=== PATIENT | female | born 1945 | race Caucasian/White ===

== ENCOUNTER 2017-03-08 10:03 | Outpatient (CLI) | payer MEDICARE ==
[~2017-03-08] VITALS: Ht 167.6 cm; Wt 88.7 kg
[~2017-03-08 10:03] MED LIST: CALC500T7 PO; CLON0.1T14 PO; CYCL10TA9 PO; FLUT1DIS2 IH; HC A28.3 PR; HYOS0.1217 PO; IPRA3AMP11 INH; IPRA4AER IH; MATZIM LA; MONT10TA24 PO; OMEP20CA12 PO; TIOT4MIS2; TYLENOL; WARF2.5T56 PO
[2017-03-08] MEDS ORDERED: FURO40TA4 PO (10:34)
[2017-03-08] MEDS ORDERED: RANI75TA21 PO (10:34)
[2017-03-08] MEDS ORDERED: DILT240T8 PO (10:34)
[2017-03-08] MEDS ORDERED: SIME125T PO (10:34)
[2017-03-08] MEDS ORDERED: LOSA1TAB69 PO (10:34)
[2017-03-08] MEDS ORDERED: BUDE10.2 IH (10:34)
[2017-03-08 10:40] VITALS: BP 150/93
[2017-03-08 11:44] LABS: BILIRUBIN,URINE NEGATIVE (NEGATIVE); KETONES,URINE NEGATIVE (NEGATIVE); LEUKOCYTE ESTERASE ,URINE 1+ (NEGATIVE); NITRITE,URINE NEGATIVE (NEGATIVE); PH,URINE 6.5 (5-9); PROTEIN,URINE NEGATIVE (NEGATIVE); UROBILINOGEN,URINE NORMAL (NORMAL)
[2017-03-08 11:45] LABS: BASOPHILS % (AUTO) 0 % (0-10); EOSINOPHILS # (AUTO) 0.3 10^3/uL (0.0-0.3); EOSINOPHILS % (AUTO) 2 % (0-10); LYMPHOCYTES # (AUTO) 1.3 X 10^3 (1.0-4.0); LYMPHOCYTES % (AUTO) 12 % (12-44); MEAN CORPUSCULAR HEMOGLOBIN 27 PG (25-34); MEAN CORPUSCULAR HGB CONC 33 G/DL (32-36); MEAN CORPUSCULAR VOLUME 80 FL (80-99); MEAN PLATELET VOLUME 11.1 FL (7.4-10.4); MONOCYTES # (AUTO) 0.8 X 10^3 (0.0-1.0); MONOCYTES % (AUTO) 7 % (0-12); NEUTROPHILS # (AUTO) 8.8 X 10^3 (1.8-7.8); NEUTROPHILS % (AUTO) 78 % (42-75); PLATELET COUNT 312 10^3/uL (130-400); RED BLOOD COUNT 5.79 10^6/uL (4.35-5.85); RED CELL DISTRIBUTION WIDTH 14.6 % (10.0-14.5); WHITE BLOOD COUNT 11.2 10^3/uL (4.3-11.0)
[2017-03-08 11:55] LABS: INR 2.7 (0.8-1.4); PROTHROMBIN TIME PATIENT 28.9 SEC (12.2-14.7); WBC,URINE RARE /HPF
[2017-03-08 12:04] LABS: ANION GAP 12 MMOL/L (5-14); BLOOD UREA NITROGEN 11 MG/DL (7-18); BUN/CREATININE RATIO 15 (0-20); CALCIUM 10.2 MG/DL (8.5-10.1); CARBON DIOXIDE 25 MMOL/L (21-32); CHLORIDE 98 MMOL/L (98-107); CREATININE SERUM 0.72 MG/DL (0.60-1.30); GFR ESTIMATED > 60; GLUCOSE 112 MG/DL (70-105); HEMOLYSIS 13 (0-29); ICTERUS 0.4 (0-1.9); LIPEMIA 5 (0-49); POTASSIUM 3.6 MMOL/L (3.6-5.0); SODIUM 135 MMOL/L (135-145)
--- NOTE | 2017-03-08 13:55 | Diagnostic Imaging Report ---
EXAMINATION: PA and lateral views of the chest. INDICATION: COPD. FINDINGS: The lungs are hyperinflated with suggestion of prominent pericardial fat pads bilaterally. No focal consolidation. No effusion or pneumothorax. The mediastinum and keila appear unremarkable. The heart size is normal. IMPRESSION: COPD. Dictated by: Dictated on workstation # [id number]
== END 2017-03-08 15:22 | disposition home or self-care (01) ==
LOC: PREOP 10:03
PROVIDERS: ATTEND Orthopaedic Surgery
DX: Z01.810 Encounter for preprocedural cardiovascular examination (principal); Z01.811 Encounter for preprocedural respiratory examination; Z01.812 Encounter for preprocedural laboratory examination; Z11.2 Encounter for screening for other bacterial diseases; M17.12 Unilateral primary osteoarthritis, left knee; I10 Essential (primary) hypertension; R53.83 Other fatigue
CPT/HCPCS: 36415; 71020; 80048; 81000; 85025; 85610; 86850; 86900; 86901; 87081

== ENCOUNTER 2017-03-14 05:51 | Inpatient (IN) | payer MEDICARE ==
[~2017-03-14] VITALS: Ht 167.6 cm; Wt 86.4 kg
[~2017-03-14 05:51] MED LIST changes: +BUDE10.2 IH; +DILT240T8 PO; +FURO40TA4 PO; +LOSA1TAB69 PO; +RANI75TA21 PO; +SIME125T PO
[2017-03-14] MEDS ORDERED: DEXAMETHASONE PF 10 MG/ML (DECADRON) VIAL ONE (06:25)
[2017-03-14] MEDS ORDERED: proPOfol 200 MG/20 ML (DIPRIVAN) VIAL IV ONE ×4 (06:25→11:36)
[2017-03-14] MEDS ORDERED: ONDANSETRON 4 MG/2 ML (SDV) Z0FRAN ONE ×2 (06:25→13:40)
[2017-03-14] MEDS ORDERED: SEVOFLURANE (ULTANE) 15 ML INHAL SOLN ONE ×4 (06:25→10:19)
[2017-03-14] MEDS ORDERED: LIDOCAINE PF 2% 5 ML (XYLOCAINE) VIAL ONE (06:25)
[2017-03-14] MEDS ORDERED: MIDAZOLAM 2 MG/2 ML (VERSED) VIAL ONE ×2 (06:26→08:34)
[2017-03-14] MEDS ORDERED: fentaNYL INJECTION 100 MCG/2 ML AMP ONE (06:26)
[2017-03-14] MEDS ORDERED: ceFAZolin 2 GM/50 ML NS 50 ML ONE (06:32)
[2017-03-14] MEDS ORDERED: GENTAMICIN 40 MG/ML 2 ML INJ SDV ONE (06:46)
[2017-03-14] MEDS ORDERED: ceFAZolin 2 GM/NS 50 ML IV ONE (07:00)
[2017-03-14 07:18] VITALS: BP 159/94
[2017-03-14] MEDS ORDERED: LACTATED RINGERS 1,000 ML IV PRN (07:22)
[2017-03-14 07:27] LABS: INR 1.1 (0.8-1.4); PROTHROMBIN TIME PATIENT 13.5 SEC (12.2-14.7)
[2017-03-14] MEDS ORDERED: FAMOTIDINE 20MG/2ML IV (PEPCID) IV ONE (07:30)
[2017-03-14] MEDS ORDERED: ONDANSETRON 4 MG/2 ML (SDV) Z0FRAN IV ONE (07:30)
--- NOTE | 2017-03-14 07:37 | Discharge Inst-Simple/Standard ---
Discharge Inst-Standard Discharge Medications New, Converted or Re-Newed RX: RX on Chart Patient Instructions/Follow Up Plan of Care/Instructions/FU: See Dr. Novak TKA instructions Activity as Tolerated: No Discharge Diet: No Restrictions Return to The [facility] For: SHAWNEE GONSALES APRN Mar 14, 2017 7:36 am
[2017-03-14] MEDS ORDERED: RT-ALBUTEROL/IPRATROPIUM 3 ML (DUONEB) VIAL INH SCH (08:15)
[2017-03-14] MEDS ORDERED: CYCLOBENZAPRINE 10 MG (FLEXERIL) TAB PO SCH (08:15)
[2017-03-14] MEDS ORDERED: FUROSEMIDE 40 MG (LASIX) TAB PO SCH (08:15)
[2017-03-14] MEDS ORDERED: BISACODYL 10 MG SUPP (DULCOLAX) PR PRN (08:15)
[2017-03-14] MEDS ORDERED: cloNIDine 0.1 MG (CATAPRES) TAB PO SCH (08:15)
[2017-03-14] MEDS ORDERED: diphenhydrAMINE 50 MG/ML INJ (BENADRYL) IV PRN (08:15)
[2017-03-14] MEDS ORDERED: HYOSCYAMINE SULFATE PO SCH (08:15)
[2017-03-14] MEDS ORDERED: PROMETHAZINE INJ 25 MG/ML (PHENERGAN) AMP IVP PRN (08:15)
[2017-03-14] MEDS ORDERED: ROPIVACAINE 5MG/ML 30ML VIAL ONE (08:32)
[2017-03-14] MEDS ORDERED: MONTELUKAST 10 MG (SINGULAIR) TAB PO SCH (09:00)
[2017-03-14] MEDS ORDERED: ALBUTEROL/IPRATROP (COMBIVENT RESPIMAT) 4 GM INHALER IH SCH (09:00)
[2017-03-14] MEDS ORDERED: ENOXAPARIN 40 MG/0.4 ML (LOVENOX) SYR SC SCH (09:00)
[2017-03-14] MEDS ORDERED: warFARin 2.5 MG (COUMADIN) TAB PO SCH (09:00)
--- NOTE | 2017-03-14 09:13 | Anesthesia-Peripheral Nerve Bl ---
Procedure Start/Stop Time Date of Procedure: Mar 14, 2017 Start Time: 08:45 Stop Time: 08:55 Peripheral Nerve Block Peripheral Nerve Blockade Risk/Benefits/Alternatives discussed, including IV injection leading to complications or seizures, nerve irritation or damage, pneumothorax, total spinal anesthesia, injection, and/or bleeding. Approach: LEFT FEMORAL NERVE BLOCK Side Confirmed: LEFT Indication: Req Pain Mgmt by Surgeon Specifically requested for management of pain by: Dr. Novak Patient Condition Vital Signs Vital Signs Date Time Temp Pulse Resp B/P (MAP) Pulse Ox O2 Delivery O2 Flow Rate FiO2 03/14/17 07:18 97.3 90 16 159/94 95 Nasal Cannula 2.50 Patient Condition: Sedate/contact maintained Procedure Prepartation: Chlorhexidine Position: Supine [place]: Short-bevel Needle (s) Size: 22g 2" Technique: Nerve Stimulation, Ultrasound If paresthesia, describe quali: Paresthesia during injection. Needle repositioned with improvement Sedation Given: Midazolam (2 mg) Injectate: ropivacaine Concentration %: 0.5 Volume (ml): 30 Epinephrine used: No Narrative Injection was made incrementally with constant monitoring. Aspiration every (mls): 5 Blood Aspirated: No Pain on injection noted: Yes (Needle readjusted with improvement) Normal Resistance on injection: No Events Events: None:easy well tolerated Sucess: Full evaluation-pending Patient Conditon Post Peripheral Nerve Block Post Peripheral Nerve Block Vital Signs: Blood Pressure: Systolic Diastolic Heart Rate Blood Pressure Systolic: 159 Blood Pressure Diastolic: 94 Pulse Rate (adult): 90 SHERRY GRACIA CRNA Mar 14, 2017 09:13
--- NOTE | 2017-03-14 09:44 | Progress Note-Pre Operative ---
Pre-Operative Progress Note H&P Reviewed The H&P was reviewed, patient examined and no changes noted. Date Seen by Provider: Mar 14, 2017 Time Seen by Provider: : Date H&P Reviewed: Mar 14, 2017 Time H&P Reviewed: :30 Pre-Operative Diagnosis: Primary Osteoarthritis Left knee JAIRO HERNANDEZ DO Mar 14, 2017 9:44 am
[2017-03-14] MEDS ORDERED: INTRA-ARTICULAR INJ ONE ×4 (10:00)
[2017-03-14] MEDS ORDERED: TRANEXAMIC ACID 100 MG/ML 10 ML INJECTION IV ONE ×2 (11:13→11:15)
[2017-03-14] MEDS ORDERED: NEO/POLY/BAC (NEOSPORIN) OINT 15 GM TUBE ONE (11:50)
--- NOTE | 2017-03-14 11:57 | Progress Note-Post Operative ---
Post-Operative Progess Note Surgeon (s)/Audio Installer (s) Surgeon JAIRO HERNANDEZ DO Audio Installer: Jorge Beauchamp INTERNAL CONTROL SPECIALIST-C Pre-Operative Diagnosis Primary Osteoarthritis Left knee Post-Operative Diagnosis same Procedure & Operative Findings Date of Procedure 03/14/17 Procedure Performed/Findings Left Total Knee Arthroplasty Anesthesia Type IV general, Spinal, Femoral n. block Estimated Blood Loss Estimated blood loss (mL): 300ml Specimens/Packing Specimens Removed none Packing: none JAIRO HERNANDEZ DO Mar 14, 2017 11:57 am
[2017-03-14 12:00] VITALS: BP 128/77
--- NOTE | 2017-03-14 12:53 | Diagnostic Imaging Report ---
2 views of the left knee. Indication: post total knee arthroplasty Findings: There is femoral and tibial prosthesis with patellar resurfacing and prosthesis seen. Anterior soft tissue post-operative changes are noted with anterior skin danna seen. Impression: Baseline post left total knee arthroplasty in good alignment. Dictated by: Dictated on workstation # [id number]
[2017-03-14 13:20] VITALS: BP 128/77
[2017-03-14] MEDS ORDERED: ENOX100D4 INJ (13:59)
[2017-03-14] MEDS ORDERED: MONT10TA24 PO (13:59)
[2017-03-14] MEDS ORDERED: WARF2.5T82 PO (13:59)
[2017-03-14] MEDS ORDERED: IPRA4AER IH (13:59)
[2017-03-14] MEDS ORDERED: ACET-93 PO (14:04)
[2017-03-14] MEDS: D5 1/2 NS 1000 ML IV SOLUTION 1,000 ML IV SCH (14:10)
[2017-03-14] MEDS ORDERED: PATIENT MAY USE OWN MED,SINGLE MED PO SCH (14:45)
[2017-03-14] MEDS ORDERED: warFARin 5 MG (COUMADIN) TAB PO NR (15:00)
[2017-03-14] MEDS: ACETAMINOPHEN 325 MG TABLET/CAPLET (TYLENOL) PO PRN (15:11)
[2017-03-14] MEDS ORDERED: LOSARTAN 50 MG (COZAAR) TAB PO SCH (15:16)
[2017-03-14] MEDS: RT-ALBUTEROL/IPRATROPIUM 3 ML (DUONEB) VIAL INH SCH ×3 (15:17→22:28)
[2017-03-14] MEDS ORDERED: HYDROCHLOROTHIAZIDE 12.5 MG (HCTZ) CAP PO SCH (15:17)
[2017-03-14 16:13] VITALS: BP 127/84
[2017-03-14] MEDS: ceFAZolin 2 GM/50 ML NS 50 ML IV SCH (18:10)
[2017-03-14 20:01] VITALS: BP 128/71
[2017-03-14] MEDS: ENOXAPARIN 100 MG/1 ML (LOVENOX) SYR SC SCH (20:10)
[2017-03-14] MEDS: HYDROCHLOROTHIAZIDE 12.5 MG (HCTZ) CAP PO SCH (20:10)
[2017-03-14] MEDS: MONTELUKAST 10 MG (SINGULAIR) TAB PO SCH (20:11)
[2017-03-14] MEDS: LOSARTAN 50 MG (COZAAR) TAB PO SCH (20:11)
[2017-03-14] MEDS ORDERED: FAMOTIDINE 20 MG (PEPCID) TABLET PO PRN (21:00)
[2017-03-14] MEDS: SIMETHICONE 80 MG (MYLICON) CHEW PO PRN (21:54)
[2017-03-14] MEDS: ONDANSETRON 4 MG/2 ML (SDV) Z0FRAN IVP PRN (21:54)
--- NOTE | 2017-03-14 22:09 | OPERATIVE REPORT ---
DATE OF SERVICE: 03/14/2017 PREOPERATIVE DIAGNOSIS: Primary osteoarthritis, left knee. POSTOPERATIVE DIAGNOSIS: Primary osteoarthritis, left knee. PROCEDURE: Left total knee arthroplasty. SURGEON: Jairo Hernandez DO AFTER SCHOOL PROGRAM DIRECTOR: NAYLA Larson PLANE RUNNER DUTIES: Jorge Beauchamp, surgical seed laboratory assistant, was used throughout the entire procedure for patient positioning, retraction soft tissues, placement of metallic implants, deep and superficial soft tissue closure, dressing application and patient transfer. ANESTHESIA: IV general with femoral nerve block and spinal block. INDICATIONS AND FINDINGS: The patient is a 72-year-old female who seen me with chief complaint of progressive left knee pain nonresponsive to conservative treatment. The patient had a varus deformity in the left knee and lacked 10 degrees of extension of her left knee. X-rays revealed collapse of the medial compartment, hypertrophic spur formation. She failed conservative treatment. The patient was taken to the surgery where a total knee arthroplasty was performed on the left without complication utilizing the Biomet Lexyguard total knee system with a press-fit 62.5 mm femoral component, a 67 mm cemented tibial component, a 31 mm all-polyethylene cemented thin patellar component with a 13 mm anterior stabilized tibial bearing implant. Palacos bone cement was used during the procedure. PROCEDURE IN DETAIL: The patient was seen by anesthesia preoperatively and under ultrasound guidance a femoral nerve block was performed on the left to decrease postop pain and decrease the amount of medication required during the surgical procedure. The patient was transported to the operating room where subarachnoid block was administered. The patient was placed supine upon the operating table. A well-padded pneumatic tourniquet was placed above the upper aspect of left thigh. A ChloraPrep and sterile drape at the left lower extremity was performed. The left leg was elevated and exsanguinated and the tourniquet inflated to 300 mmHg. The patient's anesthesia was augmented throughout the procedure with IV propofol. An anterior longitudinal midline incision was made. The incision was deepened through a medial parapatellar incision. The patella was subluxed laterally, hypertrophic osteophyte formation over the medial and lateral femoral condyle and the medial tibial plateau was removed. Subperiosteal dissection was used to expose the proximal medial tibia and the remnants of the medial and lateral menisci as well as the anterior cruciate ligament were excised. A docking pilot hole was then drilled in the distal femur. An intramedullary surjit was inserted. Utilizing a 6-degree valgus cutting angle a distal femoral cutting guide was assembled and a distal femoral osteotomy was completed. The distal femur was sized to a 62.5 mm femoral component. A four-way cutting guide was assembled. Anterior, posterior and chamfer cuts of the distal femur were made. The tibia was subluxed anteriorly. A docking pilot hole was then drilled in proximal tibia. An intramedullary surjit was inserted measuring out the exposed bone over the proximal medial tibia. A proximal tibial cutting guide was assembled and a proximal tibial osteotomy was completed. The knee was taken into full extension initially with a 12 mm spacer. Hypertrophic spur formation from the patellar rim was removed with a bone rongeur. The posterior aspect of the patella was resected through a cutting guide and drilled through drill guide. Provisional components were inserted with the knee. Knee was cycled through range of motion. The patient continue to demonstrate slight instability on Sangeeta and Drawer testing leading to 90 degrees of flexion, 13 mm trial was inserted and full stability and full extension of the knee was obtained. Rotation of the tibial component was noted and marked on the proximal tibia. Proximal tibia was then broached except the I-beam stem portion of the tibial implant. The bony surfaces were irrigated extensively with normal saline solution. Palacos bone cement was then mixed. This was pressurized in the proximal tibia. The tibial component was cemented in place. The femoral component was press-fit in place. The knee was taken into full extension with provisional tibial bearing implant. The patellar component was cemented in place and held with a clamp. Excess cement was removed. The cement was allowed to set. The trial polyethylene insert was then removed. The 13 mm anterior stabilized implant was then inserted and locked anteriorly with a locking bar. Knee was cycled through range of motion. Full motion is noted with no instability in flexion. The tourniquet was released. Hemostasis was obtained with electrocautery. The knee was placed in 90 degrees of flexion. The medial retinaculum was closed with multiple interrupted [id number] sutures of #1 Vicryl, reinforced with a running suture of #1 StrataFix. The subcutaneous tissues were closed in layers with 0 and 2-0 Vicryl suture. The skin was closed with stainless steel danna and Adaptic, Neosporin and bulky dressing was placed about the left knee. The patient was awakened and was transported to a postop recovery with anesthesia personnel present, in stable condition. Job ID: [id number] DocumentID: [id number] Dictated Date: 03/14/2017 12:14:01 Heart Doctor Date: 03/14/2017 20:19:20 Dictated By: JAIRO HERNANDEZ DO
[2017-03-15 00:18] VITALS: BP 128/63
[2017-03-15] MEDS: RT-ALBUTEROL/IPRATROPIUM 3 ML (DUONEB) VIAL INH SCH ×6 (02:02→21:26)
[2017-03-15] MEDS: ceFAZolin 2 GM/50 ML NS 50 ML IV SCH (02:15)
[2017-03-15 04:00] VITALS: BP 113/68
[2017-03-15] MEDS: D5 1/2 NS 1000 ML IV SOLUTION 1,000 ML IV SCH (04:09)
[2017-03-15] MEDS: RT-ADVAIR HFA 115/21 MCG PER PUFF IH SCH ×2 (06:38→18:59)
[2017-03-15 06:45] LABS: MEAN PLATELET VOLUME 11.1 FL (7.4-10.4); RED BLOOD COUNT 5.1 10^6/uL (4.35-5.85); RED CELL DISTRIBUTION WIDTH 14.2 % (10.0-14.5); WHITE BLOOD COUNT 10.4 10^3/uL (4.3-11.0)
[2017-03-15 06:55] LABS: INR 1.3 (0.8-1.4)
[2017-03-15 07:02] LABS: ANION GAP 10 MMOL/L (5-14); BLOOD UREA NITROGEN 6 MG/DL (7-18); BUN/CREATININE RATIO 9 (0-20); CALCIUM 9.8 MG/DL (8.5-10.1); CARBON DIOXIDE 29 MMOL/L (21-32); CHLORIDE 98 MMOL/L (98-107); GFR ESTIMATED > 60; GLUCOSE 91 MG/DL (70-105); HEMOLYSIS 6 (-100-29); ICTERUS 0.6 (-100-1.9); LIPEMIA 4 (-100-49); SODIUM 137 MMOL/L (135-145)
[2017-03-15] MEDS: HYDROcodone/APAP 10 MG/325 MG (LORTAB) TAB PO PRN ×4 (07:40→20:23)
[2017-03-15 07:48] VITALS: BP_SYST 117; BP_SYST 128; BP_DIAS 71; BP_DIAS 75
[2017-03-15] MEDS: ONDANSETRON 4 MG/2 ML (SDV) Z0FRAN IVP PRN (07:48)
[2017-03-15] MEDS: DILTIAZEM 240 MG (CARDIZEM CD) CAP PO SCH (08:40)
[2017-03-15] MEDS: SENNA W/DOCUSATE (SENOKOT S) TABLET PO SCH ×2 (08:40→20:22)
[2017-03-15] MEDS: morphine INJ 10 MG/ML 1ML (SYR OR VIAL) IVP PRN (08:41)
--- NOTE | 2017-03-15 10:14 | Consultation-Hospitalist ---
BRAUNFRANCHESCA WALLACE 03/15/17 1014: HPI History of Present Illness: HPI/Chief Complaint CC: Medical management following knee surgery I assessed the patient with medical student and will focus on pain management, restarting Lovenox for bridge due to Coumadin therapy maintenance, adding scopolamine patch for chronic nausea and hemorrhoid cream for issues that she is having with bleeding hemorrhoids. Source: patient Exam Limitations: no limitations Date Seen 03/15/17 Attending Physician Apollo Novak DO PCP No,Local Physician Referring Physician Date of Admission Mar 14, 2017 at 05:51 Home Medications & Allergies Home Medications Reviewed patient Home Medication Reconciliation Form Allergies Allergies Coded Allergies betamethasone (Verified Allergy, Intermediate, HIGH B/P, 03/08/17) povidone-iodine (Verified Allergy, Intermediate, RASH, 03/08/17) prednisone (Verified Allergy, Intermediate, HIGH B/P, HEADACHE, IRR HR, ) soap (Verified Allergy, Intermediate, RASH, 03/08/17) EMIL Inhibitors (Verified Allergy, Mild, 04/16/15) ciprofloxacin (Verified Allergy, Mild, 03/08/17) codeine (Verified Allergy, Mild, 03/08/17) Uncoded Allergies STEROIDS ( Allergy, Intermediate, HEADACHE, 03/08/17) Past Gwbirmj-Druocx-Rmyxel Hx Patient Social History Employed/Student: retired Alcohol Use: Denies Use Recreational Drug Use: No Smoking Status: Former Smoker Physical Abuse Screen: No Sexual Abuse: No Recent Foreign Travel: No Contact w/other who traveled: No Recent Hopitalizations: No Recent Infectious Disease Expo: No Immunizations Up To Date Date of Pneumonia Vaccine: Jul 04, 2016 Seasonal Allergies Seasonal Allergies: No Surgeries HX Surgeries: Yes (c/scope 07/2014) Surgeries: Adenoidectomy, Appendectomy, Gallbladder, Tonsillectomy, Tubal Ligation Respiratory Hx Respiratory Disorders: Yes Respiratory Disorders: Asthma Cardiovascular Hx Cardiovascular Disorders: Yes Cardiac Disorders: Atrial Fibrillation Neurological Hx Neurological Disorders: No Reproductive System Sexually Transmitted Disease: No HIV/AIDS: No Genitourinary Hx Genitourinary Disorders: Yes (incontinent) Gastrointestinal Hx Gastrointestinal Disorders: Yes Gastrointestinal Disorders: Gastroesophageal Reflux, Hemorrhoids, Polyps, Irritable Bowel Musculoskeletal Hx Musculoskeletal Disorders: Yes (carpal tunnel) Musculoskeletal Disorders: Arthritis Endocrine Hx Endocrine Disorders: No HEENT HX ENT Disorders: No Loss of Vision: Bilateral Hearing Impairment: Denies Cancer Hx Cancer: No Psychosocial Hx Psychiatric Problems: No Integumentary HX Skin/Integumentary Disorder: No Blood Transfusions Hx Blood Disorders: No Adverse Reaction to a Blood Tr: No (N/A) Family Medical History Significant Family History: No Pertinent Family Hx Family Hx: COPD 19 MOTHER Cardiovascular disease Dementia 19 MOTHER Guillain-[place] syndrome 19 FATHER History of emphysema in sibling G8 SISTER Hypertension 19 MOTHER G8 SISTER Tuberculosis 19 FATHER Review of Systems Date Seen by Provider: Mar 15, 2017 Time Seen by Provider: 10:00 Constitutional: see HPI EENTM: no symptoms reported Respiratory: no symptoms reported Cardiovascular: no symptoms reported Gastrointestinal: nausea Genitourinary: no symptoms reported Musculoskeletal: joint pain Skin: no symptoms reported Psychiatric/Neurological: No Symptoms Reported All Other Systems Reviewed Negative Unless Noted: Yes Physical Exam Physical Exam Vital Signs Vital Sign - Last 12Hours 03/14/17 07:18 Temp 97.3 Pulse 90 Resp 16 B/P (MAP) 159/94 Pulse Ox 95 O2 Delivery Nasal Cannula O2 Flow Rate 2.50 Capillary Refill : General Appearance: No Apparent Distress, WD/WN, Chronically ill, Obese Eyes: Bilateral Eye Normal Inspection, Bilateral Eye PERRL HEENT: PERRL/EOMI, Normal ENT Inspection, Pharynx Normal Neck: Full Range of Motion, Normal Inspection, Non Tender, Supple, Carotid Bruit Respiratory: Chest Non Tender, Lungs Clear, Normal Breath Sounds, No Accessory Muscle Use, No Respiratory Distress Cardiovascular: No Edema, No Gallop, No JVD, No Murmur, Normal Peripheral Pulses, Irregularly Irregular Gastrointestinal: Normal Bowel Sounds, No Organomegaly, No Pulsatile Mass, Non Tender, Soft Back: Normal Inspection, No CVA Tenderness, No Vertebral Tenderness Extremity: Normal Capillary Refill, Normal Inspection, Normal Range of Motion, Non Tender, No Calf Tenderness, No Pedal Edema Neurologic/Psychiatric: Alert, Oriented x3, No Motor/Sensory Deficits, Normal Mood/Affect Skin: Normal Color, Warm/Dry Lymphatic: No Adenopathy Results Results/Procedures Lab Laboratory Tests 03/15/17 06:25 Assessment/Plan Admission Diagnosis Assessment: Status post uncomplicated left total knee replacement by Dr. Novak POD # 1 Acute hypokalemia Atrial fibrillation Anticoagulation for stroke prophylaxis due to atrial fibrillation Flareup of hemorrhoids Severe nausea Asthma Hypertension GERD Assessment and Plan Plan: Replace potassium Maintain home inhalers Monitor INR Lovenox bridge Pain control Scopolamine patch Anusol HC for hemorrhoid flare Clinical Quality Measures DVT/VTE Risk/Contraindication: Risk Factor Score Per Nursin RFS Level Per Nursing on Admit: 3=High RED WONG MEDICAL STUDENT 03/15/17 1137: HPI History of Present Illness: HPI/Chief Complaint Patient is a 72 yo F who has been admitted for recovery following left knee surgery. Surgery was preformed by Dr. Novak yesterday. Patient's primary care contact is Jennifer Scott APRN at [facility] in [place]. Patient reports post operative pain of 5 on a 1-10 scale. Patient has only walked a few steps today, says pain does not allow her to walk anymore. Patient has been urinating consistently without pain but has not had a bowel movement today. Patient reports hemorrhoids with bleeding on and off since Monday. Patient also complains of nausea without vomiting. Patient was given scopolamine patch for nausea and hydrocortisone cream for hemorrhoids. Source: patient Exam Limitations: no limitations Home Medications & Allergies Allergies Allergies Coded Allergies betamethasone (Verified Allergy, Intermediate, HIGH B/P, 03/08/17) povidone-iodine (Verified Allergy, Intermediate, RASH, 03/08/17) prednisone (Verified Allergy, Intermediate, HIGH B/P, HEADACHE, IRR HR, ) soap (Verified Allergy, Intermediate, RASH, 03/08/17) EMIL Inhibitors (Verified Allergy, Mild, 04/16/15) ciprofloxacin (Verified Allergy, Mild, 03/08/17) codeine (Verified Allergy, Mild, 03/08/17) Uncoded Allergies STEROIDS ( Allergy, Intermediate, HEADACHE, 03/08/17) Past Kdijqei-Mwhqgi-Zqigpe Hx Family Medical History Family Hx: COPD 19 MOTHER Cardiovascular disease Dementia 19 MOTHER Guillain-[place] syndrome 19 FATHER History of emphysema in sibling G8 SISTER Hypertension 19 MOTHER G8 SISTER Tuberculosis 19 FATHER Physical Exam Physical Exam Vital Signs Vital Sign - Last 12Hours 03/14/17 07:18 Temp 97.3 Pulse 90 Resp 16 B/P (MAP) 159/94 Pulse Ox 95 O2 Delivery Nasal Cannula O2 Flow Rate 2.50 Results Results/Procedures Lab Laboratory Tests 03/15/17 06:25 FRANCHESCA BRAUN DO Mar 15, 2017 10:14 RED WONG MEDICAL STUDENT Mar 15, 2017 11:37
[2017-03-15] MEDS ORDERED: SCOPOLAMINE 1.5 MG (TRANSDERM-SCOP) PATCH TOP SCH (10:30)
[2017-03-15] MEDS ORDERED: HYDROCORTISONE 2.5% CREAM (ANUSOL-HC) 30 GM TOP PRN (10:30)
[2017-03-15] MEDS: ACETAMINOPHEN 325 MG TABLET/CAPLET (TYLENOL) PO PRN (10:34)
--- NOTE | 2017-03-15 10:34 | Occupational Therapy Eval ---
OT Evaluation-General/PLF Medical Diagnosis Admission Date Mar 14, 2017 at 05:51 Medical Diagnosis: left TKA Onset Date: Mar 14, 2017 Therapy Diagnosis Therapy Diagnosis: decreased self care skills Height/Weight Height (Feet): 5 Height (Inches): 6.00 Weight (Pounds): 190 Weight (Ounces): 8.0 Precautions Precautions/Isolations: Fall Prevention, Standard Precautions Safety Interventions: None Weight Bear Status Location Restriction: L CARLY Referral Physician: Kishore Medical History Pertinent Medical History: Atrial Fib, Arthritis, GERD Additional Medical History carpal tunnel, irritable bowel Current History pt s/p elective left TKA Reviewed History: Yes Social History Home: Single Level Current Living Status: Spouse Entry Into Home: Stairs With Railing Steps Into Home: 6 ADL-Prior Level of Function ADL PLOF Comments Pt states she is able to complete basic self care tasks without assistance. Pt reports minimal activity level secondary to SOB. Pt states she does the cooking , but daughter assists with cleaning. Uses O2 at night and PRN during the day. Has not been using any assistive devices for mobility. DME/Equipment: Bath Chair, Tub/Shower OT Current Status Subjective Pt sitting EOB, agrees to therapy. Pt reports 5/10 pain in left knee, states it was 10/10 but has gotten better. Mental Status/Objective Patient Orientation: Person, Place, Situation Attachments: IV, Oxygen Current Glasses/Contacts: Yes Dentures/Partials: Yes ADL-Treatment ADL-Current Pt completed sponge bath while seated EOB. Upper body bathing completed with set up. Pt able to wash buttocks and peter area. Did not address lower legs secondary to ADRIAN hose. Pt donned hospital gown with assist secondary to IV. Don underwear with CGA for standing balance during pant hike. Pt brushed teeth with set up while seated EOB. Pt in bed with needs met after session. Functional [place] Measure 0=Not Assessed/NA 4=Minimal Assistance 1=Total Assistance 5=Supervision or Setup 2=Maximal Assistance 6=Modified [place] 3=Moderate Assistance 7=Complete IndependenceIRFPAI Quality Coding Scale 6 Independent with activity with or without an assistive device 5 Patient requires set up or clean up by helper. Patient completes activity by themselves 4 Supervision or touching assist (CGA). [place] provide cues , steadying assist 3 The helper provides less than half the effort to complete the activity 2 The helper provides more than half the effort to complete the activity 1 Dependent. The helper does all the effort to complete an activity 7 Patient refused to complete or attempt activity 9 The patient did not perform the activity before the current illness or injury 88 Not attempted due to Medical conditions or safety concerns Grooming (FIM): 5 Lower Body Dressing (FIM): 4 Education OT Patient Education: Rehab process Teaching Recipient: Patient Teaching Methods: Discussion Response to Teaching: Verbalize Understanding OT Short Term Goals Short Term Goals 1=Demonstrate adherence to instructed precautions during ADL tasks. 2=Patient will verbalize/demonstrate understanding of assistive devices/ modifications for ADL. 3=Patient will improve strength/tolerance for activity to enable patient to perform ADL's. OT Supervisor Paper Testing Goals Supervisor Paper Testing Goals Time Frame: Mar 29, 2017 Eating (FIM): 6 Grooming(FIM): 6 Bathing(FIM): 5 Upper Body Dressing(FIM): 6 Lower Body Dressing(FIM): 5 Toileting(FIM): 6 Toilet/Commode Transfer(FIM): 6 Additional Goals: 1-Demonstrate ADL Tasks, 2-Verbalize Understanding, 3- ImproveStrength/Randall 1=Demonstrate adherence to instructed precautions during ADL tasks. 2=Patient will verbalize/demonstrate understanding of assistive devices/ modifications for ADL. 3=Patient will improve strength/tolerance for activity to enable patient to perform ADL's. OT Education/Plan Problem List/Assessment Assessment: Dependent Transfers, Impaired Self-Care Skills Pt s/p left TKA. Pt to benefit from skilled OT intervention for ADL training, transfers, adaptive equipment training as needed and home safety education to improve level of function and allow safe discharge plan. Discharge Recommendations Plan/Recommendations: Continue POC Treatment Plan/Plan of Care Treatment,Training & Education: Yes Patient would benefit from OT for education, treatment and training to promote independence in ADL's, mobility, safety and/or upper extremity function for ADL' s. Plan of Care: ADL Retraining, Functional Mobility, UE Funct Exercise/Act Treatment Duration: Mar 29, 2017 # of days/week 5 Visits Per Week: 5 Agreement: Yes Rehab Potential: Good Time/GCodes Start Time: 09:05 Stop Time: 09:40 Total Time Billed (hr/min): 35 Billed Treatment Time 1 visit, EVL(15minutes), ADL(20minutes) COREY ARORA OT Mar 15, 2017 10:34
--- NOTE | 2017-03-15 11:30 | Physical Therapy Evaluation ---
PT Evaluation-General Medical Diagnosis Admission Date Mar 14, 2017 at 05:51 Medical Diagnosis: left TKA Onset Date: Mar 14, 2017 Therapy Diagnosis Therapy Diagnosis: impaired mobility, strength, endurance, ROM Height/Weight Height (Feet): 5 Height (Inches): 6.00 Weight (Pounds): 190 Weight (Ounces): 8.0 Precautions Precautions/Isolations: Fall Prevention, Standard Precautions Weight Bear Status Location Restriction: L Referral Physician: Kishore Reason for Referral: Evaluation/Treatment Medical History Pertinent Medical History: Atrial Fib, Arthritis, GERD Additional Medical History former smoker, incontinent, hemorrhoids, polyps, IBS, carpal tunnel, surg ( adenoidectomy, appendectomy, gallbladder, tonsillectomy, tubal ligation) Current History left TKA Reviewed History: Yes Social History Home: Multilevel Current Living Status: Spouse Entry Into Home: Stairs With Railing PT Steps Into Home: 6 Prior/Core FIM Prior Level of Function Functional [place] Measure 0=Not Assessed/NA 4=Minimal Assistance 1=Total Assistance 5=Supervision or Setup 2=Maximal Assistance 6=Modified [place] 3=Moderate Assistance 7=Complete [place] Bed Mobility: 7 Transfers (B,C,W/C) (FIM): 7 Gait: 7 PT Evaluation-Current Subjective Patient in bed pre tx, agrees to PT, has pain of 6/10 in left knee. Pt/Family Goals "to get her knee working again" Objective Patient Orientation: Normal For Age Attachments: Oxygen, IV 2L of O2 nasal canula ROM/Strength ROM Lower Extremities left knee extension +5 degrees, flexion 80 degrees Strenght Lower Extremities NT Neuromuscular (Tone, Coordination, Reflexes) WNL Sensory Vision: Wears Glasses Hearing: Functional Sensation Right Lower Extremit: Intact Sensation Left Lower Extremity: Intact Sensation Lower Extremities Patient does state she has some numbness in the medial portion of her left knee Transfers Functional [place] Measure 0=Not Assessed/NA 4=Minimal Assistance 1=Total Assistance 5=Supervision or Setup 2=Maximal Assistance 6=Modified [place] 3=Moderate Assistance 7=Complete [place] Transfers (B, C, W/C) (FIM): 4 Scootin Rollin Supine to/from Sit: 4 Sit to/from Stand: 4 min assist for supine to sit, CGA to stand, cues for safety and hand placement Gait Mode of Locomotion: Walk Anticipated Mode of Locomotion: Walk Gait (FIM): 1 Distance: 3' Gait Level of Assist: 4 Gait Persons Needed: 1 Gait Assistive Device: FWW Comments/Gait Description Patient got dizzy initially, had to sit and stand again once her head cleared. She was able to take a few steps sideways toward the head of the bed with CGA. Balance Sitting Static: Normal Sitting Dynamic: Normal Standing Static: Good Standing Dynamic: Good Treatment left TKA protocol x10 (AP, QS, HS, SAQ, SLR) Assessment/Needs Patient has impaired mobility, strength, endurance, and ROM post left TKA. CPM applied at -2/56 degrees. Rehab Potential: Fair PT Shredded Filler Cigar Maker Machine Goals Long-Term Goals PT Shredded Filler Cigar Maker Machine Goals Time Frame: Mar 22, 2017 Transfers (B,C,W/C) (FIM): 5 Gait (FIM): 2 Distance: 50' Gait Level of Assist: 4 Gait Assistive Device: FWW PT Plan Problem List Problem List: Activity Tolerance, Functional Strength, Safety, Balance, Gait, Transfer, Bed Mobility, ROM Treatment/Plan Treatment Plan: Continue Plan of Care Treatment Plan: Bed Mobility, Education, Functional Activity [place], Functional Strength, Gait, Safety, Therapeutic Exercise, Transfers Treatment Duration: Mar 22, 2017 # of days/week 5-6 Visits Per Week: 10-11 Minutes/Day (M-F): 15-30 Minutes/Day (Sat/Demarco): 15-30 Pt/Family Agrees w/Plan: Yes Safety Risks/Education Patient Education: Gait Training, Transfer Techniques, Reviewed Use of Ice, Correct Positioning, Disease Process, Safety Issues Teaching Recipient: Patient Teaching Methods: Demonstration, Discussion Response to Teaching: Reinforcement Needed Discharge Recommendations Plan Patient will perform bed mobility and transfer training, balance and endurance training, functional strengthening, stair training, gait training, and education , to improve functional mobility and independence at home. Therapy D/C Recommendations: Home w/ Family Support Time/GCodes Time In: 1050 Time Out: 1125 Total Billed Treatment Time: 35 Total Billed Treatment 1 visit EVL 15' FA 20' LETICIA MCCRARY PT Mar 15, 2017 11:30
[2017-03-15 12:00] VITALS: BP 115/70
--- NOTE | 2017-03-15 12:18 | Progress Note (SOAP) ---
Subjective Date Seen by Provider: Mar 15, 2017 Time Seen by Provider: 12:15 Subjective/Events-last exam Currently no complaints, pain fairly well controlled, today is POD #1 s/p left TKA. Review of Systems General: No Chills, No Night Sweats HEENT: No Visual Changes Pulmonary: No Dyspnea, No Cough Gastrointestinal: No: Nausea, Vomiting Neurological: No: Numbness Objective Exam Vital Signs Date Time Temp Pulse Resp B/P (MAP) Pulse Ox O2 Delivery O2 Flow Rate FiO2 03/15/17 12:00 100.4 107 20 115/70 93 Nasal Cannula 2.50 03/15/17 11:27 94 Nasal Cannula 2.50 03/15/17 08:00 94 Nasal Cannula 2.50 03/15/17 07:48 97.5 104 20 117/75 95 Nasal Cannula 2.50 03/15/17 06:35 96 Nasal Cannula 2.50 03/15/17 04:00 97.5 97 18 113/68 95 Nasal Cannula 2.50 03/15/17 02:03 92 Nasal Cannula 2.50 03/15/17 00:18 98.7 85 20 128/63 96 Nasal Cannula 2.50 03/14/17 22:28 98 Nasal Cannula 2.50 03/14/17 20:01 97.1 76 20 128/71 95 Nasal Cannula 2.50 03/14/17 20:00 Nasal Cannula 2.50 03/14/17 19:24 97 Nasal Cannula 2.50 03/14/17 16:13 96.8 77 18 127/84 95 Nasal Cannula 2.50 03/14/17 15:17 95 Nasal Cannula 2.50 03/14/17 13:30 95 Nasal Cannula 2.50 03/14/17 13:20 96.8 76 16 128/77 92 Nasal Cannula 2.50 I & O 03/15/17 07:00 Intake Total 1942 ml Output Total 800 ml Balance 1142 ml Capillary Refill : Less Than 3 Seconds General Appearance: No Apparent Distress Respiratory: Chest Non Tender, Lungs Clear Cardiovascular: Normal Peripheral Pulses Gastrointestinal: soft Extremity: Normal Capillary Refill, No Calf Tenderness, No Pedal Edema Neurologic/Psychiatric: Alert, Oriented x3 Skin: Normal Color, Warm/Dry (dressing to left knee CDI) Results Lab Laboratory Tests 03/15/17 06:25: White Blood Count 10.4, Red Blood Count 5.10, Hemoglobin 13.7, Hematocrit 42, Mean Corpuscular Volume 81, Mean Corpuscular Hemoglobin 27, Mean Corpuscular Hemoglobin Concent 33, Red Cell Distribution Width 14.2, Platelet Count 242, Mean Platelet Volume 11.1H, Prothrombin Time 16.0H, INR Comment 1.3, Sodium Level 137, Potassium Level 3.0L, Chloride Level 98, Carbon Dioxide Level 29, Anion Gap 10, Blood Urea Nitrogen 6L, Creatinine 0.70, Estimat Glomerular Filtration Rate > 60, BUN/Creatinine Ratio 9, Glucose Level 91, Calcium Level 9.8 Assessment/Plan Assessment/Plan Assess & Plan/Chief Complaint A: s/p left TKA Primary OA left knee hypokalema COPD Atrial fibrillation P: Continue current treatment, K dur for hypokalemia. repeat labs tomorrow, start physical therapy Clinical Quality Measures DVT/VTE Risk/Contraindication: Risk Factor Score Per Nursin RFS Level Per Nursing on Admit: 3=High SHAWNEE GONSALES APRN Mar 15, 2017 12:18 pm
[2017-03-15] MEDS: KCL 20 MEQ TAB (K-DUR) PO SCH ×2 (12:31→17:37)
--- NOTE | 2017-03-15 14:28 | Anesthesia-Regional Post-Op ---
Regional Patient Condition Mental Status: Alert, Oriented x3 Circulation: Same as Pre-Op Headache: Absent Sensation: Full Recovery Motor Block: Absent Post Op Complications Complications None Follow Up Care/Instructions Patient Instructions None needed. Anesthesia/Patient Condition Patient is doing fair, stable vital signs, complains of pain and nausea. She received scopolamine patch this am and felt like it has helped the nausea, but it is still present. Patient reports she is taking pain medication prior to working with PT. RENEE MANE CRNA Mar 15, 2017 14:28
--- NOTE | 2017-03-15 15:55 | Physical Therapy Daily Note ---
PT Daily Note-Current Subjective Patient in bed pre tx, agrees to PT, has pain of 5/10. Laying on right side with pillow between knees and polar care on. Appearance Patient in recliner post tx with legs elevated, has nurse call, phone, tray, all needs met. Mental Status Patient Orientation: Normal For Age Attachments: Oxygen, IV Transfers Functional [place] Measure 0=Not Assessed/NA 4=Minimal Assistance 1=Total Assistance 5=Supervision or Setup 2=Maximal Assistance 6=Modified [place] 3=Moderate Assistance 7=Complete IndependenceIRFPAI Quality Coding Scale 6 Independent with activity with or without an assistive device 5 Patient requires set up or clean up by helper. Patient completes activity by themselves 4 Supervision or touching assist (CGA). [place] provide cues , steadying assist 3 The helper provides less than half the effort to complete the activity 2 The helper provides more than half the effort to complete the activity 1 Dependent. The helper does all the effort to complete an activity 7 Patient refused to complete or attempt activity 9 The patient did not perform the activity before the current illness or injury 88 Not attempted due to Medical conditions or safety concerns Transfers (B, C, W/C) (FIM): 4 Scootin Rollin Supine to/from Sit: 5 Sit to/from Stand: 4 cues for safety and hand placement Gait Training Gait (FIM): 1 Distance: 20' Gait Level of Assist: 4 Gait Persons Needed: 1 Gait Assistive Device: FWW CGA, antalgic, slow, flexed left knee Exercises Supine Ex: Ankle pumps, Quad Set, Heel Slides, Short Arc Quads, Straight leg raise Supine Reps: 10 Treatments bed mobility and transfers, ambulation, functional strengthening Assessment Current Status: Fair Progress improving ambulation and transfers PT [facility] Goals Toy Stuffer Goals PT [facility] Goals Time Frame: Mar 22, 2017 Transfers (B,C,W/C) (FIM): 5 Gait (FIM): 2 Distance: 50' Gait Level of Assist: 4 Gait Assistive Device: FWW PT Plan Problem List Problem List: Activity Tolerance, Functional Strength, Safety, Balance, Gait, Transfer, Bed Mobility, ROM Treatment/Plan Treatment Plan: Continue Plan of Care Treatment Plan: Bed Mobility, Education, Functional Activity Randall, Functional Strength, Gait, Safety, Therapeutic Exercise, Transfers Treatment Duration: Mar 22, 2017 Visits Per Week: 10-11 Minutes/Day (M-F): 15-30 Minutes/Day (Sat/Demarco): 15-30 Safety Risks/Education Patient Education: Gait Training, Transfer Techniques, Correct Positioning, Safety Issues Teaching Recipient: Patient Teaching Methods: Demonstration, Discussion Response to Teaching: Reinforcement Needed Time/GCodes Time In: 1530 Time Out: 1550 Total Billed Treatment Time: 20 Total Billed Treatment 1 visit GT 20' LETICIA MCCRARY PT Mar 15, 2017 15:55
[2017-03-15 16:55] VITALS: BP 118/76
[2017-03-15] MEDS: warFARin 2.5 MG (COUMADIN) TAB PO SCH (17:37)
[2017-03-15 19:41] VITALS: BP 127/78
[2017-03-15] MEDS: ENOXAPARIN 100 MG/1 ML (LOVENOX) SYR SC SCH (20:19)
[2017-03-15] MEDS: LOSARTAN 50 MG (COZAAR) TAB PO SCH (20:20)
[2017-03-15] MEDS: HYDROCHLOROTHIAZIDE 12.5 MG (HCTZ) CAP PO SCH (20:22)
[2017-03-15] MEDS: MONTELUKAST 10 MG (SINGULAIR) TAB PO SCH (20:23)
[2017-03-16 00:45] VITALS: BP 132/84
[2017-03-16] MEDS: morphine INJ 10 MG/ML 1ML (SYR OR VIAL) IVP PRN (00:55)
[2017-03-16] MEDS: RT-ALBUTEROL/IPRATROPIUM 3 ML (DUONEB) VIAL INH SCH ×6 (02:13→21:42)
[2017-03-16] MEDS: HYDROcodone/APAP 10 MG/325 MG (LORTAB) TAB PO PRN ×2 (03:42→08:32)
[2017-03-16 04:19] VITALS: BP 115/79
--- NOTE | 2017-03-16 05:32 | Progress Note (SOAP) ---
Subjective Time Seen by Provider: 05:30 Subjective/Events-last exam POD #2, s/p Left total knee Complain of left knee pain, and states that it was a very rough night Review of Systems General: No Chills Pulmonary: No Cough Cardiovascular: No: Chest Pain Gastrointestinal: Nausea, No: Vomiting Musculoskeletal: leg pain Neurological: No: Weakness Objective Exam Vital Signs Date Time Temp Pulse Resp B/P (MAP) Pulse Ox O2 Delivery O2 Flow Rate FiO2 03/16/17 04:19 97.5 91 19 115/79 93 Nasal Cannula 2.50 03/16/17 02:14 93 Nasal Cannula 2.50 03/16/17 00:45 98.9 97 20 132/84 97 Nasal Cannula 2.50 03/15/17 21:26 94 Nasal Cannula 2.50 03/15/17 19:41 96.2 92 20 127/78 94 Nasal Cannula 2.50 03/15/17 18:57 95 Nasal Cannula 2.50 03/15/17 16:55 98.0 93 20 118/76 94 Nasal Cannula 2.50 03/15/17 14:44 95 Nasal Cannula 2.50 03/15/17 12:00 100.4 107 20 115/70 93 Nasal Cannula 2.50 03/15/17 11:27 94 Nasal Cannula 2.50 03/15/17 08:00 94 Nasal Cannula 2.50 03/15/17 07:48 97.5 104 20 117/75 95 Nasal Cannula 2.50 03/15/17 06:35 96 Nasal Cannula 2.50 I & O 03/16/17 07:00 Intake Total 2600 ml Output Total 1050 ml Balance 1550 ml Capillary Refill : Less Than 3 Seconds General Appearance: No Apparent Distress Respiratory: No Respiratory Distress Cardiovascular: Normal Peripheral Pulses Gastrointestinal: non tender, soft Extremity: No Calf Tenderness Neurologic/Psychiatric: Alert, Oriented x3, No Motor/Sensory Deficits, Normal Mood/Affect Results Lab Laboratory Tests 03/15/17 06:25: White Blood Count 10.4, Red Blood Count 5.10, Hemoglobin 13.7, Hematocrit 42, Mean Corpuscular Volume 81, Mean Corpuscular Hemoglobin 27, Mean Corpuscular Hemoglobin Concent 33, Red Cell Distribution Width 14.2, Platelet Count 242, Mean Platelet Volume 11.1H, Prothrombin Time 16.0H, INR Comment 1.3, Sodium Level 137, Potassium Level 3.0L, Chloride Level 98, Carbon Dioxide Level 29, Anion Gap 10, Blood Urea Nitrogen 6L, Creatinine 0.70, Estimat Glomerular Filtration Rate > 60, BUN/Creatinine Ratio 9, Glucose Level 91, Calcium Level 9.8 Assessment/Plan Assessment/Plan Assess & Plan/Chief Complaint POD #2, s/p left TKA Atrial fibrillation mobilize DC planning Clinical Quality Measures DVT/VTE Risk/Contraindication: Risk Factor Score Per Nursin RFS Level Per Nursing on Admit: 3=High EUGENOI BHATT Mar 16, 2017 05:32
[2017-03-16 05:39] LABS: BASOPHILS % (AUTO) 0 % (0-10); EOSINOPHILS # (AUTO) 0.2 10^3/uL (0.0-0.3); EOSINOPHILS % (AUTO) 1 % (0-10); LYMPHOCYTES # (AUTO) 1.2 X 10^3 (1.0-4.0); LYMPHOCYTES % (AUTO) 10 % (12-44); MEAN CORPUSCULAR HEMOGLOBIN 27 PG (25-34); MEAN CORPUSCULAR HGB CONC 33 G/DL (32-36); MEAN CORPUSCULAR VOLUME 82 FL (80-99); MEAN PLATELET VOLUME 10.9 FL (7.4-10.4); MONOCYTES # (AUTO) 1.1 X 10^3 (0.0-1.0); MONOCYTES % (AUTO) 10 % (0-12); NEUTROPHILS # (AUTO) 9.2 X 10^3 (1.8-7.8); NEUTROPHILS % (AUTO) 79 % (42-75); PLATELET COUNT 223 10^3/uL (130-400); RED BLOOD COUNT 4.64 10^6/uL (4.35-5.85); RED CELL DISTRIBUTION WIDTH 14.1 % (10.0-14.5); WHITE BLOOD COUNT 11.6 10^3/uL (4.3-11.0)
[2017-03-16 05:54] LABS: PROTHROMBIN TIME PATIENT 22.3 SEC (12.2-14.7)
[2017-03-16 05:59] LABS: ALANINE AMINOTRANSFERASE 93 U/L (0-55); ALBUMIN 3.3 GM/DL (3.2-4.5); ANION GAP 7 MMOL/L (5-14); ASPARTATE AMINO TRANSFERASE 69 U/L (5-34); BILIRUBIN,TOTAL 0.8 MG/DL (0.1-1.0); BLOOD UREA NITROGEN 7 MG/DL (7-18); BUN/CREATININE RATIO 11 (0-20); CARBON DIOXIDE 31 MMOL/L (21-32); CHLORIDE 92 MMOL/L (98-107); CREATININE SERUM 0.63 MG/DL (0.60-1.30); GFR ESTIMATED > 60; GLUCOSE 117 MG/DL (70-105); HEMOLYSIS 5 (-100-29); ICTERUS 0.6 (-100-1.9); LIPEMIA -2 (-100-49); POTASSIUM 3.6 MMOL/L (3.6-5.0); SODIUM 130 MMOL/L (135-145); TOTAL PROTEIN 6.2 GM/DL (6.4-8.2)
[2017-03-16] MEDS: KCL 20 MEQ TAB (K-DUR) PO SCH ×2 (06:03→08:23)
[2017-03-16] MEDS: RT-ADVAIR HFA 115/21 MCG PER PUFF IH SCH ×2 (06:15→19:49)
--- NOTE | 2017-03-16 07:03 | Progress Note (SOAP) ---
Subjective Date Seen by Provider: Mar 16, 2017 Time Seen by Provider: 06:58 Subjective/Events-last exam She is doing well this AM. Currently no complaints. She has only ambulated 10ft with help from therapy. She states she is nervous about walking on her knee. She reports she only ambulated short distances prior to surgery. Pain was higher last night but has since been controlled with oral meds. Objective Exam Vital Signs Date Time Temp Pulse Resp B/P (MAP) Pulse Ox O2 Delivery O2 Flow Rate FiO2 03/16/17 06:16 94 Nasal Cannula 2.50 03/16/17 04:19 97.5 91 19 115/79 93 Nasal Cannula 2.50 03/16/17 02:14 93 Nasal Cannula 2.50 03/16/17 00:45 98.9 97 20 132/84 97 Nasal Cannula 2.50 03/15/17 21:26 94 Nasal Cannula 2.50 03/15/17 19:41 96.2 92 20 127/78 94 Nasal Cannula 2.50 03/15/17 18:57 95 Nasal Cannula 2.50 03/15/17 16:55 98.0 93 20 118/76 94 Nasal Cannula 2.50 03/15/17 14:44 95 Nasal Cannula 2.50 03/15/17 12:00 100.4 107 20 115/70 93 Nasal Cannula 2.50 03/15/17 11:27 94 Nasal Cannula 2.50 03/15/17 08:00 94 Nasal Cannula 2.50 03/15/17 07:48 97.5 104 20 117/75 95 Nasal Cannula 2.50 I & O 03/16/17 07:00 Intake Total 3600 ml Output Total 1550 ml Balance 2050 ml Capillary Refill : Less Than 3 Seconds General Appearance: No Apparent Distress Respiratory: No Accessory Muscle Use Cardiovascular: Normal Peripheral Pulses Gastrointestinal: non tender Extremity: Normal Capillary Refill, Normal Inspection, No Calf Tenderness, No Pedal Edema Neurologic/Psychiatric: Alert, Oriented x3, No Motor/Sensory Deficits, Normal Mood/Affect Skin: Normal Color, Warm/Dry (Dressing left knee CDI) Results Lab Laboratory Tests 03/16/17 05:30: White Blood Count 11.6H, Red Blood Count 4.64, Hemoglobin 12.5, Hematocrit 38, Mean Corpuscular Volume 82, Mean Corpuscular Hemoglobin 27, Mean Corpuscular Hemoglobin Concent 33, Red Cell Distribution Width 14.1, Platelet Count 223, Mean Platelet Volume 10.9H, Neutrophils (%) (Auto) 79H, Lymphocytes (%) (Auto) 10L, Monocytes (%) (Auto) 10, Eosinophils (%) (Auto) 1, Basophils (%) (Auto) 0, Neutrophils # (Auto) 9.2H, Lymphocytes # (Auto) 1.2, Monocytes # (Auto) 1.1H, Eosinophils # (Auto) 0.2, Basophils # (Auto) 0.0, Prothrombin Time 22.3H, INR Comment 2.0H, Sodium Level 130L, Potassium Level 3.6, Chloride Level 92L, Carbon Dioxide Level 31, Anion Gap 7, Blood Urea Nitrogen 7, Creatinine 0.63, Estimat Glomerular Filtration Rate > 60, BUN/Creatinine Ratio 11, Glucose Level 117H, Calcium Level 10.0, Total Bilirubin 0.8, Aspartate Amino Transf (AST/SGOT ) 69H, Alanine Aminotransferase (ALT/SGPT) 93H, Alkaline Phosphatase 109, Total Protein 6.2L, Albumin 3.3 Assessment/Plan Assessment/Plan Assess & Plan/Chief Complaint A: s/p left TKA Primary OA left knee hypokalema (resolved) hyponatremia COPD Atrial fibrillation P: 1800cc fluid restriction. decrease KCL to 20meq daily. Plan to DC tomorrow. I do not think she would be a great candidate for DC to home with [facility] due to her lack of mobility and poor effort. I discussed skilled with her at length today. She may potentially want to go to shelter at [place], [place]. Plan to DC there tomorrow. lawn maintenance worker to arrange Clinical Quality Measures DVT/VTE Risk/Contraindication: Risk Factor Score Per Nursin RFS Level Per Nursing on Admit: 3=High SHAWNEE GONSALES [employer]X DESIGN LEAD Mar 16, 2017 7:03 am
[2017-03-16] MEDS ORDERED: SENN-20 PO (07:09)
[2017-03-16] MEDS ORDERED: POTA20TA8 PO (07:09)
[2017-03-16] MEDS ORDERED: HYDR-3820 PO (07:09)
[2017-03-16 07:59] VITALS: BP 130/85
[2017-03-16] MEDS: SENNA W/DOCUSATE (SENOKOT S) TABLET PO SCH ×2 (08:24→20:21)
[2017-03-16] MEDS: DILTIAZEM 240 MG (CARDIZEM CD) CAP PO SCH (08:24)
--- NOTE | 2017-03-16 10:18 | Progress Note-Hospitalist ---
Progress Note HPI/CC on Admission CC: Medical management following knee surgery I assessed the patient with medical student and will focus on pain management, restarting Lovenox for bridge due to Coumadin therapy maintenance, adding scopolamine patch for chronic nausea and hemorrhoid cream for issues that she is having with bleeding hemorrhoids. Progress Notes/Assess & Plan Date Seen 03/16/17 Time Seen by Provider: 10:00 Admission Dx/Process Assessment: Status post uncomplicated left total knee replacement by Dr. Novak POD # 1 Acute hypokalemia Atrial fibrillation Anticoagulation for stroke prophylaxis due to atrial fibrillation Flareup of hemorrhoids Severe nausea Asthma Hypertension GERD Diagonsis/Assessment & Plan Chart Review: No fever Vitals stable WBC 11.6 Hgb 12.5 Na+ 130 AST/ALT elevated 69/93 INR 2.0 Will stop Lovenox injections since INR therapeutic rehab nursing tech: Lovenox was not given this morning. Cardizem was given. Nausea resolved Patient Interview: Pt's Na+ level was discussed and this implicates that she requires a fluid restriction. Pt was informed that this will help with her energy level and will aid recovery. Pt states that she has not been able to sleep well Pt has not yet eaten this morning. Physical exam stable. Lungs sound perfect Lovenox injections were stopped. Pt is glad that she will not receive these shots anymore. Pt was encouraged to use IS Pt believes that she will have a BM when she eats. Pt states that she uses a syringe when she needs to have a BM at home. I informed her that we will be able to accommodate that here. Having some itching and the pain medication seems to be over sedating her so nurse will touch base with orthopedics to evaluate their plan No fever, vital signs stable, much improved but drowsy Irregular rate and rhythm, clear to auscultation bilaterally No edema Laboratory Tests 03/16/17 05:30 Assessment: Status post uncomplicated left total knee replacement by Dr. Novak POD # 2 Acute hypokalemia Atrial fibrillation Anticoagulation for stroke prophylaxis due to atrial fibrillation now INR 2.0 so will stop Lovenox Flare-up of hemorrhoids Severe nausea Asthma Hypertension GERD Acute hyponatremia itching and oversedated due to pain meds? Plan: Replaced potassium Maintain home inhalers Monitor INR DC Lovenox bridge Pain control Scopolamine patch Anusol HC for hemorrhoid flare Hold Hydrochlorothiazide Fluid restriction due to hyponatremia of 1200cc/day Tepid water enema due to pelvic muscle dysfunction Continue IS Scribed by Angelia Cuadra under the direct supervision of Dr. Addison. FRANCHESCA ADIDSON DO Mar 16, 2017 10:18
--- NOTE | 2017-03-16 11:24 | Physical Therapy Daily Note ---
PT Daily Note-Current Subjective Patient states she is very sleepy and itchy. RN notified. Pain Numeric Pain Scale: 5-Moderate Pain Location: Left Location Body Site: Knee Pain Description: Acute Mental Status Patient Orientation: Normal For Age Attachments: Oxygen (5L) Transfers Functional [place] Measure 0=Not Assessed/NA 4=Minimal Assistance 1=Total Assistance 5=Supervision or Setup 2=Maximal Assistance 6=Modified [place] 3=Moderate Assistance 7=Complete IndependenceIRFPAI Quality Coding Scale 6 Independent with activity with or without an assistive device 5 Patient requires set up or clean up by helper. Patient completes activity by themselves 4 Supervision or touching assist (CGA). [place] provide cues , steadying assist 3 The helper provides less than half the effort to complete the activity 2 The helper provides more than half the effort to complete the activity 1 Dependent. The helper does all the effort to complete an activity 7 Patient refused to complete or attempt activity 9 The patient did not perform the activity before the current illness or injury 88 Not attempted due to Medical conditions or safety concerns Transfers (B, C, W/C) (FIM): 5 Scootin Rollin Supine to/from Sit: 5 Sit to/from Stand: 5 Weight Bearing Weight Bearing Restriction: Weight Bearing/Tolerated Location Restriction: L LE Gait Training Gait (FIM): 2 Distance (FIM): 9=804-76 ft (100') Distance: 100' Gait Level of Assist: 5 Gait Persons Needed: 1 Gait Assistive Device: FWW slow and antalgic with FWW; very lethargic and fatigues very quickly with activity Exercises Supine Ex: Ankle pumps, Quad Set, Heel Slides, Straight leg raise Supine Reps: 10 Seated Therapy Exercises: Ankle pumps, Long arc quads Seated Reps: 15 Assessment Bilateral LE exercises to improve ROM and strengthening to improve ambulation and functional mobility to return to home with spouse and home health PT. Patient states she is transferring to another hospital in [place] for continued care. PT [place] Goals Skilled Nursing Goals PT Skilled Nursing Goals Time Frame: Mar 22, 2017 Transfers (B,C,W/C) (FIM): 5 Gait (FIM): 2 Distance: 50' Gait Level of Assist: 4 Gait Assistive Device: FWW PT Plan Treatment/Plan Treatment Plan: Continue Plan of Care Treatment Plan: Bed Mobility, Education, Functional Activity [place], Functional Strength, Gait, Safety, Therapeutic Exercise, Transfers Treatment Duration: Mar 22, 2017 Visits Per Week: 10-11 Minutes/Day (M-F): 15-30 Minutes/Day (Sat/Demarco): 15-30 Time/GCodes Time In: 1020 Time Out: 1050 Total Billed Treatment Time: 30 Total Billed Treatment 1 visit GT 15 min EX 15 min SIRENA EUCEDA PT Mar 16, 2017 11:24
[2017-03-16 11:34] VITALS: BP 132/80
[2017-03-16] MEDS ORDERED: oxyCODONE/APAP 5/325MG (PERCOCET 5) TABLET PO PRN (12:00)
[2017-03-16] MEDS ORDERED: LORATADINE (CLARITIN) 10 MG TAB ONE (13:31)
--- OUTSIDE RECORDS SUMMARY | 2017-03-16 14:12 | XMS REPORT ---
Author Author Jennifer Reyes [facility] Address [address] [place], [place] [id number] Care Team Providers Care Laborer Livestock Name Role Phone Jennifer Reyes PCP [phone] Jennifer Reyes PreferredProvider [phone] Allergies and Adverse Reactions Name Reaction Notes Celestone codeine sulfate ciprofloxacin Betadine Plan of Treatment Not available. Medications Active Name Start Date Estimated Completion Date SIG Comments Symbicort 160-4.5 mcg/actuation inhalation HFA aerosol inhaler inhale 2 puffs by inhalation route 2 times per day in the morning and evening montelukast 10 mg oral tablet take 1 tablet (10 mg) by oral route once daily in the evening warfarin 2.5 mg oral tablet take 1 tablet by oral route daily on S,M,T, T,and F losartan-hydrochlorothiazide 50-12.5 mg oral tablet 11/22/2016 05/21/2017 take 1 tablet by oral route once daily for 90 days Combivent Respimat 20-100 mcg/actuation inhalation mist 11/22/2016 05/21/2017 inhale 1 puff by inhalation route 2 times a day ; may take additional puffs as needed not to exceed 6 for 30 days Matzim LA 240 mg oral tablet extended release 24 hr 11/22/2016 05/21/2017 take 1 tablet (240 mg) by oral route once daily for 90 days ipratropium-albuterol 0.5 mg-3 mg(2.5 mg base)/3 mL inhalation solution for nebulization 01/26/2017 10/23/2017 use in nebulizer as directed q 4 hrs as needed for sob Problem List Description Status Onset Anticoagulant long-term use Active 11/22/2016 HTN (hypertension), benign Active 11/22/2016 Hypercholesteremia Active 11/22/2016 COPD (chronic obstructive pulmonary disease) with emphysema Active 11/22/2016 Atrial fibrillation Active 11/22/2016 Vital Signs Date Time BP-Sys(mm[Hg] BP-Kaylene(mm[Hg]) HR(bpm) RR(rpm) Temp WT HT HC BMI BSA BMI Percentile O2 Sat(%) 11/22/2016 10:17:00 AM 148 mmHg 98 mmHg 112 bpm 22 rpm 97.8 F 193.125 lbs 66 in 31.17 kg/m2 2.02 m2 90 % Social History Name Description Comments Tobacco Former smoker quit in 1983 after 26 years of smoking Alcohol Never Caffeine Current every day 1 per day History of Procedures Date Ordered Description Order Status 11/22/2016 12:00 AM TD VACCINE NO PRSRV 7/> IM Reviewed 11/22/2016 12:00 AM COMPLETE CBC W/AUTO DIFF WBC Reviewed 11/22/2016 12:00 AM COMPREHEN METABOLIC PANEL Reviewed 11/22/2016 12:00 AM LIPID PANEL Reviewed 11/22/2016 12:00 AM TDAP VACCINE 7 YRS/> IM Reviewed 11/22/2016 12:00 AM ASSAY OF MAGNESIUM Reviewed 11/22/2016 12:00 AM ROUTINE VENIPUNCTURE Reviewed Results Summary Data and Description Results 11/22/2016 11:00 AM WBC 11.4 RBC 5.83 HGB 15.90 g/dLHCT 47.60 %MCV 82.0 fLMCH 27.30 pgMCHC 33.40 g/dLRDW SD 42 RDW CV 14.20 %MPV 11.50 fLPLT 331 NRBC# 0.00 NRBC% 0.0 %NEUT 78.40 %%LYMP 14.70 %%MONO 4.70 %%EOS 1.60 %%BASO 0.30 %#NEUT 8.92 #LYMP 1.67 #MONO 0.54 #EOS 0.18 #BASO 0.03 MANUAL DIFF NOT IND GLUCOSE 111.0 mg/dLSODIUM 135.0 mmol/LPOTASSIUM 3.90 mmol/LCHLORIDE 99.0 mmol/LCO2 27.0 mmol/LBUN 11.0 mg/dLCREATININE 0.80 mg/dLSGOT/AST 17.0 IU/LSGPT/ALT 16.0 IU/ LALK PHOS 94.0 IU/LTOTAL PROTEIN 6.70 g/dLALBUMIN 4.0 g/dLTOTAL BILI 0.50 mg/ dLCALCIUM 10.20 mg/dLAGE 71 GFR NonAA 71 GFR AA 86 eGFR >60 mL/min/1.73meGFR AA* >60 TRIGLYCERIDES 87.0 mg/dLCHOLESTEROL 205.0 mg/dLHDL 52.0 mg/dLTOT CHOL/ HDL 3.9 LDL (CALC) 136.0 mg/dLMAGNESIUM 2.20 mg/dL History Of Immunizations Name Date Admin Mfg Name Mfg Code Trade Name Lot# Route Inj Vis Given Vis Pub CVX Td 11/22/2016 GlaxoSmithKline SKB BOOSTRIX [id number] Intramuscular Left Deltoid 11/22/2016 11/18/2014 113 Tdap 11/22/2016 GlaxoSmithK[employer] SKB BOOSTRIX [id number] Intramuscular Left Lower Thigh 11/22/2016 11/18/2014 115 History of Past Illness Name Date of Onset Comments Asthma Arthritis Headache GERD Hemorrhoids Heart problem Numbness and Tingling Anticoagulant long-term use 11/22/2016 HTN (hypertension), benign 11/22/2016 Hypercholesteremia 11/22/2016 COPD (chronic obstructive pulmonary disease) with emphysema 11/22/2016 Atrial fibrillation 11/22/2016 Abrasion forearm Nov 22 2016 10:20AM Atrial fibrillation Nov 22 2016 10:20AM COPD (chronic obstructive pulmonary disease) with emphysema Nov 22 2016 10: 20AM Hypercholesteremia Nov 22 2016 10:20AM HTN (hypertension), benign Nov 22 2016 10:20AM Anticoagulant long-term use Nov 22 2016 10:20AM Immunization deficiency Nov 22 2016 10:20AM Payers Insurance Name Company Name Plan Name Plan Number Policy Number Policy Group Number Start Date Medicare Part B Medicare Of [place] [id number] N/A BCBS [facility] [id number] N/A History of Encounters Visit Date Visit Type Provider 11/22/2016 Office visit Jennifer Reyes APRN
--- OUTSIDE RECORDS SUMMARY | 2017-03-16 14:12 | XMS REPORT | Continuity of Care Document ---
Author Author [facility] Organization [facility] Address Unknown Phone Unavailable Allergies Active Description Code Type Severity Reaction Onset Reported/Identified Relationship to Patient Clinical Status Yes EMIL Inhibitors [id number] Drug Allergy Mild N/A 04/16/2015 Yes betamethasone [id number] Drug Allergy Moderate HIGH B/P 03/08/2017 Yes povidone-iodine [id number] Drug Allergy Moderate RASH 03/08/2017 Yes prednisone [id number] Drug Allergy Moderate HIGH B/P, HEADA 03/08/2017 Yes soap [id number] Drug Allergy Moderate RASH 03/08/2017 Yes STEROIDS STEROIDS Moderate HEADACHE 03/08/2017 Yes ciprofloxacin [id number] Drug Allergy Mild N/A 03/08/2017 Yes codeine [id number] Drug Allergy Mild N/A 03/08/2017 Medications Problems Date Dx Coded Attending Type Code Diagnosis Diagnosed By 03/05/2015 WENDY HARVEY DO Ot 327.26 SLEEP RELATED HYPOVENTILATION/HYPOXEMIA 03/05/2015 WENDY HARVEY DO Ot 496 CHR AIRWAY OBSTRUCT NEC 04/15/2015 WENDY HARVEY DO Ot 278.00 OBESITY, NOS 04/15/2015 WENDY HARVEY DO Ot 401.9 HYPERTENSION NOS 04/15/2015 WENDY HARVEY DO Ot 427.31 ATRIAL FIBRILLATION 04/15/2015 WENDY HARVEY DO Ot 496 CHR AIRWAY OBSTRUCT NEC 04/15/2015 WENDY HARVEY DO Ot 780.54 HYPERSOMNIA, UNSPECIFIED 04/15/2015 WENDY HARVEY DO Ot 786.09 RESPIRATORY ABNORM NEC 04/15/2015 WENDY HARVEY DO Ot 799.02 HYPOXEMIA 04/16/2015 WENDY HARVEY DO Ot 278.00 04/16/2015 WENDY HARVEY DO Ot 401.9 04/16/2015 WENDY HARVEY DO Ot 427.31 04/16/2015 WENDY HARVEY DO Ot 496 04/16/2015 WENDY HARVEY DO Ot 780.54 04/16/2015 WENDY HARVEY DO Ot 786.09 04/16/2015 WENDY HARVEY DO Ot 799.02 04/16/2015 CÉSAR GILL Ot 455.6 HEMORRHOIDS NOS 04/16/2015 CÉSAR GILL Ot 569.3 RECTAL ANAL HEMORRHAGE 04/16/2015 CÉSAR GILL Ot V58.61 ANTICOAGULANTS,LT,CURRENT USE 04/17/2015 WENDY HARVEY DO Ot 427.31 04/17/2015 WENDY HARVEY DO Ot 496 04/17/2015 WENDY HARVEY DO Ot 780.54 04/17/2015 WENDY HARVEY DO Ot 799.02 04/29/2015 WENDY HARVEY DO Ot 427.31 04/29/2015 WENDY HARVEY DO Ot 496 04/29/2015 WENDY HARVEY DO Ot 780.54 04/29/2015 WENDY HARVEY DO Ot 799.02 06/24/2015 WENDY HARVEY DO Ot 278.00 OBESITY, NOS 06/24/2015 WENDY HARVEY DO Ot 401.9 HYPERTENSION NOS 06/24/2015 WENDY HARVEY DO Ot 427.31 ATRIAL FIBRILLATION 06/24/2015 WENDY HARVEY DO Ot 496 CHR AIRWAY OBSTRUCT NEC 06/24/2015 WENDY HARVEY DO Ot 780.54 HYPERSOMNIA, UNSPECIFIED 06/24/2015 WENDY HARVEY DO Ot 799.02 HYPOXEMIA 07/22/2015 KIRAN LUDWIG APRN Ot G47.10 07/22/2015 KIRAN ULDWIG APRN Ot I48.91 07/22/2015 KIRAN LUDWIG APRN Ot J44.9 07/22/2015 KIRAN LUDWIG APRN Ot R91.1 07/28/2015 KIRAN LUDWIG APRN Ot G47.10 07/28/2015 KIRAN LUDWIG APRN Ot I48.91 07/28/2015 KIRAN LUDWIG APRN Ot J44.9 07/28/2015 KIRAN LUDWIG APRN Ot R91.1 09/02/2015 ANNMARIE CHEUNG Ot N28.9 09/14/2015 ANNMARIE CHEUNGP Ot N28.9 04/25/2016 WENDY HARVEY DO Ot R06.09 OTHER FORMS OF DYSPNEA 04/26/2016 ANNMARIE CHEUNG Ot I10 ESSENTIAL (PRIMARY) HYPERTENSION 04/26/2016 ANNMARIE CHEUNGP Ot N28.9 DISORDER OF KIDNEY AND URETER, UNSPECIFI 04/26/2016 WENDY HARVEY DO Ot E66.9 OBESITY, UNSPECIFIED 04/26/2016 WENDY HARVEY DO Ot J44.9 CHRONIC OBSTRUCTIVE PULMONARY DISEASE, U 04/26/2016 WENDY HARVEY DO Ot R06.00 DYSPNEA, UNSPECIFIED 04/26/2016 WENDY HARVEY DO Ot R09.02 HYPOXEMIA 04/27/2016 WENDY HARVEY DO Ot E66.9 OBESITY, UNSPECIFIED 04/27/2016 WENDY HARVEY DO Ot J44.9 CHRONIC OBSTRUCTIVE PULMONARY DISEASE, U 04/27/2016 WENDY HARVEY DO Ot R06.00 DYSPNEA, UNSPECIFIED 04/27/2016 WENDY HARVEY DO M Ot R09.02 HYPOXEMIA 05/04/2016 ANNMARIE CHEUNG DRIVER WHEELCHAIR Ot I10 ESSENTIAL (PRIMARY) HYPERTENSION 05/04/2016 ANNMARIE CHEUNGP Ot N28.9 DISORDER OF KIDNEY AND URETER, UNSPECIFI 05/20/2016 WENDY HARVEY DO Ot E66.9 OBESITY, UNSPECIFIED 05/20/2016 WENDY HARVEY DO Ot J44.9 CHRONIC OBSTRUCTIVE PULMONARY DISEASE, U 05/20/2016 WENDY HARVEY DO M Ot R06.00 DYSPNEA, UNSPECIFIED 05/20/2016 WENDY HARVEY DO M Ot R09.02 HYPOXEMIA 05/20/2016 ANNMARIE CHEUNG DRIVER WHEELCHAIR Ot I10 ESSENTIAL (PRIMARY) HYPERTENSION 05/20/2016 ANNMARIE CHEUNG Ot N28.9 DISORDER OF KIDNEY AND URETER, UNSPECIFI 05/26/2016 WENDY HARVEY DO M Ot E66.9 OBESITY, UNSPECIFIED 05/26/2016 WENDY HARVEY DO Ot J44.9 CHRONIC OBSTRUCTIVE PULMONARY DISEASE, U 05/26/2016 WENDY HARVEY DO Ot R06.00 DYSPNEA, UNSPECIFIED 05/26/2016 WENDY HARVEY DO Ot R09.02 HYPOXEMIA 05/26/2016 ANNMARIE CHEUNG DRIVER WHEELCHAIR Ot I10 ESSENTIAL (PRIMARY) HYPERTENSION 05/26/2016 ANNMARIE CEHUNG DRIVER WHEELCHAIR Ot N28.9 DISORDER OF KIDNEY AND URETER, UNSPECIFI 03/08/2017 DEFANTONIOMONY LIU MAHMOOD Ot 625.8 FEM GENITAL SYMPTOMS NEC 03/08/2017 WENDY HARVEY DO Ot 427.31 ATRIAL FIBRILLATION 03/08/2017 WENDY HARVEY DO Ot 496 CHR AIRWAY OBSTRUCT NEC 03/08/2017 WENDY HARVEY DO Ot 780.54 HYPERSOMNIA, UNSPECIFIED 03/08/2017 WENDY HARVEY DO Ot 799.02 HYPOXEMIA 03/08/2017 KIRAN LUWDIG APRN Ot G47.10 HYPERSOMNIA, UNSPECIFIED 03/08/2017 KIRAN LUDWIG APRN Ot I48.91 UNSPECIFIED ATRIAL FIBRILLATION 03/08/2017 KIRAN LUDWIG APRN Ot J44.9 CHRONIC OBSTRUCTIVE PULMONARY DISEASE , U 03/08/2017 KIRAN LUDWIG LANDMEN Ot R91.1 SOLITARY PULMONARY NODULE 03/08/2017 WENDY HARVEY DO Ot 278.00 OBESITY, NOS 03/08/2017 WENDY HARVEY DO Ot 401.9 HYPERTENSION NOS 03/08/2017 WENDY HARVEY DO Ot 427.31 ATRIAL FIBRILLATION 03/08/2017 WENDY HARVEY DO Ot 496 CHR AIRWAY OBSTRUCT NEC 03/08/2017 WENDY HARVEY DO Ot 780.54 HYPERSOMNIA, UNSPECIFIED 03/08/2017 WENDY HARVEY DO Ot 786.09 RESPIRATORY ABNORM NEC 03/08/2017 WENDY HARVEY DO Ot 799.02 HYPOXEMIA 03/08/2017 WENDY HARVEY DO Ot 278.00 03/08/2017 WENDY HARVEY DO Ot 401.9 03/08/2017 WENDY HARVEY DO Ot 427.31 03/08/2017 WENDY HARVEY DO Ot 496 03/08/2017 WENDY HARVEY DO Ot 780.54 03/08/2017 WENDY HARVEY DO Ot 799.02 03/08/2017 MAXEMAANNMARIE DRIVER WHEELCHAIR Ot N28.9 DISORDER OF KIDNEY AND URETER, UNSPECIFI 03/08/2017 WENDY HARVEY DO Ot E66.9 OBESITY, UNSPECIFIED 03/08/2017 WENDY HARVEY DO Ot J44.9 CHRONIC OBSTRUCTIVE PULMONARY DISEASE, U 03/08/2017 WENDY HARVEY DO Ot R06.00 DYSPNEA, UNSPECIFIED 03/08/2017 WENDY HARVEY DO Ot R09.02 HYPOXEMIA 03/08/2017 ANNMARIE CHEUNG DRIVER WHEELCHAIR Ot I10 ESSENTIAL (PRIMARY) HYPERTENSION 03/08/2017 ANNMARIE CHEUNG DRIVER WHEELCHAIR Ot N28.9 DISORDER OF KIDNEY AND URETER, UNSPECIFI 03/08/2017 WENDY HARVEY DO Ot 278.00 OBESITY, NOS 03/08/2017 WENDY HARVEY DO Ot 401.9 HYPERTENSION NOS 03/08/2017 WENDY HARVEY DO Ot 427.31 ATRIAL FIBRILLATION 03/08/2017 WENDY HARVEY DO Ot 496 CHR AIRWAY OBSTRUCT NEC 03/08/2017 WENDY HARVEY DO Ot 780.54 HYPERSOMNIA, UNSPECIFIED 03/08/2017 WENDY HARVEY DO Ot 786.09 RESPIRATORY ABNORM NEC 03/08/2017 WENDY HARVEY DO Ot 799.02 HYPOXEMIA 03/08/2017 WENDY HARVEY DO Ot 278.00 03/08/2017 WENDY HARVEY DO Ot 401.9 03/08/2017 WENDY HARVEY DO Ot 427.31 03/08/2017 WENDY HARVEY DO Ot 496 03/08/2017 WENDY HARVEY DO Ot 780.54 03/08/2017 WENDY HARVEY DO Ot 799.02 03/08/2017 JAIRO HERNANDEZ DO Ot M79.662 PAIN IN LEFT LOWER LEG 03/08/2017 WENDY HARVEY DO Ot 278.00 OBESITY, NOS 03/08/2017 WENDY HARVEY DO Ot 401.9 HYPERTENSION NOS 03/08/2017 WENDY HARVEY DO Ot 427.31 ATRIAL FIBRILLATION 03/08/2017 WENDY HARVEY DO Ot 496 CHR AIRWAY OBSTRUCT NEC 03/08/2017 WENDY HARVEY DO Ot 780.54 HYPERSOMNIA, UNSPECIFIED 03/08/2017 WENDY HARVEY DO Ot 786.09 RESPIRATORY ABNORM NEC 03/08/2017 WENDY HARVEY DO Ot 799.02 HYPOXEMIA 03/08/2017 WENDY HARVEY DO Ot 278.00 03/08/2017 WENDY HARVEY DO Ot 401.9 03/08/2017 WENDY HARVEY DO Ot 427.31 03/08/2017 WENDY HARVEY DO Ot 496 03/08/2017 WENDY HARVEY DO Ot 780.54 03/08/2017 WENDY HARVEY DO Ot 799.02 03/08/2017 JAIRO HERNANDEZ DO Ot M79.662 PAIN IN LEFT LOWER LEG 03/08/2017 MARY MAHMOOD JAIRO Dasilva Marcial M79.662 PAIN IN LEFT LOWER LEG Procedures Results Test Result Range Complete blood count (CBC) with automated white blood cell (WBC) differential - 03/08/17 11:10 Blood leukocytes automated count (number/volume) 11.2 10*3/ uL 4.3-11.0 Blood erythrocytes automated count (number/volume) 5.79 10*6 /uL 4.35-5.85 Venous blood hemoglobin measurement (mass/volume) 15.4 g/dL 11.5-16.0 Blood hematocrit (volume fraction) 46 % 35-52 Automated erythrocyte mean corpuscular volume 80 [foz_us] 80-99 Automated erythrocyte mean corpuscular hemoglobin (mass per erythrocyte) 27 pg 25-34 Automated erythrocyte mean corpuscular hemoglobin concentration measurement ( mass/volume) 33 g/dL 32-36 Automated erythrocyte distribution width ratio 14.6 % 10.0-14.5 Automated blood platelet count (count/volume) 312 10*3/uL 130-400 Automated blood platelet mean volume measurement 11.1 [foz_ us] 7.4-10.4 Automated blood neutrophils/100 leukocytes 78 % 42-75 Automated blood lymphocytes/100 leukocytes 12 % 12-44 Blood monocytes/100 leukocytes 7 % 0-12 Automated blood eosinophils/100 leukocytes 2 % 0-10 Automated blood basophils/100 leukocytes 0 % 0-10 Blood neutrophils automated count (number/volume) 8.8 10*3 1.8-7.8 Blood lymphocytes automated count (number/volume) 1.3 10*3 1.0-4.0 Blood monocytes automated count (number/volume) 0.8 10*3 0.0-1.0 Automated eosinophil count 0.3 10*3/uL 0.0-0.3 Automated blood basophil count (count/volume) 0.0 10*3/uL 0.0-0.1 Complete urinalysis with reflex to culture - 03/08/17 11:10 Urine color determination YELLOW NRG Urine clarity determination SLIGHTLY CLOUDY NRG Urine pH measurement by test strip 6.5 5 -9 Specific gravity of urine by test strip 1.010 1.016-1.022 Urine protein assay by test strip, semi-quantitative NEGATIVE NEGATIVE Urine glucose detection by automated test strip NEGATIVE NEGATIVE Erythrocytes detection in urine sediment by light microscopy 2+ NEGATIVE Urine ketones detection by automated test strip NEGATIVE NEGATIVE Urine nitrite detection by test strip NEGATIVE NEGATIVE Urine total bilirubin detection by test strip NEGATIVE NEGATIVE Urine urobilinogen measurement by automated test strip (mass/volume) NORMAL NORMAL Urine leukocyte esterase detection by dipstick 1+ NEGATIVE Automated urine sediment erythrocyte count by microscopy (number/high power field) [HPF] NRG Automated urine sediment leukocyte count by microscopy (number/high power field ) RARE NRG Bacteria detection in urine sediment by light microscopy NEGATIVE NRG Squamous epithelial cells detection in urine sediment by light microscopy 2-5 NRG Crystals detection in urine sediment by light microscopy NONE NRG Casts detection in urine sediment by light microscopy NONE NRG Mucus detection in urine sediment by light microscopy NEGATIVE NRG Complete urinalysis with reflex to culture NO NRG PT panel in platelet poor plasma by coagulation assay - 03/08/17 11:10 Prothrombin time (PT) in platelet poor plasma by coagulation assay 28.9 s 12.2-14.7 INR in platelet poor plasma or blood by coagulation assay 2.7 0.8-1.4 Whole blood basic metabolic panel - 03/08/17 11:10 Serum or plasma sodium measurement (moles/volume) 135 mmol/ L 135-145 Serum or plasma potassium measurement (moles/volume) 3.6 mmol/L 3.6-5.0 Serum or plasma chloride measurement (moles/volume) 98 mmol/ L 98-107 Carbon dioxide 25 mmol/L 21-32 Serum or plasma anion gap determination (moles/volume) 12 mmol/L 5-14 Serum or plasma urea nitrogen measurement (mass/volume) 11 mg/dL 7-18 Serum or plasma creatinine measurement (mass/volume) 0.72 mg /dL 0.60-1.30 Serum or plasma urea nitrogen/creatinine mass ratio 15 0-20 Serum or plasma creatinine measurement with calculation of estimated glomerular filtration rate > NRG Serum or plasma glucose measurement (mass/volume) 112 mg/dL 70-105 Serum or plasma calcium measurement (mass/volume) 10.2 mg/ dL 8.5-10.1 Blood type T Indirect antibody screen panel - 03/08/17 11:10 ABO+Rh group BP NRG Blood group antibody screen NEGATIVE NRG Methicillin resistant Staphylococcus aureus (MRSA) screening culture - 11:15 Methicillin resistant Staphylococcus aureus (MRSA) screening culture NEG NRG Blood type T Indirect antibody screen panel - 03/14/17 06:30 ABO+Rh group BP NRG Transfusion band number [id number] NRG Blood group antibody screen NEGATIVE NRG PT panel in platelet poor plasma by coagulation assay - 03/14/17 07:00 Prothrombin time (PT) in platelet poor plasma by coagulation assay 13.5 s 12.2-14.7 INR in platelet poor plasma or blood by coagulation assay 1.1 0.8-1.4 Automated blood complete blood count (hemogram) panel - 03/15/17 06:25 Blood leukocytes automated count (number/volume) 10.4 10*3/ uL 4.3-11.0 Blood erythrocytes automated count (number/volume) 5.10 10*6 /uL 4.35-5.85 Venous blood hemoglobin measurement (mass/volume) 13.7 g/dL 11.5-16.0 Blood hematocrit (volume fraction) 42 % 35-52 Automated erythrocyte mean corpuscular volume 81 [foz_us] 80-99 Automated erythrocyte mean corpuscular hemoglobin (mass per erythrocyte) 27 pg 25-34 Automated erythrocyte mean corpuscular hemoglobin concentration measurement ( mass/volume) 33 g/dL 32-36 Automated erythrocyte distribution width ratio 14.2 % 10.0-14.5 Automated blood platelet count (count/volume) 242 10*3/uL 130-400 Automated blood platelet mean volume measurement 11.1 [foz_ us] 7.4-10.4 PT panel in platelet poor plasma by coagulation assay - 03/15/17 06:25 Prothrombin time (PT) in platelet poor plasma by coagulation assay 16.0 s 12.2-14.7 INR in platelet poor plasma or blood by coagulation assay 1.3 0.8-1.4 Whole blood basic metabolic panel - 03/15/17 06:25 Serum or plasma sodium measurement (moles/volume) 137 mmol/ L 135-145 Serum or plasma potassium measurement (moles/volume) 3.0 mmol/L 3.6-5.0 Serum or plasma chloride measurement (moles/volume) 98 mmol/ L 98-107 Carbon dioxide 29 mmol/L 21-32 Serum or plasma anion gap determination (moles/volume) 10 mmol/L 5-14 Serum or plasma urea nitrogen measurement (mass/volume) 6 mg /dL 7-18 Serum or plasma creatinine measurement (mass/volume) 0.70 mg /dL 0.60-1.30 Serum or plasma urea nitrogen/creatinine mass ratio 9 0-20 Serum or plasma creatinine measurement with calculation of estimated glomerular filtration rate > NRG Serum or plasma glucose measurement (mass/volume) 91 mg/dL 70-105 Serum or plasma calcium measurement (mass/volume) 9.8 mg/dL 8.5-10.1 Encounters ACCT No. Visit Date/Time Discharge Status Pt. Type Provider Facility Loc./Unit Complaint [id number] 03/08/2017 10:03:00 2016 15:22:00 DIS Outpatient JAIRO HERNANDEZ DO [facility] PREOP PRIMARY OSTEOARTHRITIS [id number] 08/11/2015 11:56:00 2014 23:59:59 CLS Outpatient ANNMARIE CHEUNG [facility] RAD RIGHT RENAL NODULE [id number] 07/02/2015 15:09:00 2014 23:59:59 CLS Outpatient KIRAN LUDWIG APRN [facility] RAD COPD,LUNG NODULE [id number] 06/25/2015 00:49:00 2014 23:59:59 CLS Preadmit WENDY HARVEY DO [facility] PULM COPD [id number] 06/16/2015 09:00:00 2014 00:01:00 DIS Outpatient WENDY HARVEY DO [facility] PULM COPD [id number] 04/16/2015 15:00:00 2014 23:59:59 CLS Preadmit WENDY HARVEY DO [facility] PULM DYSPNEA [id number] 04/16/2015 20:15:00 2014 22:16:00 DIS Emergency DAVID CUI CÉSAR Lauryn [facility] ER RECTAL BLEED [id number] 04/14/2015 09:00:00 2014 00:01:00 DIS Outpatient WENDY HARVEY DO [facility] PULM DYSPNEA [id number] 03/23/2015 16:15:00 2014 23:59:59 CLS Outpatient WENDY HARVEY DO [facility] RAD COPD,HYPOXIA,DYSPNEA [id number] 03/04/2015 20:10:00 2014 06:50:00 DIS Outpatient WENDY HARVEY DO [facility] SLEEP SNORING,EXCESSIVE DAYTIME SLEEPINESS [id number] 06/25/2014 15:00:00 2013 23:59:59 CLS Outpatient DEFFENMONY MAHMOOD LIU D [facility] RAD PELVIC MASS [id number] 04/27/2017 10:15:00 PEN Preadmit WENDY HARVEY DO [facility] RAD COPD [id number] 03/14/2017 05:51:00 ACT Inpatient JAIRO HERNANDEZ DO [facility] 4TH PRIMARY OSTEOARTHRITIS [id number] 04/25/2016 10:09:00 ACT Outpatient WENDY HARVEY DO [facility] RAD COPD,DYSPNEA,HYPOXIC,OBESITY [id number] 04/25/2016 10:04:00 ACT Outpatient ANNMARIE CHEUNG [facility] 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
--- NOTE | 2017-03-16 14:43 | Physical Therapy Daily Note ---
PT Daily Note-Current Subjective Patient agrees to PT. Pain Numeric Pain Scale: 5-Moderate Pain Location: Left Location Body Site: Knee Pain Description: Acute Mental Status Patient Orientation: Normal For Age Attachments: Oxygen Transfers Functional [place] Measure 0=Not Assessed/NA 4=Minimal Assistance 1=Total Assistance 5=Supervision or Setup 2=Maximal Assistance 6=Modified [place] 3=Moderate Assistance 7=Complete IndependenceIRFPAI Quality Coding Scale 6 Independent with activity with or without an assistive device 5 Patient requires set up or clean up by helper. Patient completes activity by themselves 4 Supervision or touching assist (CGA). [place] provide cues , steadying assist 3 The helper provides less than half the effort to complete the activity 2 The helper provides more than half the effort to complete the activity 1 Dependent. The helper does all the effort to complete an activity 7 Patient refused to complete or attempt activity 9 The patient did not perform the activity before the current illness or injury 88 Not attempted due to Medical conditions or safety concerns Transfers (B, C, W/C) (FIM): 5 Scootin Rollin Supine to/from Sit: 5 Sit to/from Stand: 5 Gait Training Gait (FIM): 1 Distance (FIM): 1=up to 49 ft Distance: 25'x2 Gait Level of Assist: 5 Gait Assistive Device: FWW slow and antalgic Exercises Supine Ex: Ankle pumps, Quad Set, Heel Slides, Short Arc Quads, Straight leg raise Supine Reps: 10 (x 2 sets AAROM) Assessment Patient progressing with treatment plan. Exercises utilized to increase strength of left LE to improve functional mobility. PT Longterm Goals [place] Table Assembler Goals PT Longterm Goals Time Frame: Mar 22, 2017 Transfers (B,C,W/C) (FIM): 5 Gait (FIM): 2 Distance: 50' Gait Level of Assist: 4 Gait Assistive Device: FWW PT Plan Treatment/Plan Treatment Plan: Continue Plan of Care Treatment Plan: Bed Mobility, Education, Functional Activity Randall, Functional Strength, Gait, Safety, Therapeutic Exercise, Transfers Treatment Duration: Mar 22, 2017 Visits Per Week: 10-11 Minutes/Day (M-F): 15-30 Minutes/Day (Sat/Demarco): 15-30 Time/GCodes Time In: 1410 Time Out: 1430 Total Billed Treatment Time: 25 Total Billed Treatment 1 visit EX 15 min GT 10 min SIRENA EUCEDA PT Mar 16, 2017 14:43
[2017-03-16 16:00] VITALS: BP 121/76
[2017-03-16] MEDS: warFARin 2.5 MG (COUMADIN) TAB PO SCH (19:58)
[2017-03-16 20:00] VITALS: BP 133/67
[2017-03-16] MEDS ORDERED: ENOXAPARIN 100 MG/1 ML (LOVENOX) SYR SC SCH (20:00)
[2017-03-16] MEDS: LOSARTAN 50 MG (COZAAR) TAB PO SCH (20:21)
[2017-03-16] MEDS: MONTELUKAST 10 MG (SINGULAIR) TAB PO SCH (20:21)
[2017-03-16] MEDS: LORATADINE (CLARITIN) 10 MG TAB PO SCH (20:22)
[2017-03-17] MEDS: SIMETHICONE 80 MG (MYLICON) CHEW PO PRN (00:27)
[2017-03-17 00:29] VITALS: BP 130/78
[2017-03-17] MEDS: RT-ALBUTEROL/IPRATROPIUM 3 ML (DUONEB) VIAL INH SCH ×3 (02:00→10:04)
[2017-03-17 03:57] VITALS: BP 129/74
[2017-03-17 05:44] LABS: BASOPHILS % (AUTO) 0 % (0-10); EOSINOPHILS # (AUTO) 0.2 10^3/uL (0.0-0.3); EOSINOPHILS % (AUTO) 1 % (0-10); LYMPHOCYTES # (AUTO) 1.1 X 10^3 (1.0-4.0); LYMPHOCYTES % (AUTO) 8 % (12-44); MEAN CORPUSCULAR HEMOGLOBIN 27 PG (25-34); MEAN CORPUSCULAR HGB CONC 34 G/DL (32-36); MEAN CORPUSCULAR VOLUME 81 FL (80-99); MONOCYTES # (AUTO) 1.1 X 10^3 (0.0-1.0); MONOCYTES % (AUTO) 8 % (0-12); NEUTROPHILS # (AUTO) 12.1 X 10^3 (1.8-7.8); NEUTROPHILS % (AUTO) 83 % (42-75); PLATELET COUNT 261 10^3/uL (130-400); RED BLOOD COUNT 4.56 10^6/uL (4.35-5.85); RED CELL DISTRIBUTION WIDTH 13.9 % (10.0-14.5); WHITE BLOOD COUNT 14.5 10^3/uL (4.3-11.0)
[2017-03-17 05:50] LABS: INR 2.3 (0.8-1.4); PROTHROMBIN TIME PATIENT 24.7 SEC (12.2-14.7)
[2017-03-17 06:03] LABS: ALANINE AMINOTRANSFERASE 72 U/L (0-55); ALBUMIN 3.3 GM/DL (3.2-4.5); ANION GAP 12 MMOL/L (5-14); ANISOCYTOSIS SLIGHT; ASPARTATE AMINO TRANSFERASE 42 U/L (5-34); BAND NEUTROPHILS 1 %; BASOPHILS % (MANUAL) 0 %; BILIRUBIN,TOTAL 0.6 MG/DL (0.1-1.0); BLOOD UREA NITROGEN 11 MG/DL (7-18); BUN/CREATININE RATIO 18 (0-20); CALCIUM 10.1 MG/DL (8.5-10.1); CARBON DIOXIDE 26 MMOL/L (21-32); CHLORIDE 95 MMOL/L (98-107); CREATININE SERUM 0.62 MG/DL (0.60-1.30); EOSINOPHILS % (MANUAL) 1 %; GFR ESTIMATED > 60; GLUCOSE 113 MG/DL (70-105); HEMOLYSIS 8 (-100-29); ICTERUS 0.6 (-100-1.9); LIPEMIA 0 (-100-49); LYMPHOCYTES % (MANUAL) 3 %; NEUTROPHILS % (MANUAL) 88 %; POTASSIUM 3.7 MMOL/L (3.6-5.0); REACTIVE LYMPHOCYTES 3 %; ROULEAUX SLIGHT; SODIUM 133 MMOL/L (135-145); TOTAL PROTEIN 6.1 GM/DL (6.4-8.2)
[2017-03-17] MEDS: KCL 20 MEQ TAB (K-DUR) PO SCH (06:24)
[2017-03-17] MEDS: ACETAMINOPHEN 325 MG TABLET/CAPLET (TYLENOL) PO PRN ×2 (06:25→12:15)
[2017-03-17] MEDS: RT-ADVAIR HFA 115/21 MCG PER PUFF IH SCH (06:38)
[2017-03-17] MEDS ORDERED: OXYC-471 PO (06:39)
--- NOTE | 2017-03-17 06:47 | Discharge Inst-Skilled Nursing ---
Discharge Inst-Skilled NF Patient Instructions Patient Problems: Primary OA left knee s/p left total knee arthroplasty COPD hypokalemia (resolved) hyponatremia debility Goal: establish independence with ADLs Patient Instructions: please see Dr. Novak's TKA DC instructions polar care unit to knee as needed WBAT with walker remove danna and apply steri strips on 03/23 may shower with incision uncovered then reapply new island dressing daily physical therapy to assist with ambulation and treat ROM CPM machine start at 0-60 and increase 10 degrees per day, use CPM 6 hrs per day Continue bilateral ADRIAN hose resume home meds home dose of coumadin for DVT prophylaxis Consult/Follow Up/Orders Follow Up Appt.: f/u with DR. Novak in 2-3 weeks Skilled NF Admit to: [facility] half-way Certification (SNF) I certify that SNF services are required to be given on an inpatient basis because of the above named patient's need for half-way care on a continuing basis for the conditions(s) for which he/she was receiving inpatient hospital services prior to his/her transfer to the SNF. Half-Way Facility Order: Nursing Services, Physical Therapy-Evaluate & Treat Discharge Diet: No Restrictions, Other Diet (1600cc fluid restrictions per day) Daily Activity as Tolerated: Yes New & Resume Previous Orders New & Resume Previous Orders please see Dr. Novak's TKA DC instructions polar care unit to knee as needed WBAT with walker remove danna and apply steri strips on 03/23 shower with incision uncovered then reapply new island dressing daily physical therapy to assist with ambulation and treat ROM CPM machine start at 0-60 and increase 10 degrees per day, use CPM 6 hrs per day Continue bilateral ADRIAN hose resume home meds home dose of coumadin for DVT prophylaxis Other Instructions o2 per NC as needed resume all home meds CBC, CMP, PT/INR on 03/20 and 03/23 Shawnee Gonsales Mar 17, 2017 06:40 SHAWNEE GONSALES APRN Mar 17, 2017 6:47 am
--- NOTE | 2017-03-17 07:06 | Progress Note (SOAP) ---
Subjective Date Seen by Provider: Mar 17, 2017 Time Seen by Provider: 07:04 Subjective/Events-last exam No complaints. Feels like she finally got some sleep last night. Pain controlled , Denies N/V. Denies fever/chills. Objective Exam Vital Signs Date Time Temp Pulse Resp B/P (MAP) Pulse Ox O2 Delivery O2 Flow Rate FiO2 03/17/17 06:38 97 Nasal Cannula 5.00 03/17/17 03:57 98.7 93 19 129/74 91 Nasal Cannula 2.50 03/17/17 02:00 95 Nasal Cannula 5.00 03/17/17 00:29 99.3 94 19 130/78 97 Nasal Cannula 2.50 03/16/17 21:42 96 Nasal Cannula 5.00 03/16/17 20:20 Nasal Cannula 2.50 03/16/17 20:00 100.4 103 22 133/67 95 Nasal Cannula 2.50 03/16/17 19:33 93 Nasal Cannula 5.00 03/16/17 16:00 97.8 99 20 121/76 95 Nasal Cannula 2.50 03/16/17 14:41 94 Nasal Cannula 5.00 03/16/17 11:34 97.5 101 20 132/80 92 Nasal Cannula 2.50 03/16/17 10:24 75 Room Air 03/16/17 08:00 Nasal Cannula 2.50 03/16/17 07:59 96.6 94 20 130/85 93 Nasal Cannula 2.50 I & O 03/17/17 07:00 Intake Total 800 ml Output Total 2650 ml Balance -1850 ml Capillary Refill : Less Than 3 Seconds General Appearance: No Apparent Distress HEENT: PERRL/EOMI Respiratory: No Accessory Muscle Use Cardiovascular: Irregularly Irregular Peripheral Pulses: 2+ Left Dors-Pedis (L) Gastrointestinal: non tender, soft Extremity: Normal Capillary Refill, Normal Inspection, Non Tender, No Calf Tenderness, No Pedal Edema Neurologic/Psychiatric: Alert, Oriented x3, No Motor/Sensory Deficits, Normal Mood/Affect Skin: Normal Color, Warm/Dry (dressing to left knee CDI) Results Lab Laboratory Tests 03/17/17 05:27: White Blood Count 14.5H, Red Blood Count 4.56, Hemoglobin 12.4, Hematocrit 37, Mean Corpuscular Volume 81, Mean Corpuscular Hemoglobin 27, Mean Corpuscular Hemoglobin Concent 34, Red Cell Distribution Width 13.9, Platelet Count 261, Mean Platelet Volume 11.0H, Neutrophils (%) (Auto) 83H, Lymphocytes (%) (Auto) 8L, Monocytes (%) (Auto) 8, Eosinophils (%) (Auto) 1, Basophils (%) (Auto) 0, Neutrophils # (Auto) 12.1H, Lymphocytes # (Auto) 1.1, Monocytes # (Auto) 1.1H, Eosinophils # (Auto) 0.2, Basophils # (Auto) 0.0, Neutrophils % (Manual) 88, Lymphocytes % (Manual) 3, Monocytes % (Manual) 4, Eosinophils % (Manual) 1, Basophils % (Manual) 0, Band Neutrophils 1, Reactive Lymphocytes 3, Anisocytosis SLIGHT, Rouleau SLIGHT, Prothrombin Time 24.7H, INR Comment 2.3H, Sodium Level 133L, Potassium Level 3.7, Chloride Level 95L, Carbon Dioxide Level 26, Anion Gap 12, Blood Urea Nitrogen 11, Creatinine 0.62, Estimat Glomerular Filtration Rate > 60, BUN/Creatinine Ratio 18, Glucose Level 113H, Calcium Level 10.1, Total Bilirubin 0.6, Aspartate Amino Transf (AST/SGOT) 42H, Alanine Aminotransferase (ALT/SGPT) 72H, Alkaline Phosphatase 106, Total Protein 6.1L, Albumin 3.3 Assessment/Plan Assessment/Plan Assess & Plan/Chief Complaint A: s/p left TKA Primary OA left knee hypokalema (resolved) hyponatremia (improving) COPD Atrial fibrillation [facility] Clinical Quality Measures DVT/VTE Risk/Contraindication: Risk Factor Score Per Nursin RFS Level Per Nursing on Admit: 3=High SHAWNEE GONSALES STRATEGIC ACCOUNTS MANAGER Mar 17, 2017 7:06 am
[2017-03-17] MEDS: SENNA W/DOCUSATE (SENOKOT S) TABLET PO SCH (08:35)
[2017-03-17] MEDS: DILTIAZEM 240 MG (CARDIZEM CD) CAP PO SCH (08:35)
[2017-03-17] MEDS: LORATADINE (CLARITIN) 10 MG TAB PO SCH (08:35)
[2017-03-17 09:00] VITALS: BP 124/85
--- NOTE | 2017-03-17 09:33 | Physical Therapy Daily Note ---
PT Daily Note-Current Subjective Pt had just turned to R side for laying upon arrival. Pt reports pain in R knee and hip this morning. Pt agrees to Supine Ex in bed since waiting for Dr Addison to see if pt will discharge to [place] today. Pain Numeric Pain Scale: 7 Location: Right Location Body Site: Knee Pain Description: Throbbing, Tightness Comment: Pt reports pain in R hip and knee that throbs. Mental Status Patient Orientation: Person, Place, Time, Situation Attachments: Oxygen (5L) Transfers Functional [place] Measure 0=Not Assessed/NA 4=Minimal Assistance 1=Total Assistance 5=Supervision or Setup 2=Maximal Assistance 6=Modified [place] 3=Moderate Assistance 7=Complete IndependenceIRFPAI Quality Coding Scale 6 Independent with activity with or without an assistive device 5 Patient requires set up or clean up by helper. Patient completes activity by themselves 4 Supervision or touching assist (CGA). Watson provide cues , steadying assist 3 The helper provides less than half the effort to complete the activity 2 The helper provides more than half the effort to complete the activity 1 Dependent. The helper does all the effort to complete an activity 7 Patient refused to complete or attempt activity 9 The patient did not perform the activity before the current illness or injury 88 Not attempted due to Medical conditions or safety concerns Rollin Exercises Supine Ex: Ankle pumps, Rolling (For positioning purposes), Heel Slides, Hip abd/add Supine Reps: 15 Treatments Pt reports should discharge today but waiting for okay from Dr Addison and wanted to do a little Ex to help with stiffness if discharge to [place] facility. Pt completes Supine Ex. PT and pt also go over pt ed. items such as how polar pack works, benefits to continuing to work harder with Therapy at new facility and walking to progress and get stronger as well as proper positioning to prevent contractures. Assessment Current Status: Fair Progress Pt is motivated to get better and get home. Pt is a little nervous and protective of going home too soon. PT Manager Control Goals Mcfp Goals PT Manager Control Goals Time Frame: Mar 22, 2017 Transfers (B,C,W/C) (FIM): 5 Gait (FIM): 2 Distance: 50' Gait Level of Assist: 4 Gait Assistive Device: FWW PT Plan Problem List Problem List: Activity Tolerance, Functional Strength, Safety, Balance, Gait, Transfer, Bed Mobility, ROM Treatment/Plan Treatment Plan: Continue Plan of Care Treatment Plan: Bed Mobility, Education, Functional Activity Randall, Functional Strength, Gait, Safety, Therapeutic Exercise, Transfers Treatment Duration: Mar 22, 2017 Visits Per Week: 10-11 Minutes/Day (M-F): 15-30 Minutes/Day (Sat/Demarco): 15-30 Safety Risks/Education Patient Education: Transfer Techniques, Reviewed Use of Ice, Correct Positioning, Safety Issues Teaching Recipient: Patient Teaching Methods: Discussion Response to Teaching: Verbalize Understanding Time/GCodes Time In: 815 Time Out: 845 Total Billed Treatment Time: 30 Total Billed Treatment visit, FA (15m) & EX (15m) JHONNY WILLIS PTA Mar 17, 2017 09:33
--- NOTE | 2017-03-17 10:06 | Progress Note-Hospitalist ---
Progress Note HPI/CC on Admission CC: Medical management following knee surgery I assessed the patient with medical student and will focus on pain management, restarting Lovenox for bridge due to Coumadin therapy maintenance, adding scopolamine patch for chronic nausea and hemorrhoid cream for issues that she is having with bleeding hemorrhoids. Progress Notes/Assess & Plan Date Seen 03/17/17 Time Seen by Provider: 09:30 Admission Dx/Process Assessment: Status post uncomplicated left total knee replacement by Dr. Novak POD # 1 Acute hypokalemia Atrial fibrillation Anticoagulation for stroke prophylaxis due to atrial fibrillation Flareup of hemorrhoids Severe nausea Asthma Hypertension GERD Diagonsis/Assessment & Plan Chart Review: No fever Vitals stable Na+ 133 AST/ALT 42/72 improved WBC 14 Hgb stable INR 2.3 Patient Interview: Pt states that she slept last night. She slept on her side. Labwork was discussed and it looks good Pt was informed that there is still a hold Hydrochlorothiazide because of Na+ level and she will continue fluid restriction for a few more days. Pt was given stool softeners but has not had any BMs. Pt states that she has not been eating much. Physical exam stable. Pt asked if she should continue the shots. She was advised to hold off, but keep them at home if she needs them. Pt admits to feeling a bit of panic this morning. Pt was encouraged to ambulate Pt would like to continue Fleets enema No fever, vital signs stable, much improved Irregular rate and rhythm, clear to auscultation bilaterally No edema Laboratory Tests 03/17/17 05:27 Assessment: Status post uncomplicated left total knee replacement by Dr. Novak POD # 3 Slow recovery requiring skilled therapy prior to DC home Acute hypokalemia Atrial fibrillation Anticoagulation for stroke prophylaxis due to atrial fibrillation now INR 2.0 so stopped Lovenox 2 days ago and now 2.3 Flare-up of hemorrhoids Severe nausea Asthma Hypertension GERD Acute hyponatremia resolving since DC HCTZ Plan: Continue IS Encourage ambulation Continue BM meds and Fleets enema Scribed by Angelia Cuadra under the direct supervision of Dr. Addison. FRANCHESCA ADDISON DO Mar 17, 2017 10:06
[2017-03-18] MEDS ORDERED: SCOPOLAMINE PATCH REMOVAL TP SCH (10:29)
--- NOTE | 2017-03-18 11:02 | DISCHARGE SUMMARY ---
DATE OF SERVICE: DATE OF DISCHARGE: 03/17/2017 ADMITTING DIAGNOSES: 1. Primary osteoarthritis left knee. 2. Chronic obstructive pulmonary disease. 3. Chronic atrial fibrillation. DISCHARGE DIAGNOSES: 1. Primary osteoarthritis, left knee. 2. Status post left total knee arthroplasty. 3. Chronic atrial fibrillation. 4. Chronic obstructive pulmonary disease. 5. Hypokalemia (resolved). 6. Hyponatremia (improving) PROCEDURES: Left total knee arthroplasty on the date admission. CONSULTS: Samanhta Addison DO Internal Medicine. SUPERVISING PHYSICIAN AND ADMITTING PHYSICIAN: Apollo Novak DO HISTORY OF PRESENT ILLNESS AND HOSPITAL COURSE: The patient was seen in the clinical setting with diagnosis severe primary osteoarthritis of the left knee with varus deformity. The patient has failed conservative treatment inform of the intraarticular cortisone injection, nonsteroid antinflammatory as well as rehab program. On the day of the admission, the patient was taken to operating room the left total knee arthroplasty is preformed under a spinal anesthesia with the femoral nerve block. The patient surgical procedure was performed and was uneventful. On postoperative day #1 the patient was awake, alert and oriented. She had complaints of mild to moderate pain as well as mild to moderate nausea. The patient vital signs were stable she was afebrile. The patient laboratory revealed a potassium of 3.0 and INR that was non therapeutic at 1.1. The patient is maintained on deep venous thrombosis prophylaxis with the combination of Lovenox 90 mg subcutaneously daily as well as resuming of home orders of Coumadin. The patient also had SCDs and ADRIAN hose. The patient also remained on IV antibiotic prophylaxis in the form of Ancef. The patient was started 20 mg of KCL b.i.d. for the hypokalemia. Dr. Samantha Addison was consulted for management of internal medicine. On postoperative day #2 the patient was doing fairly well. She has had some issues with her pain medications and therefore, her hydrocodone was discontinued and changed to Percocet pain medication. The patient vital signs were stable she was afebrile. The patient potassium had increased to 3.6 and the sodium had dropped to 130. The patient was put on a 1200 mL fluid restriction. The patient INR was up to 1.3. On examination the patient's dressing was clean, dry and intact about the left knee. The patient has full motor function of the lower extremity. She had a negative Laura signs. The left lower extremity is neurovascularly intact. On postoperative day #3, the patient was doing well. She had no complaint she was much better with the Percocet type pain medication. Her vital signs were stable she was afebrile. She denied nausea and vomiting. On examination of the left lower extremity was neurovascularly intact with the negative Laura signs. The dressing about the left knee was clean, dry and intact as well. LABORATORY RESULTS: Reveals: Hemoglobin 12.4, sodium that had improved to 133 and potassium stable at 3.7. The patient INR therapeutic at 2.32. Discharge instruction reviewed with the patient by myself on the date of discharge she verbalizes understanding of the instruction. The patient was discharge to a custodial facility on postoperative day #3. DISPOSITION: Discharged to custodial facility ([facility]) DISCHARGE INSTRUCTION: 1. She is going to resume all her regular home medications. 2. She is going to continue weight bearing as tolerated using a walker for assistance. 3. She is going to continue intermittent elevation of the left lower extremity as well as the calf pumping exercises to prevent DVT. 4. She is going to continue the PolarCare Unit as needed for pain and swelling. 5. She is going to continue the CPA machine. 6. She is going to continue the bilateral ADRIAN hose. 7. She may remove dressing. She may shower daily. She is to tap the incision dry and replace with new hylon dressing. 8. Remove danna and apply Steri Strips on postoperative day #10. 9. Daily physical therapy to assist the pandiculation and deep range of motion. The patient to have follow up CBC, BMP and PT INR on 03/20/2017 and 03/23/2017. DISCHARGE PRESCRIPTION: 1. Percocet 5/325 mg 1 to 2 tablets p.o. q. 6 hours p.r.n. pain # 90 with zero refills. 2. KCL 20 mEq one p.o. daily with zero refills. 3. Docusate sodium 100 mg one p.o., b.i.d., #60 with zero refills. The patient is going to follow up with Dr. Novak in two and half weeks and she is going to follow up with her family practitioner as directed by Samantha Addison. Job ID: [id number] DocumentID: [id number] Dictated Date: 03/17/2017 07:16:48 Pump Oiler Date: 03/17/2017 13:16:02 Dictated By: SHAWNEE GONSALES APRN
== END 2017-03-17 12:15 | disposition swing bed (61) | DRG 470 ==
LOC: 4TH 05:51 → SURG 05:52 → ENPENDDIS 11:00 → 4TH 13:09 → EDPENDDISTM 03-17 10:00 → EDPENDDISDT 03-17 10:00
PROVIDERS: ADMIT Orthopaedic Surgery; ATTEND Orthopaedic Surgery
PROC: 0SRD0J9 Replacement of Left Knee Joint with Synthetic Substitute, Cemented, Open Approach (ICD-10-PCS; principal; 2017-03-14 09:48)
DX: M17.12 Unilateral primary osteoarthritis, left knee (principal); E87.1 Hypo-osmolality and hyponatremia; Z87.891 Personal history of nicotine dependence; I48.2 Chronic atrial fibrillation; J45.909 Unspecified asthma, uncomplicated; K21.9 Gastro-esophageal reflux disease without esophagitis; E87.6 Hypokalemia; Z79.4 Long term (current) use of insulin; I10 Essential (primary) hypertension; K64.9 Unspecified hemorrhoids; J44.9 Chronic obstructive pulmonary disease, unspecified
CPT/HCPCS: 36415; 73560; 80048; 80053; 85007; 85025; 85027; 85610; 94640; 94664; 94760

== ENCOUNTER → 2017-04-27 | Outpatient (CLI) | payer MEDICARE ==
[~2017-04-27] MED LIST changes: +ACET-93 PO; +ENOX100D4 INJ; +HYDR-3820 PO; +OXYC-471 PO; +POTA20TA8 PO; +SENN-20 PO; +WARF2.5T82 PO
--- NOTE | 2017-04-27 17:31 | Diagnostic Imaging Report ---
PROCEDURE: CT chest without contrast. TECHNIQUE: Multiple contiguous axial images were obtained through the chest without the use of intravenous contrast. INDICATION: COPD. FINDINGS: Advanced emphysema changes are seen worse in the upper lobes. There is an irregular nodule in the right middle lobe measuring 8 mm along the minor fissure. When compared to 04/25/2016 and 2014 exams, it demonstrates no significant change. Mild scarring in the inferior lingula is seen. There is no significant consolidation or mass. The heart size is normal. No pericardial or pleural effusion. There is no mediastinal mass. No significantly enlarged lymph node in the mediastinum or axilla. The hilar vessels are not opacified with no obvious hilar region mass seen. The thoracic aorta is normal in caliber. Sections in the upper abdomen demonstrate no definite abnormality. The osseous structures appear unremarkable. IMPRESSION: 1. Advanced emphysema. 2. An 8 mm stable nodule along the minor fissure from 2014 is compatible with a scar. Dictated by: Dictated on workstation # [id number]
== END ==
LOC: RAD 10:12
PROVIDERS: ATTEND Internal Medicine Critical Care Medicine
DX: J44.9 Chronic obstructive pulmonary disease, unspecified (principal); R06.00 Dyspnea, unspecified; R09.02 Hypoxemia; E66.9 Obesity, unspecified
CPT/HCPCS: 71250

== ENCOUNTER 2017-07-04 08:43 | Outpatient (CLI) | payer MEDICARE ==
[~2017-07-04] VITALS: Ht 167.6 cm; Wt 84.1 kg
[2017-07-04 08:53] VITALS: BP 145/72
[2017-07-04 09:42] LABS: BASOPHILS % (AUTO) 0 % (0-10); EOSINOPHILS # (AUTO) 0.3 10^3/uL (0.0-0.3); EOSINOPHILS % (AUTO) 3 % (0-10); LYMPHOCYTES # (AUTO) 1.4 X 10^3 (1.0-4.0); LYMPHOCYTES % (AUTO) 15 % (12-44); MEAN CORPUSCULAR HEMOGLOBIN 27 PG (25-34); MEAN CORPUSCULAR HGB CONC 34 G/DL (32-36); MEAN CORPUSCULAR VOLUME 80 FL (80-99); MEAN PLATELET VOLUME 11.4 FL (7.4-10.4); MONOCYTES # (AUTO) 0.6 X 10^3 (0.0-1.0); MONOCYTES % (AUTO) 7 % (0-12); NEUTROPHILS # (AUTO) 6.8 X 10^3 (1.8-7.8); NEUTROPHILS % (AUTO) 75 % (42-75); PLATELET COUNT 297 10^3/uL (130-400); RED BLOOD COUNT 5.77 10^6/uL (4.35-5.85); RED CELL DISTRIBUTION WIDTH 14.6 % (10.0-14.5); WHITE BLOOD COUNT 9.1 10^3/uL (4.3-11.0)
[2017-07-04 09:42] LABS: BILIRUBIN,URINE NEGATIVE (NEGATIVE); KETONES,URINE NEGATIVE (NEGATIVE); LEUKOCYTE ESTERASE ,URINE 1+ (NEGATIVE); NITRITE,URINE NEGATIVE (NEGATIVE); PH,URINE 5 (5-9); PROTEIN,URINE NEGATIVE (NEGATIVE); UROBILINOGEN,URINE NORMAL (NORMAL)
[2017-07-04] MEDS ORDERED: IPRA3AMP IH (09:42)
[2017-07-04] MEDS ORDERED: CYCL10TA9 PO (09:46)
[2017-07-04] MEDS ORDERED: HYOS-20 PO (09:46)
[2017-07-04] MEDS ORDERED: FAMO10TA43 PO (09:46)
[2017-07-04 09:52] LABS: WBC,URINE RARE /HPF
[2017-07-04 10:01] LABS: ANION GAP 9 MMOL/L (5-14); BLOOD UREA NITROGEN 13 MG/DL (7-18); BUN/CREATININE RATIO 19; CALCIUM 10.5 MG/DL (8.5-10.1); CARBON DIOXIDE 27 MMOL/L (21-32); CHLORIDE 101 MMOL/L (98-107); GFR ESTIMATED > 60; GLUCOSE 103 MG/DL (70-105); POTASSIUM 3.6 MMOL/L (3.6-5.0); SODIUM 137 MMOL/L (135-145)
[2017-07-04 10:06] LABS: INR 1.8 (0.8-1.4); PROTHROMBIN TIME PATIENT 20.5 SEC (12.2-14.7)
== END 2017-07-04 09:30 | disposition home or self-care (01) ==
LOC: PREOP 08:43
PROVIDERS: ATTEND Orthopaedic Surgery
DX: Z01.812 Encounter for preprocedural laboratory examination (principal); M17.11 Unilateral primary osteoarthritis, right knee
CPT/HCPCS: 36415; 80048; 81000; 85025; 85610; 86850; 86900; 86901; 87081

== ENCOUNTER 2017-07-11 05:53 | Inpatient (IN) | payer MEDICARE ==
[~2017-07-11] VITALS: Ht 167.6 cm; Wt 84.1 kg
[~2017-07-11 05:53] MED LIST changes: +FAMO10TA43 PO; +HYOS-20 PO; +IPRA3AMP IH
[2017-07-11] MEDS ORDERED: GABAPENTIN 600 MG (NEURONTIN) TAB PO ONE (06:15)
[2017-07-11] MEDS ORDERED: CELECOXIB 100 MG (CeleBREX) CAP PO ONE (06:15)
[2017-07-11] MEDS ORDERED: ceFAZolin 2 GM/50 ML NS 50 ML IV ONE (06:15)
[2017-07-11] MEDS ORDERED: DEXAMETHASONE 4 MG/ML SDV (DECADRON) IV ONE (06:15)
[2017-07-11] MEDS ORDERED: ONDANSETRON 4 MG/2 ML (SDV) Z0FRAN IVP ONE (06:15)
[2017-07-11] MEDS: LACTATED RINGERS 1,000 ML IV PRN ×2 (06:30→10:42)
[2017-07-11 06:42] LABS: INR 1.2 (0.8-1.4); PROTHROMBIN TIME PATIENT 15.3 SEC (12.2-14.7)
[2017-07-11] MEDS ORDERED: GENTAMICIN 40 MG/ML 2 ML INJ SDV ONE (06:46)
[2017-07-11] MEDS ORDERED: MIDAZOLAM 2 MG/2 ML (VERSED) VIAL ONE ×2 (06:49→08:13)
[2017-07-11] MEDS ORDERED: NEO/POLY/BAC (NEOSPORIN) OINT 15 GM TUBE ONE (06:56)
--- OUTSIDE RECORDS SUMMARY | 2017-07-11 07:18 | XMS REPORT ---
Author Author Jennifer Reyes [facility] Address [address] [place], [place] [id number] Care Team Providers Care Community Youth Secretary Name Role Phone Jennifer Reyes PCP [phone] Jennifer Reyes PreferredProvider [phone] Allergies and Adverse Reactions Name Reaction Notes Celestone codeine sulfate ciprofloxacin Betadine Plan of Treatment Not available. Medications Active Name Start Date Estimated Completion Date SIG Comments Symbicort 160-4.5 mcg/actuation inhalation HFA aerosol inhaler inhale 2 puffs by inhalation route 2 times per day in the morning and evening warfarin 2.5 mg oral tablet take [...] not to exceed 6 for 30 days ipratropium-albuterol 0.5 mg-3 mg(2.5 mg base)/3 mL inhalation solution for nebulization 01/26/2017 10/23/2017 use in nebulizer as directed q 4 hrs as needed for sob montelukast 10 mg oral tablet 02/16/2017 take 1 tablet (10 mg) by oral route once daily in the evening Pepcid oral as needed daily Matzim LA 240 mg oral tablet extended release 24 hr 04/18/2017 10/15/2017 take 1 tablet (240 mg) by oral route once daily for 90 days Problem List Description Status Onset Anticoagulant long-term use Active 11/22/2016 HTN (hypertension), benign Active 11/22/2016 Hypercholesteremia Active 11/22/2016 COPD (chronic obstructive pulmonary disease) with emphysema Active 11/22/2016 Atrial fibrillation Active 11/22/2016 Vital Signs Date Time BP-Sys(mm[Hg] BP-Kaylene(mm[Hg]) HR(bpm) RR(rpm) Temp WT HT HC BMI BSA BMI Percentile O2 Sat(%) 04/18/2017 3:04:00 PM 134 mmHg 78 mmHg 92 bpm 18 rpm 98.5 F 185 lbs 66 in 29.86 kg/m2 1.98 m2 93 % 11/22/2016 10:17:00 AM 148 mmHg 98 mmHg 112 bpm 22 rpm 97.8 F 193.125 lbs 66 in 31.1709 kg/m 2.0197 m 90 % Social History Name Description Comments [...] Reviewed 11/22/2016 12:00 AM ROUTINE VENIPUNCTURE Reviewed 04/18/2017 12:00 AM COMPLETE CBC W/AUTO DIFF WBC Returned 04/18/2017 12:00 AM COMPREHEN METABOLIC PANEL Returned 04/18/2017 12:00 AM ASSAY OF MAGNESIUM Returned 04/18/2017 12:00 AM ROUTINE VENIPUNCTURE Reviewed Results Summary Date and Description Results 11/22/2016 11:00 AM WBC [...] 10:20AM Immunization deficiency Nov 22 2016 10:20AM Mixed simple and mucopurulent chronic bronchitis Apr 18 2017 3:06PM Hypertension, Benign Essential Apr 18 2017 3:06PM retirement use of anticoagulants Apr 18 2017 3:06PM Hypoxemia Apr 18 2017 3:06PM Payers Insurance Name Company Name Plan Name Plan Number Policy Number Policy Group Number Start Date Medicare Part B [employer] [place] [id number] N/A BCBS [facility] [id number] N/A History of Encounters Visit Date Visit Type Provider 04/18/2017 Office visit Jennifer Reyes APRN 11/22/2016 Office visit Jennifer Reyes LAPEL PADDER
[2017-07-11] MEDS ORDERED: fentaNYL INJECTION 100 MCG/2 ML AMP ONE (07:22)
[2017-07-11 07:25] VITALS: BP 131/105
--- NOTE | 2017-07-11 07:57 | Progress Note-Pre Operative ---
Pre-Operative Progress Note H&P Reviewed The H&P was reviewed, patient examined and no changes noted. Date Seen by Provider: Jul 11, 2017 Time Seen by Provider: 07:45 Date H&P Reviewed: Jul 11, 2017 Time H&P Reviewed: 07:45 Pre-Operative Diagnosis: Primary osteoarthritis right knee JAIRO HERNANDEZ DO Jul 11, 2017 7:57 am
[2017-07-11] MEDS ORDERED: SIMETHICONE 80 MG (MYLICON) CHEW PO PRN (08:00)
[2017-07-11] MEDS ORDERED: BISACODYL 10 MG SUPP (DULCOLAX) PR PRN (08:00)
[2017-07-11] MEDS ORDERED: PROMETHAZINE INJ 25 MG/ML (PHENERGAN) AMP IVP PRN (08:00)
[2017-07-11] MEDS ORDERED: MORPHINE INJ ONE ×5 (08:00)
[2017-07-11] MEDS ORDERED: CYCLOBENZAPRINE 10 MG (FLEXERIL) TAB PO PRN (08:00)
[2017-07-11] MEDS ORDERED: HYOSCYAMINE 0.125 MG (LEVSIN) TAB PO PRN (08:00)
[2017-07-11] MEDS ORDERED: FAMOTIDINE 20 MG (PEPCID) TABLET PO PRN (08:00)
[2017-07-11] MEDS ORDERED: [UNRECOGNIZED DRUG - OTHER] INJ ONE ×5 (08:00)
[2017-07-11] MEDS ORDERED: ROPIVACAINE INJ ONE ×5 (08:00)
[2017-07-11] MEDS ORDERED: KETOROLAC INJ ONE ×5 (08:00)
[2017-07-11] MEDS ORDERED: morphine INJ 10 MG/ML 1ML (SYR OR VIAL) IVP PRN ×2 (08:00→10:45)
[2017-07-11] MEDS ORDERED: ALBUTEROL/IPRATROP (COMBIVENT RESPIMAT) 4 GM INHALER IH PRN (08:00)
[2017-07-11] MEDS ORDERED: RT-ALBUTEROL/IPRATROPIUM 3 ML (DUONEB) VIAL IH SCH (08:00)
[2017-07-11] MEDS ORDERED: NS IV 500 ML 500 ML IV ONE (08:15)
[2017-07-11] MEDS ORDERED: TRANEXAMIC ACID 100 MG/ML 10 ML INJECTION IV ONE (08:20)
[2017-07-11] MEDS ORDERED: ROPIVACAINE 5MG/ML 30ML VIAL ONE (08:20)
[2017-07-11] MEDS ORDERED: PROPOFOL INJECTION 50 ML IV ONE (08:36)
[2017-07-11] MEDS ORDERED: INTRA-ARTICULAR INJ ONE ×4 (09:15)
[2017-07-11] MEDS ORDERED: LACTATED RINGERS 1,000 ML IV ONE (10:31)
--- NOTE | 2017-07-11 10:42 | Progress Note-Post Operative ---
Post-Operative Progess Note Surgeon (s)/Escrow Officer (s) Surgeon JAIRO HERNANDEZ DO Escrow Officer: Jorge Beauchamp PART TIME-Yanci Pre-Operative Diagnosis Primary osteoarthritis right knee Post-Operative Diagnosis same Procedure & Operative Findings Date of Procedure 07/11/17 Procedure Performed/Findings Right total knee arthroplasty Anesthesia Type SAB with femoral nerve block Estimated Blood Loss Estimated blood loss (mL): 150 ml Specimens/Packing Specimens Removed none JAIRO HERNANDEZ DO Jul 11, 2017 10:42 am
[2017-07-11] MEDS ORDERED: ONDANSETRON 4 MG/2 ML (SDV) Z0FRAN IVP PRN (10:45)
[2017-07-11] MEDS ORDERED: MEPERIDINE (DEMEROL) INJ 50 MG/ML IVP PRN (10:45)
--- NOTE | 2017-07-11 11:13 | Diagnostic Imaging Report ---
2 views of the right knee. Indication: post total knee arthroplasty Findings: There is femoral and tibial prosthesis with patellar resurfacing and prosthesis seen. Anterior soft tissue post-operative changes are noted with anterior skin danna seen. Impression: Baseline post right total knee arthroplasty in good alignment. Dictated by: Dictated on workstation # [id number]
[2017-07-11 11:35] VITALS: BP 129/91
[2017-07-11] MEDS: ONDANSETRON 4 MG/2 ML (SDV) Z0FRAN IVP PRN ×2 (13:09→17:01)
[2017-07-11] MEDS: RT-ADVAIR HFA 115/21 MCG PER PUFF IH SCH ×2 (16:10→18:22)
[2017-07-11 16:15] VITALS: BP 112/75
[2017-07-11] MEDS: ceFAZolin 2 GM/50 ML NS 50 ML IV SCH (16:29)
[2017-07-11] MEDS: DILTIAZEM 240 MG (CARDIZEM CD) CAP PO SCH (16:29)
[2017-07-11] MEDS ORDERED: SCOPOLAMINE 1.5 MG (TRANSDERM-SCOP) PATCH TOP SCH (17:15)
[2017-07-11] MEDS: RT-ALBUTEROL/IPRATROPIUM 3 ML (DUONEB) VIAL IH SCH ×2 (18:22→21:36)
[2017-07-11 19:20] VITALS: BP 122/69
[2017-07-11] MEDS: warFARin 2.5 MG (COUMADIN) TAB PO SCH (19:21)
[2017-07-11] MEDS: NS IV 1000 ML 1,000 ML IV SCH (19:22)
[2017-07-11] MEDS: LOSARTAN 50 MG (COZAAR) TAB PO SCH (21:29)
[2017-07-11] MEDS: MONTELUKAST 10 MG (SINGULAIR) TAB PO SCH (21:29)
[2017-07-11] MEDS: HYDROCHLOROTHIAZIDE 12.5 MG (HCTZ) CAP PO SCH (21:29)
[2017-07-12] VITALS (7 sets, daily range): BP systolic 100–151; BP diastolic 58–89
[2017-07-12] MEDS: ceFAZolin 2 GM/50 ML NS 50 ML IV SCH (01:08)
[2017-07-12] MEDS: RT-ALBUTEROL/IPRATROPIUM 3 ML (DUONEB) VIAL IH SCH ×6 (02:06→22:17)
[2017-07-12] MEDS: diphenhydrAMINE 50 MG/ML INJ (BENADRYL) IV PRN ×2 (03:19→10:30)
[2017-07-12] MEDS: NS IV 1000 ML 1,000 ML IV SCH ×3 (03:19→23:22)
[2017-07-12 05:10] LABS: MEAN PLATELET VOLUME 11.2 FL (7.4-10.4); RED BLOOD COUNT 5.22 10^6/uL (4.35-5.85); RED CELL DISTRIBUTION WIDTH 14.3 % (10.0-14.5); WHITE BLOOD COUNT 12.2 10^3/uL (4.3-11.0)
[2017-07-12 05:42] LABS: INR 1.3 (0.8-1.4); PROTHROMBIN TIME PATIENT 15.8 SEC (12.2-14.7)
[2017-07-12 05:50] LABS: ANION GAP 10 MMOL/L (5-14); BLOOD UREA NITROGEN 10 MG/DL (7-18); BUN/CREATININE RATIO 14; CALCIUM 9.6 MG/DL (8.5-10.1); CARBON DIOXIDE 27 MMOL/L (21-32); CHLORIDE 100 MMOL/L (98-107); CREATININE SERUM 0.69 MG/DL (0.60-1.30); GFR ESTIMATED > 60; GLUCOSE 106 MG/DL (70-105); POTASSIUM 3.6 MMOL/L (3.6-5.0); SODIUM 137 MMOL/L (135-145)
[2017-07-12] MEDS: HYDROcodone/APAP 10 MG/325 MG (LORTAB) TAB PO PRN ×3 (06:07→19:49)
[2017-07-12] MEDS ORDERED: INFLUENZA TRIvalent 2017-2018 0.5 ML/45 MCG SYR IM ONE (07:15)
[2017-07-12] MEDS ORDERED: ENOXAPARIN 40 MG/0.4 ML (LOVENOX) SYR SC SCH (09:00)
[2017-07-12] MEDS: SENNA W/DOCUSATE (SENOKOT S) TABLET PO SCH ×2 (09:35→19:50)
[2017-07-12] MEDS: DILTIAZEM 240 MG (CARDIZEM CD) CAP PO SCH (09:35)
[2017-07-12] MEDS ORDERED: PATIENT MAY USE OWN MED,SINGLE MED PO SCH (10:30)
[2017-07-12] MEDS: RT-ADVAIR HFA 115/21 MCG PER PUFF IH SCH ×2 (11:00→18:37)
--- NOTE | 2017-07-12 11:38 | Physical Therapy Evaluation ---
PT Evaluation-General Medical Diagnosis Admission Date Jul 11, 2017 at 05:53 Medical Diagnosis: DJD R knee Onset Date: Jul 11, 2017 Therapy Diagnosis Therapy Diagnosis: weakness; abn gait Height/Weight Height (Feet): 5 Height (Inches): 6.00 Weight (Pounds): 185 Weight (Ounces): 8.0 Precautions Precautions/Isolations: Standard Precautions Weight Bear Status Right Lower Extremity: Right Full Weight Bearing Left Lower Extremity: Left Full Weight Bearing Referral Physician: Kishore Reason for Referral: Evaluation/Treatment Medical History Pertinent Medical History: Atrial Fib, Arthritis, GERD Additional Medical History left TKR in February 2017 Current History Elective right TKR. Plans to discharge to [facility] upon discharge from hospital Reviewed History: Yes Social History Home: Multilevel (but stays on one level) Current Living Status: Spouse Entry Into Home: Stairs With Railing Prior/Core FIM Prior Level of Function Functional [place] Measure 0=Not Assessed/NA 4=Minimal Assistance 1=Total Assistance 5=Supervision or Setup 2=Maximal Assistance 6=Modified [place] 3=Moderate Assistance 7=Complete [place] Pt was indep with mobility prior to this surgery. [facility] Evaluation-Current Subjective Agreeable. Reports she feels more alert this time compared to last surgery. Pain Numeric Pain Scale: 5-Moderate Pain Location: Right Location Body Site: Knee Pain Description: Ache Pt/Family Goals Dischrge to [facility] when medically stable. Objective Patient Orientation: Person, Place, Time, Situation Problem Solving: Good Attachments: Oxygen, IV ROM/Strength ROM Lower Extremities Lef tLE WNL: Right LE WNL except knee flexion to 60 degrees only; able to fully extend knee. Strength Lower Extremities Left LE grossly 4/5 Right LE grossly 3/5; able to perform a SLR Integumentary/Posture Integumentary Refer to nursing notes. Bowel Incontinence: No Bladder Incontinence: Li Cath Posture Normal and symmetrcal Neuromuscular (Tone, Coordination, Reflexes) No noted functional deficits Sensory Vision: Wears Glasses Hearing: Functional Hand Dominance: Right Sensation Right Lower Extremit: Intact Sensation Left Lower Extremity: Intact Transfers Functional [place] Measure 0=Not Assessed/NA 4=Minimal Assistance 1=Total Assistance 5=Supervision or Setup 2=Maximal Assistance 6=Modified [place] 3=Moderate Assistance 7=Complete [place] Transfers (B, C, W/C) (FIM): 4 Supine to/from Sit: 4 Sit to/from Stand: 4 bed t/f WC(FIM only if WC use): 4 Min asssit with all transfers with cues for sequencing and safety. Gait Anticipated Mode of Locomotion: Walk Gait (FIM): 2 Distance (FIM): 4=030-27 ft Distance: 75 ft Gait Level of Assist: 4 Gait Persons Needed: 1 Gait Assistive Device: FWW Comments/Gait Description Step through gait with the left LE and able to perform a heel strike and toe off right. Slightly antalgic and heavy reliance on UE;s Balance Sitting Static: Good Sitting Dynamic: Good Standing Static: Fair Standing Dynamic: Fair Treatment Set up CPM; Worked on sit to from stand as well as bed mobility and gait training with skilled cues for sequencing and safety. Assessment/Needs Post TKR right with decreased functional strength and rOM. She will benefit from skilleed PT to work on mobility to allow her to return to her PLOF. Rehab Potential: Good PT Vapor Coater Goals Assisted Goals PT Assisted Goals Time Frame: Jul 17, 2017 Transfers (B,C,W/C) (FIM): 5 Gait (FIM): 5 Gait Assistive Device: FWW PT Plan Problem List Problem List: Activity Tolerance, Functional Strength, Safety, Balance, Gait, Transfer, Bed Mobility Treatment/Plan Treatment Plan: Continue Plan of Care Treatment Plan: Bed Mobility, Education, Functional Activity Randall, Functional Strength, Gait, Safety, Therapeutic Exercise, Transfers Treatment Duration: Jul 17, 2017 Frequency: 11 times per week Estimated Hrs Per Day: 1 hour per day Patient and/or Family Agrees t: Yes Safety Risks/Education Patient Education: Gait Training, Transfer Techniques, Safety Issues Teaching Recipient: Patient Teaching Methods: Discussion Response to Teaching: Reinforcement Needed Time/GCodes Time In: 845 Time Out: 930 Total Billed Treatment Time: 45 Total Billed Treatment visit EVM 15 FA 30 CPM set up TREVOR LEBLANC PT Jul 12, 2017 11:38
--- NOTE | 2017-07-12 11:48 | Consultation-Hospitalist ---
HPI History of Present Illness: HPI/Chief Complaint CC: Medical management following right total knee replacement POD # 1 uncomplicated HPI: This is a 72 yoWF pt who underwent uncomplicated right knee replacement. She remains afebrile, vitals stable. I reviewed home medication and pt is on Coumadin. WBC 12.2, CMP normal, BMP normal, INR 1.3 Patient Interview: Pt states she remembers me from her last [facility] stay in 03/11 and pt confirms recovering well. Pt states she feels itchy around her head and shoulders. Pt states she has been receiving Benadryl Labs were discussed and are okay Pt confirms PCP as Mary Yu and Dr. Godinez as Geotechnical Engineer and Dr Bobo is Database Manager Pt confirms using O2 at night. Physical exam stable Pt denies having a BM yet and states she did not have issues with constipation after her last DC. Pt states she stayed in [facility] for one week. Pt laughed about having to take PO K+ in [facility]. Pt confirms that she will go to [facility] like before. Pt confirms using IS, but states not as often because she keeps sleeping Pt states she brought some of her home meds Scribed by Angelia Cuadra under the direct supervision of Dr. Braun. Source: patient Exam Limitations: no limitations Date Seen 07/12/17 Attending Physician Apollo Novak DO PCP No,Local Physician Referring Physician Date of Admission Jul 11, 2017 at 05:53 Home Medications & Allergies Home Medications Reviewed patient Home Medication Reconciliation Form Allergies Allergies Coded Allergies betamethasone (Verified Allergy, Intermediate, HIGH B/P, 03/08/17) povidone-iodine (Verified Allergy, Intermediate, RASH, 03/08/17) prednisone (Verified Allergy, Intermediate, HIGH B/P, HEADACHE, IRR HR, ) soap (Verified Allergy, Intermediate, RASH, 03/08/17) EMIL Inhibitors (Verified Allergy, Mild, 04/16/15) ciprofloxacin (Verified Allergy, Mild, 03/08/17) codeine (Verified Allergy, Mild, 03/08/17) Uncoded Allergies STEROIDS ( Allergy, Intermediate, HEADACHE, 03/08/17) Past Veoijaw-Xdxgqt-Qntdvd Hx Patient Social History Marrital Status: single Alcohol Use: Denies Use Recreational Drug Use: No Smoking Status: Former Smoker Former Smoker, Quit: Mar 08, 1984 Physical Abuse Screen: No Sexual Abuse: No Recent Foreign Travel: No Contact w/other who traveled: No Recent Hopitalizations: No Recent Infectious Disease Expo: No Immunizations Up To Date Date of Pneumonia Vaccine: Jul 04, 2016 Seasonal Allergies Seasonal Allergies: No Surgeries Yes (CARPAL TUNNEL, ENTRAPPED ULNAR NERVE, LEFT TKR) Adenoidectomy, Appendectomy, Gallbladder, Orthopedic (left knee 03/11), Tonsillectomy, Tubal Ligation Respiratory Yes (O2 NEEDED AND AT NIGHT, 2.5L NC) Asthma Cardiovascular Yes Atrial Fibrillation, High Cholesterol, Hypertension Neurological Yes Neuropathy Reproductive System Sexually Transmitted Disease: No HIV/AIDS: No Genitourinary No (CYST IN KIDNEYS) Gastrointestinal Yes Gastroesophageal Reflux, Hemorrhoids, Polyps, Irritable Bowel Musculoskeletal Yes (OSTEOARTHRITIS RIGHT KNEE) Arthritis Endocrine History of Endocrine Disorders: No HEENT History of HEENT Disorders: Yes (GLASSES, DENTURES) Loss of Vision: Bilateral Hearing Impairment: Denies Cancer No Psychosocial History of Psychiatric Problem: No Integumentary History of Skin or Integumenta: No Blood Transfusions History of Blood Disorders: No Adverse Reaction to a Blood Tr: No (N/A) Family Medical History Significant Family History: No Pertinent Family Hx Family Hx: COPD 19 MOTHER Cardiovascular disease Dementia 19 MOTHER Guillain-Bureau syndrome 19 FATHER History of emphysema in sibling G8 SISTER Hypertension 19 MOTHER G8 SISTER Tuberculosis 19 FATHER Review of Systems Constitutional: see HPI EENTM: no symptoms reported Respiratory: no symptoms reported Cardiovascular: no symptoms reported Gastrointestinal: no symptoms reported Genitourinary: no symptoms reported Musculoskeletal: joint pain (right knee) Skin: no symptoms reported Psychiatric/Neurological: No Symptoms Reported All Other Systems Reviewed Negative Unless Noted: Yes Physical Exam Physical Exam Vital Signs Vital Sign - Last 12Hours 07/11/17 07/11/17 07/11/17 07:23 07:25 16:15 Temp 97.5 Pulse 87 Resp 16 B/P (MAP) 131/105 Pulse Ox 97 O2 Delivery Room Air O2 Flow Rate 3.00 Capillary Refill : General Appearance: No Apparent Distress, WD/WN, Chronically ill Eyes: Bilateral Eye Normal Inspection, Bilateral Eye PERRL HEENT: PERRL/EOMI, Normal ENT Inspection, Pharynx Normal Neck: Full Range of Motion, Normal Inspection, Non Tender, Supple, Carotid Bruit Respiratory: Chest Non Tender, Lungs Clear, No Accessory Muscle Use, No Respiratory Distress, Decreased Breath Sounds Cardiovascular: No Edema, No Gallop, No JVD, No Murmur, Normal Peripheral Pulses, Irregularly Irregular Gastrointestinal: Normal Bowel Sounds, No Organomegaly, No Pulsatile Mass, Non Tender, Soft Back: Normal Inspection, No CVA Tenderness, No Vertebral Tenderness Extremity: Normal Capillary Refill, Normal Inspection, Normal Range of Motion ( limited ROM right knee), Non Tender, No Calf Tenderness, No Pedal Edema Neurologic/Psychiatric: Alert, Oriented x3, No Motor/Sensory Deficits, Normal Mood/Affect Skin: Normal Color, Warm/Dry Lymphatic: No Adenopathy Results Results/Procedures Lab Laboratory Tests 07/12/17 04:55 Assessment/Plan Admission Diagnosis Assessment: Status post uncomplicated right total knee replacement by Dr. Novak POD # 1 Chronic atrial fibrillation on Coumadin therapy restarted last night Hypertension Osteoarthritis IBS Assessment and Plan Plan: IS Restart home Diltiazem tablet instead of capsule since they are undigested per pt Continue Benadryl for itching BM regimen Check labs in am Coumadin treatment Clinical Quality Measures DVT/VTE Risk/Contraindication: Risk Factor Score Per Nursin RFS Level Per Nursing on Admit: 4+=Very High FRANCHESCA BRAUN DO Jul 12, 2017 11:48
--- NOTE | 2017-07-12 12:20 | Progress Note (SOAP) ---
Subjective Date Seen by Provider: Jul 12, 2017 Time Seen by Provider: 12:18 Subjective/Events-last exam currently no complaints, doing well Objective Exam Vital Signs Date Time Temp Pulse Resp B/P (MAP) Pulse Ox O2 Delivery O2 Flow Rate FiO2 07/12/17 11:00 90 Nasal Cannula 3.00 07/12/17 08:46 92 Nasal Cannula 3.00 07/12/17 08:00 98.1 100 24 108/58 94 Nasal Cannula 2.00 07/12/17 04:25 98.4 78 18 108/62 94 Nasal Cannula 2.00 07/12/17 02:06 93 Nasal Cannula 3.00 07/12/17 00:03 97.2 88 19 100/59 93 Nasal Cannula 2.00 07/11/17 21:37 91 Nasal Cannula 3.00 07/11/17 19:20 96.9 73 21 122/69 95 Nasal Cannula 3.00 07/11/17 18:22 93 Nasal Cannula 3.00 07/11/17 16:15 96.7 69 22 112/75 95 Nasal Cannula 3.00 Capillary Refill : General Appearance: No Apparent Distress Peripheral Pulses: 2+ Dorsalis Pedis (R), 2+ Left Dors-Pedis (L) Gastrointestinal: non tender, soft Extremity: Normal Capillary Refill, Normal Inspection, No Calf Tenderness, No Pedal Edema Neurologic/Psychiatric: Alert, Oriented x3, No Motor/Sensory Deficits, Normal Mood/Affect Skin: Normal Color, Warm/Dry (dressing to right knee is CDI with no active drainage) Results Lab Laboratory Tests 07/12/17 04:55: White Blood Count 12.2H, Red Blood Count 5.22, Hemoglobin 13.7, Hematocrit 42, Mean Corpuscular Volume 81, Mean Corpuscular Hemoglobin 26, Mean Corpuscular Hemoglobin Concent 33, Red Cell Distribution Width 14.3, Platelet Count 267, Mean Platelet Volume 11.2H, Prothrombin Time 15.8H, INR Comment 1.3, Sodium Level 137, Potassium Level 3.6, Chloride Level 100, Carbon Dioxide Level 27, Anion Gap 10, Blood Urea Nitrogen 10, Creatinine 0.69, Estimat Glomerular Filtration Rate > 60, BUN/Creatinine Ratio 14, Glucose Level 106H, Calcium Level 9.6 Assessment/Plan Assessment/Plan Assess & Plan/Chief Complaint A: s/p right TKA P: Continue current treatment, plan to DC to [facility] skilled or swing bed on Monday. Start Dressing changes. Continue physical therapy. DC [facility] Clinical Quality Measures DVT/VTE Risk/Contraindication: Risk Factor Score Per Nursin RFS Level Per Nursing on Admit: 4+=Very High SHAWNEE GONSALES APRN Jul 12, 2017 12:20 pm
--- NOTE | 2017-07-12 12:36 | Anesthesia-General Post-Op ---
General Patient Condition Mental Status/LOC: Same as Preop Cardiovascular: Satisfactory Nausea/Vomiting: Absent Respiratory: Satisfactory Pain: Controlled Complications: Absent Post Op Complications Complications None Follow Up Care/Instructions Patient Instructions None needed. Anesthesia/Patient Condition Patient Condition Patient is doing well, no complaints, stable vital signs, no apparent adverse anesthesia problems. No complications reported per nursing. D/C home per [facility] Criteria: No GIULIANO ALVARADO CRNA Jul 12, 2017 12:36
[2017-07-12] MEDS: KETOROLAC 15 MG/ML VIAL IVP PRN ×2 (13:42→20:20)
--- NOTE | 2017-07-12 15:10 | OPERATIVE REPORT ---
DATE OF SERVICE: 07/11/2017 PREOPERATIVE DIAGNOSIS: Primary osteoarthritis, right knee. POSTOPERATIVE DIAGNOSIS: Primary osteoarthritis, right knee. PROCEDURE: Right total knee arthroplasty. SURGEON: Jairo Hernandez DO. EXTERIOR INTERIOR SPECIALIST: NAYLA Larson SURGICAL EXTERIOR INTERIOR SPECIALIST DUTIES: NAYLA Larson was utilized throughout the entire procedure as a surgical coordinator for soft tissue retraction, placement of metallic implants, wound closure, dressing application and patient transfer. ANESTHESIA: Subarachnoid block with femoral nerve block. ESTIMATED BLOOD LOSS: 150 mL. COMPLICATIONS: None. INDICATIONS AND FINDINGS: The patient is a 72-year-old female seen with chief complaint of progressive right knee pain, nonresponsive to conservative treatment. X-rays revealed a varus deformity to the right knee with collapse of the medial compartment. The patient had previously undergone a left total knee arthroplasty by myself and had done well. The patient was taken to surgery where a total knee arthroplasty on the right was performed utilizing the Biomet Werckerguard total knee system with a Press-fit 62.5 mm femoral component, a 71 mm cemented tibial component, and 11 mm anterior stabilized tibial bearing implant along with a 31 mm 3 pronged polyethylene cemented thin patellar component. Palacos bone cement with gentamicin was utilized as well. PROCEDURE IN DETAIL: The patient was seen by anesthesia and a femoral nerve block was performed. The patient was transported to the operating room where a subarachnoid block was administered. A well padded pneumatic tourniquet was placed about the upper aspect of the right thigh. A ChloraPrep and sterile drape of the right lower extremity was performed. The right leg was elevated, exsanguinated and a tourniquet was inflated to 300 mmHg pressure. An anterior longitudinal midline incision was made over the anterior surface of the right knee. The incision was deepened through a medial parapatellar incision. Osteophyte formation from the distal femur was removed with a bone rongeur. A ship pilot hole was then drilled in distal femur. An intramedullary surjit was inserted utilizing a 6 degree valgus cutting angle. A distal femoral cutting guide was assembled and a distal femoral osteotomy was completed. The distal femur was sized to a 62.5 mm femoral component and a 4 way cutting block was assembled and anterior, posterior and chamfer cuts of the distal femur were made. The tibia was subluxed anteriorly. Remnants of the medial and lateral menisci were excised as was the anterior cruciate ligament and portions of the posterior cruciate ligament. A ship pilot hole was then drilled in the proximal tibia. An intramedullary surjit was inserted measuring off the exposed bone over the proximal medial tibia. A proximal tibial cutting guide was assembled and proximal tibial osteotomy was completed. Subperiosteal dissection was performed over the proximal medial tibia to allow placement of a 10 mm spacer and allow full extension of the knee. Osteophyte formation from the patellar rim was removed with a bone rongeur. The posterior aspect of the patella was resected through a cutting guide and drilled through a drill guide. Provisional components were inserted. The knee was cycled through a range of motion and full extension was obtained with a 10 mm spacer. The patient demonstrated just a trace of laxity in full flexion on drawer testing the knee. Rotation of the tibial component was noted and marked on the proximal tibia. The proximal tibia was then broached to accept the I-beam stem portion of the tibial implant. The bony surfaces were irrigated extensively with normal saline solution. Palacos cement with gentamicin was then mixed. This was pressurized in the proximal tibia and the tibial component was cemented in place. The femoral component was Press-fitted and placed. The patellar component was cemented and placed with a clamp. All excessive bone cement was removed. The cement was allowed to set. The provisional tibial bearing implant was removed and 11 mm anterior stabilized tibial bearing implant was then inserted and locked anteriorly with a locking bar. The knee was cycled through range of motion and full extension was obtained with no instability in mid flexion or full flexion. The tourniquet was released. Hemostasis was obtained with electrocautery. The knee was irrigated extensively with normal saline solution. The knee was placed in 90 degrees of flexion. The medial retinaculum was closed in multiple interrupted [id number] sutures of #1 Vicryl. The repair was reinforced with a running suture of #1 Stratafix. The subcutaneous tissues were closed with 0 and 2-0 Vicryl suture and the skin was closed with stainless steel danna. An Adaptic Neosporin bulky dressing was placed about the right knee and the patient was awakened and was transported to postoperative recovery with anesthesia personnel present in satisfactory condition. Job ID: [id number] DocumentID: [id number] Dictated Date: 07/11/2017 10:47:56 Director Of Food And Nutrition Date: 07/11/2017 17:16:59 Dictated By: JAIRO HERNANDEZ DO
--- NOTE | 2017-07-12 15:32 | Occupational Therapy Eval ---
OT Evaluation-General/PLF Medical Diagnosis Admission Date Jul 11, 2017 at 05:53 Medical Diagnosis: DJD R knee Onset Date: Jul 11, 2017 Therapy Diagnosis Therapy Diagnosis: Weakness, Decreased ADL skills Height/Weight Height (Feet): 5 Height (Inches): 6.00 Weight (Pounds): 185 Weight (Ounces): 8.0 Precautions Precautions/Isolations: Standard Precautions Safety Interventions: None Weight Bear Status Weight Bearing Restriction: Weight Bearing/Tolerated Referral Physician: Kishore Referral Reason: Activity Tolerance, Self Care, Evaluation/Treatment, Strengthening/ROM Medical History Pertinent Medical History: Atrial Fib, Arthritis, GERD, OA Additional Medical History carpal tunnel, entrapped ulnar nerve, 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 had elective surgery. Reviewed History: Yes Social History Home: Multilevel (but stays on one level) Current Living Status: Spouse Entry Into Home: Stairs With Railing Steps Into Home: 6 ADL-Prior Level of Function ADL PLOF Comments Pt. was independent with daily tasks including bathing/dressing, cooking/ cleaning. Pt. drives. DME/Equipment: Bath Chair, Tub/Shower, Toilet/Riser DME/Equipment Comments Pt. has a walker Drive Self: Yes OT Current Status Subjective No pain reported. Appearance Pt. is sitting on side of bed. Agrees to work with OT. Mental Status/Objective Patient Orientation: Person, Place, Time, Situation Attachments: Polar Pack Current Glasses/Contacts: Yes Dentures/Partials: Yes Hand Dominance: Right Upper Extremity ROM WFL bilateral UE Upper Extremity Coordination intact ADL-Treatment Functional [place] Measure 0=Not Assessed/NA 4=Minimal Assistance 1=Total Assistance 5=Supervision or Setup 2=Maximal Assistance 6=Modified [place] 3=Moderate Assistance 7=Complete IndependenceIRFPAI Quality Coding Scale 6 Independent with activity with or without an assistive device 5 Patient requires set up or clean up by helper. Patient completes activity by themselves 4 Supervision or touching assist (CGA). [place] provide cues , steadying assist 3 The helper provides less than half the effort to complete the activity 2 The helper provides more than half the effort to complete the activity 1 Dependent. The helper does all the effort to complete an activity 7 Patient refused to complete or attempt activity 9 The patient did not perform the activity before the current illness or injury 88 Not attempted due to Medical conditions or safety concerns Lower Body Dressing (FIM): 5 (Pt. is able to reach feet and doff/don socks while in bed.) Transfers (B, C, W/C) (FIM): 4 (CGA in stance. SBA to get right LE into bed.) Education OT Patient Education: Correct positioning, Modified ADL techniques, Progress toward Goal/Update tx plan, Purpose of tx/functional activities, Reviewed precautions, Rehab process, Transfer techniques Teaching Recipient: Patient Teaching Methods: Demonstration Response to Teaching: Verbalize Understanding, Return Demonstration OT Short Term Goals Short Term Goals 1=Demonstrate adherence to instructed precautions during ADL tasks. 2=Patient will verbalize/demonstrate understanding of assistive devices/ modifications for ADL. 3=Patient will improve strength/tolerance for activity to enable patient to perform ADL's. OT Production Editor Goals Production Editor Goals Time Frame: Jul 19, 2017 Eating (FIM): 6 Grooming(FIM): 6 Bathing(FIM): 5 Upper Body Dressing(FIM): 6 Lower Body Dressing(FIM): 6 Toileting(FIM): 6 Transfers (B,C,W/C) (FIM): 6 Toilet/Commode Transfer(FIM): 6 Shower Transfer(FIM): 5 Additional Goals: 1-Demonstrate ADL Tasks, 2-Verbalize Understanding, 3- ImproveStrength/Randall 1=Demonstrate adherence to instructed precautions during ADL tasks. 2=Patient will verbalize/demonstrate understanding of assistive devices/ modifications for ADL. 3=Patient will improve strength/tolerance for activity to enable patient to perform ADL's. OT Education/Plan Problem List/Assessment Assessment: Decreased Activ Tolerance, Impaired I ADL's, Impaired Self-Care Skills Discharge Recommendations Plan/Recommendations: Continue POC Therapy D/C Recommendations: Home w/ Family Support, Occupational Therapy Home Care Equpiment Recommendations-D/C: Extended Bath Bench Target Placement Home with family support. Patient/Family Goals Pt. states that she may discharge to [facility] in [place]. Treatment Plan/Plan of Care Treatment,Training & Education: Yes Patient would benefit from OT for education, treatment and training to promote independence in ADL's, mobility, safety and/or upper extremity function for ADL' s. Plan of Care: ADL Retraining, Functional Mobility, UE Funct Exercise/Act Treatment Duration: Jul 19, 2017 Frequency: 5 times per week Estimated Hrs Per Day: .25 hour per day Agreement: Yes Rehab Potential: Good Time/GCodes Start Time: 15:10 Stop Time: 15:25 Total Time Billed (hr/min): 15 Billed Treatment Time 1, IRLANDA NIXON OT Jul 12, 2017 15:32
--- NOTE | 2017-07-12 15:56 | Physical Therapy Daily Note ---
PT Daily Note-Current Subjective Pt reports she feels stiff. Difficulty moving. Agrees to participate with PT. During treatment, reports she feels nauseated. then remembers that she has not eaten lunch. Mental Status Patient Orientation: Person, Place, Time, Situation Attachments: Oxygen, IV Transfers Functional [place] Measure 0=Not Assessed/NA 4=Minimal Assistance 1=Total Assistance 5=Supervision or Setup 2=Maximal Assistance 6=Modified [place] 3=Moderate Assistance 7=Complete IndependenceIRFPAI Quality Coding Scale 6 Independent with activity with or without an assistive device 5 Patient requires set up or clean up by helper. Patient completes activity by themselves 4 Supervision or touching assist (CGA). [place] provide cues , steadying assist 3 The helper provides less than half the effort to complete the activity 2 The helper provides more than half the effort to complete the activity 1 Dependent. The helper does all the effort to complete an activity 7 Patient refused to complete or attempt activity 9 The patient did not perform the activity before the current illness or injury 88 Not attempted due to Medical conditions or safety concerns Pt is min asssit with sup to sit EOB. Sit to stand x 3 reps and then transferred to from the commode. All transfers require FWW and min assist with skilled cues for sequencing and hand placement. Pt took 3-4 steps forward and back as well. Pt sitting EOB post treatment eating lunch that group therapy counselor assisted her in ordering. Weight Bearing Right Lower Extremity: Right Full Weight Bearing Left Lower Extremity: Left Full Weight Bearing Assessment Progressing. Limited by nausea today and needing to urinate but not being able to urinate. Does well with functional transfers. PT Ophthalmic Surgical Assistant Goals Senior Living Goals PT Senior Living Goals Time Frame: Jul 17, 2017 Transfers (B,C,W/C) (FIM): 5 Gait (FIM): 5 Gait Assistive Device: FWW PT Plan Problem List Problem List: Activity Tolerance, Functional Strength, Safety Treatment/Plan Treatment Plan: Continue Plan of Care Treatment Plan: Bed Mobility, Education, Functional Activity Randall, Functional Strength, Gait, Safety, Therapeutic Exercise, Transfers Treatment Duration: Jul 17, 2017 Frequency: 11 times per week Estimated Hrs Per Day: 1 hour per day Patient and/or Family Agrees t: Yes Time/GCodes Time In: 1410 Time Out: 1440 Total Billed Treatment Time: 30 Total Billed Treatment visit FA 30 TREVOR LEBLANC PT Jul 12, 2017 15:56
[2017-07-12] MEDS: LOSARTAN 50 MG (COZAAR) TAB PO SCH (19:50)
[2017-07-12] MEDS: MONTELUKAST 10 MG (SINGULAIR) TAB PO SCH (19:50)
[2017-07-12] MEDS: HYDROCHLOROTHIAZIDE 12.5 MG (HCTZ) CAP PO SCH (19:50)
[2017-07-12] MEDS ORDERED: meTOprolol SUCCINATE 100 MG (TOPROL XL) TAB PO ONE (21:15)
[2017-07-12] MEDS ORDERED: ENOXAPARIN 40 MG/0.4 ML (LOVENOX) SYR SC ONE (21:30)
[2017-07-13 00:45] VITALS: BP 142/86
[2017-07-13] MEDS: RT-ALBUTEROL/IPRATROPIUM 3 ML (DUONEB) VIAL IH SCH ×6 (02:25→22:45)
[2017-07-13] MEDS: HYDROcodone/APAP 10 MG/325 MG (LORTAB) TAB PO PRN ×2 (02:48→08:32)
[2017-07-13] MEDS: diphenhydrAMINE 50 MG/ML INJ (BENADRYL) IV PRN (03:47)
[2017-07-13 04:30] VITALS: BP 150/80
[2017-07-13 06:14] LABS: MEAN PLATELET VOLUME 11.2 FL (7.4-10.4); RED BLOOD COUNT 4.92 10^6/uL (4.35-5.85); RED CELL DISTRIBUTION WIDTH 14.3 % (10.0-14.5); WHITE BLOOD COUNT 12.6 10^3/uL (4.3-11.0)
[2017-07-13 06:24] LABS: INR 1.2 (0.8-1.4); PROTHROMBIN TIME PATIENT 15.4 SEC (12.2-14.7)
[2017-07-13 06:41] LABS: ALANINE AMINOTRANSFERASE 128 U/L (0-55); ALBUMIN 3.4 GM/DL (3.2-4.5); ANION GAP 7 MMOL/L (5-14); ASPARTATE AMINO TRANSFERASE 66 U/L (5-34); BILIRUBIN,TOTAL 0.9 MG/DL (0.1-1.0); BLOOD UREA NITROGEN 6 MG/DL (7-18); BUN/CREATININE RATIO 10; CALCIUM 9.8 MG/DL (8.5-10.1); CARBON DIOXIDE 31 MMOL/L (21-32); CHLORIDE 94 MMOL/L (98-107); CREATININE SERUM 0.58 MG/DL (0.60-1.30); GFR ESTIMATED > 60; GLUCOSE 114 MG/DL (70-105); MAGNESIUM 1.9 MG/DL (1.8-2.4); POTASSIUM 3.4 MMOL/L (3.6-5.0); SODIUM 132 MMOL/L (135-145); TOTAL PROTEIN 6.6 GM/DL (6.4-8.2)
[2017-07-13] MEDS: RT-ADVAIR HFA 115/21 MCG PER PUFF IH SCH ×2 (07:28→18:58)
[2017-07-13 08:00] VITALS: BP 121/70
[2017-07-13] MEDS: SENNA W/DOCUSATE (SENOKOT S) TABLET PO SCH ×2 (08:32→20:58)
[2017-07-13] MEDS: meTOprolol SUCCINATE 100 MG (TOPROL XL) TAB PO SCH (08:32)
[2017-07-13] MEDS: warFARin 2.5 MG (COUMADIN) TAB PO SCH (08:33)
[2017-07-13] MEDS: ENOXAPARIN 40 MG/0.4 ML (LOVENOX) SYR SC SCH ×2 (08:33→20:58)
[2017-07-13] MEDS: DILTIAZEM 240 MG (CARDIZEM CD) CAP PO SCH (08:39)
--- NOTE | 2017-07-13 09:04 | Consultation-Cardiology ---
HPI-Cardiology Cardiology Consultation: Date of Consultation 07/13/17 Time Seen by Provider: 08:50 Date of Admission 07-12-17 Attending Physician Apollo Novak DO Admitting Physician Carissa,Local Physician Consulting Physician Alisa Miranda MD HPI: Chief Complaint: Chronic A-fib Ms. Page is a 72 year old [facility]. She denies any c/o CP, palpitations, syncope, near syncope or dyspnea. She reports she has chronic a-fib diagnosed approx 2 years ago. She states she is on warfarin tx. Her primary woods manager is Dr. Bobo. She does not report any LE edema. She reports some generalized weakness. Review of Systems-Cardiology Review of Systems Constitutional: No chills, No fever, No lightheadedness Eyes: No blindness, No blurred vision, No contact lenses, No drainage, No decreased acuity, No foreign body sensation, No pain, No vision change Ears/Nose/Throat: No chronic hearing loss, No ear discharge, No ear pain, No nasal drainage, No ulcerations Respiratory: As described under HPI Cardiovascular: As described under HPI Gastrointestinal: No abdomen distended, No abdominal pain, No blood streaked bowels, No constipation, No diarrhea, No nausea, No vomiting, No stool coloration changes Genitourinary: No burning, No dysuria, No discharge, No frequency, No flank pain, No hematuria, No urgency : Yes : No Skin: No rash, No skin related problems, No ulcerations Psychiatric/Neurological: No anxiety, No depression, No seizure, No focal weakness, No syncope Hematologic: No bleeding abnormalities All Other Systems Reviewed Negative Unless Noted: Yes UAQ-Wanvvw-Ohfrur Hx Patient Social History Marrital Status: single Alcohol Use: Denies Use Recreational Drug Use: No Smoking Status: Former Smoker Recent Foreign Travel: No Recent Infectious Disease Expo: No Physical Abuse Screen: No Sexual Abuse: No Immunizations Up To Date Date of Pneumonia Vaccine: Jul 04, 2016 Past Medical History PMH As described under Assessment. Family Medical History Family Medical History: She reports her mother and sister had HTN. No h/o premature CAD or SCD. Family History: 19 FATHER Tuberculosis Guillain-Forest syndrome 19 MOTHER Dementia Hypertension COPD G8 SISTER Hypertension History of emphysema in sibling Relation not specified for: Cardiovascular disease Allergies and Home Medications Allergies Coded Allergies: betamethasone (Verified Allergy, Intermediate, HIGH B/P, 6/14/17) povidone-iodine (Verified Allergy, Intermediate, RASH, 03/08/17) prednisone (Verified Allergy, Intermediate, HIGH B/P, HEADACHE, IRR HR, ) soap (Verified Allergy, Intermediate, RASH, 03/08/17) EMIL Inhibitors (Verified Allergy, Mild, 04/16/15) ciprofloxacin (Verified Allergy, Mild, 03/08/17) codeine (Verified Allergy, Mild, 03/08/17) Uncoded Allergies: STEROIDS (Allergy, Intermediate, HEADACHE, 03/08/17) Home Medications Acetaminophen 500 Mg Tablet, 500-1,000 MG PO Q8H PRN for MIGRAINE, (Reported) TAKES 1-2 (500 MG) TABLETS Albuterol/Ipratropium 4 Gm Aero, 1 PUFF IH Q4H PRN for SHORTNESS OF BREATH, ( Reported) Budesonide/Formoterol Fumarate 10.2 Gm Hfa.aer.ad, 2 PUFF IH BID, (Reported) Cyclobenzaprine HCl 10 Mg Tablet, 10 MG PO QID PRN for MUSCLE SPASMS, (Reported) Diltiazem HCl 240 Mg Tab.er.24h, 240 MG PO DAILY, (Reported) Famotidine 10 Mg Tablet, 10 MG PO DAILY PRN for HEARTBURN, (Reported) Hyoscyamine Sulfate 0.125 Mg Tablet, 0.125 MG PO BID PRN for colon spasms, ( Reported) Ipratropium/Albuterol Sulfate 3 Ml Ampul.neb, 3 ML IH Q4H, (Reported) Losartan/Hydrochlorothiazide 1 Each Tablet, 1 TAB PO HS, (Reported) Montelukast Sodium 10 Mg Tablet, 10 MG PO HS, (Reported) Simethicone 125 Mg Tab.chew, 125 MG PO TID PRN for INDIGESTION, (Reported) Warfarin Sodium 2.5 Mg Tablet, 2.5 MG PO SuMoTuThFr, (Reported) Physical Exam-Cardiology Physical Exam Vital Signs/I&O Vital Sign - Last 12Hours 07/13/17 07/13/17 07/13/17 07/13/17 00:45 01:00 02:25 04:30 Temp 98.3 97.7 Pulse 100 97 91 Resp 18 18 B/P (MAP) 142/86 150/80 Pulse Ox 94 93 97 O2 Delivery Nasal Cannula Nasal Cannula Nasal Cannula O2 Flow Rate 4.00 4.00 4.00 07/13/17 07/13/17 07/13/17 07/13/17 07:00 07:28 08:00 09:39 Temp 98.3 Pulse 86 85 Resp 18 B/P (MAP) 121/70 Pulse Ox 93 93 93 O2 Delivery Nasal Cannula Nasal Cannula Nasal Cannula O2 Flow Rate 4.00 4.00 3.50 Capillary Refill : Constitutional: appears stated age, No apparent distress, well-developed, well- nourished HEENT: PERRL, No discharge, hearing is well preserved, oral hygience is good, No ulceration, No xanthelasmas are seen Neck: No carotid bruit, carotid pulses are 2 + bilaterally Respiratory: No accessory muscle use, No respiratory distress, lungs clear to percussion, lungs clear to auscultation Cardiovascular: irregularly irregular, No JVD, S1 and S2 Gastrointestinal: No tender, soft, round, audible bowel sounds, No spleenomegaly Rectal: deferred Extremities: No clubbing, No cyanosis, No significant edema Neurologic/Psychiatric: alert, oriented x 3, power is 5/5 both on sides Skin: No rash, No ulcerations, other (Dressing to right knee D&I) Data Review Labs Laboratory Tests 07/13/17 05:45: White Blood Count 12.6H, Red Blood Count 4.92, Hemoglobin 12.9, Hematocrit 40, Mean Corpuscular Volume 81, Mean Corpuscular Hemoglobin 26, Mean Corpuscular Hemoglobin Concent 32, Red Cell Distribution Width 14.3, Platelet Count 246, Mean Platelet Volume 11.2H, Prothrombin Time 15.4H, INR Comment 1.2, Sodium Level 132L, Potassium Level 3.4L, Chloride Level 94L, Carbon Dioxide Level 31, Anion Gap 7, Blood Urea Nitrogen 6L, Creatinine 0.58L, Estimat Glomerular Filtration Rate > 60, BUN/Creatinine Ratio 10, Glucose Level 114H, Calcium Level 9.8, Magnesium Level 1.9, Total Bilirubin 0.9, Aspartate Amino Transf (AST /SGOT) 66H, Alanine Aminotransferase (ALT/SGPT) 128H, Alkaline Phosphatase 124, Total Protein 6.6, Albumin 3.4 Radiology NAME: LEONID PAGE [facility] REC#: [id number] PT STATUS: ADM IN : 1945 PHYSICIAN: SHAWNEE GONSALES APRN ADMIT DATE: 07/11/17/SURG Signed Date of Exam: 07/11/17 KNEE, RIGHT, 2 VIEWS 2 views of the right knee. Indication: post total knee arthroplasty Findings: There is femoral and tibial prosthesis with patellar resurfacing and prosthesis seen. Anterior soft tissue post-operative changes are noted with anterior skin danna seen. Impression: Baseline post right total knee arthroplasty in good alignment. Dictated by: Dictated on workstation # [id number] Dict: 07/11/17 1107 Trans: 07/11/17 1111 Interpreted by: ARLYN ALEMAN MD Electronically signed by: ARLYN ALEMAN MD 07/11/17 1111 ECG Impression ECG Initial ECG Impression: Atrial Fibrillation A/P-Cardiology Assessment/Admission Diagnosis Chronic a-fib (reports diagnosed approx 2 years ago) - controlled ventricular rate Echo of 07/13/17: LVEF 60-65%, mod MAC, no significant valvular heart disease, PASP 40 - 45 mmHg Reports stress test approx 2 years ago which she reports as "normal" Reports echocardiogram approx 2 years ago which she reports as "normal" Denies h/o sleep apnea, but does report oxygen desaturation at hs for which she has supplemental oxygen OAC with warfarin - managed by her primary woods manager Dr. Bobo HTN S/P right knee surgery on 07-12-17 Discussion and Recomendations Chronic a-fib with a controlled ventricular rate. Continue Diltiazem for rate control. Chronic OAC with warfarin which we will continue for stroke prophylaxis. Bridge with Lovenox until INR greater than 2.0, then stop. Continue BB and ARB for HTN. Monitor lab closely. Replace potassium. Monitor tele. We would like to thank medical services for this consult. Further recommendations will be based on her hospital course. This consult is being scribed by Shatni Cohen APRN on behalf of Dr. Miranda after discussion regarding plan of care. Clinical Quality Measures DVT/VTE Risk/Contraindication: Risk Factor Score Per Nursin RFS Level Per Nursing on Admit: 4+=Very High Physician Assessment Physician Assessment No cp or palp or syncope Lungs: good bilat air entry Cor: irreg Ext: no c/c/e A&R * As documented in our note above that I updated (italics) and as noted below * Resume warfarin * Continue Lovenox (in the max dose allowed by the Surg Svce) until INR therapeutic on warfarin * I spoke with her in detail and answered her questions * I also discussed her case with SHANTI Castellano Jul 13, 2017 09:04 ALISA MIRANDA MD FAC FAC CCDS Jul 13, 2017 11:10
[2017-07-13] MEDS: NS IV 1000 ML 1,000 ML IV SCH (09:20)
[2017-07-13] MEDS ORDERED: KCL 20 MEQ TAB (K-DUR) PO NR ×2 (10:15→11:15)
--- NOTE | 2017-07-13 10:25 | Physical Therapy Daily Note ---
PT Daily Note-Current Subjective Patient agrees to PT. Patient c/o 8/10 right knee with RN issuing pain medication. Pain Numeric Pain Scale: 8 Location: Right Location Body Site: Knee Pain Description: Acute Mental Status Patient Orientation: Normal For Age Attachments: Oxygen Transfers Functional [place] Measure 0=Not Assessed/NA 4=Minimal Assistance 1=Total Assistance 5=Supervision or Setup 2=Maximal Assistance 6=Modified [place] 3=Moderate Assistance 7=Complete IndependenceIRFPAI Quality Coding Scale 6 Independent with activity with or without an assistive device 5 Patient requires set up or clean up by helper. Patient completes activity by themselves 4 Supervision or touching assist (CGA). [place] provide cues , steadying assist 3 The helper provides less than half the effort to complete the activity 2 The helper provides more than half the effort to complete the activity 1 Dependent. The helper does all the effort to complete an activity 7 Patient refused to complete or attempt activity 9 The patient did not perform the activity before the current illness or injury 88 Not attempted due to Medical conditions or safety concerns Transfers (B, C, W/C) (FIM): 4 Scootin Rollin Supine to/from Sit: 5 Sit to/from Stand: 4 Weight Bearing Right Lower Extremity: Right Full Weight Bearing Left Lower Extremity: Left Full Weight Bearing Gait Training Gait (FIM): 2 Distance (FIM): 4=574-46 ft Distance: 75' Gait Level of Assist: 4 Gait Persons Needed: 1 Gait Assistive Device: FWW slow, step to gait sequence Exercises Supine Ex: Ankle pumps, Quad Set, Heel Slides Supine Reps: 10 Seated Therapy Exercises: Ankle pumps, Long arc quads Seated Reps: 10 (AAROM right LE) Assessment Patient progressing with treatment plan. Patient [place] [facility] [facility] from [facility]. PT Detention Goals Emergency Services Dispatcher Goals PT Detention Goals Time Frame: Jul 17, 2017 Transfers (B,C,W/C) (FIM): 5 Gait (FIM): 5 Gait Assistive Device: FWW PT Plan Treatment/Plan Treatment Plan: Continue Plan of Care Treatment Plan: Bed Mobility, Education, Functional Activity Randall, Functional Strength, Gait, Safety, Therapeutic Exercise, Transfers Treatment Duration: Jul 17, 2017 Frequency: 11 times per week Estimated Hrs Per Day: 1 hour per day Patient and/or Family Agrees t: Yes Time/GCodes Time In: 836 Time Out: 901 Total Billed Treatment Time: 25 Total Billed Treatment 1 visit EX 10 min GT 15 min SIRENA EUCEDA PT Jul 13, 2017 10:25
--- NOTE | 2017-07-13 10:42 | Progress Note-Hospitalist ---
Progress Note HPI/CC on Admission CC: Medical management following right total knee replacement POD # 1 uncomplicated HPI: This is a 72 yoWF pt who underwent uncomplicated right knee replacement. She remains afebrile, vitals stable. I reviewed home medication and pt is on Coumadin. WBC 12.2, CMP normal, BMP normal, INR 1.3 Patient Interview: Pt states she remembers me from her last [facility] stay in 03/11 and pt confirms recovering well. Pt states she feels itchy around her head and shoulders. Pt states she has been receiving Benadryl Labs were discussed and are okay Pt confirms PCP as Mary Yu and Dr. Godinez as Heel Reducer and Dr Bobo is Pipe Straightener Pt confirms using O2 at night. Physical exam stable Pt denies having a BM yet and states she did not have issues with constipation after her last DC. Pt states she stayed in [place] [facility] for one week. Pt laughed about having to take PO K+ in [place]. Pt confirms that she will go to [facility] like before. Pt confirms using IS, but states not as often because she keeps sleeping Pt states she brought some of her home meds Scribed by Angelia Cuadra under the direct supervision of Dr. Braun. Progress Notes/Assess & Plan Date Seen 07/13/17 Time Seen by Provider: 10:40 Admission Dx/Process Assessment: Status post uncomplicated right total knee replacement by Dr. Novak POD # 1 Chronic atrial fibrillation on Coumadin therapy restarted last night Hypertension Osteoarthritis IBS Diagonsis/Assessment & Plan Chart Review: Pt had episode of high BP 150 and palpitations so cardiology was consulted, appreciate Dr. Miranda's help BP currently 121/70 WBC 12.6 no change from yesterday Na+ 132 K+ 3.4 Kidney's normal AST/ALT 66/128 INR 1.2 Lovenox 40 sub q BID Pt currently on Coumadin Patient Interview: Dr. Miranda was interviewing pt prior to interview. Pt states she had and Echo done. Pt states her pain is okay Pt denies having a BM but states she has not eaten much Physical exam stable. Lungs sound perfect. Labs were discussed and pt is low on K+, so we will supplement. BP looked perfect AFVSS, Pleasant, up in chair, O x 3 Irr Irr, CTAB diminished in bases No edema Laboratory Tests 07/13/17 05:45 Assessment: Status post uncomplicated right total knee replacement by Dr. Novak POD # 2 Chronic atrial fibrillation on Coumadin therapy restarted and maintained on Lovenox bridge in meantime Hypertension Osteoarthritis IBS Palpitations last night prompting Dr Miranda consultation and ECHO obtained results pending Hyponatremia due to HCTZ so will hold tonight Hypokalemia will replace PO Plan: IS BM regimen Check labs in am Coumadin treatment K+ supplementation Hold HCTZ Scribed by Angelia Cuadra under the direct supervision of Dr. Braun. FRANCHESCA BRAUN DO Jul 13, 2017 10:42
[2017-07-13 12:00] VITALS: BP 104/61
--- NOTE | 2017-07-13 13:34 | Physical Therapy Daily Note ---
PT Daily Note-Current Subjective Patient is asleep upon PT entering but agrees to PT. She states that she is feeling sore, but her R knee only really hurts when she is up and on it. Pain Numeric Pain Scale: 6 Location: Right Location Body Site: Knee Pain Description: Ache, Acute Comment: Only a 6/10 when she is moving on it Appearance Patient appears healthy. Mental Status Patient Orientation: Normal For Age Attachments: Oxygen Transfers Functional [place] Measure 0=Not Assessed/NA 4=Minimal Assistance 1=Total Assistance 5=Supervision or Setup 2=Maximal Assistance 6=Modified [place] 3=Moderate Assistance 7=Complete IndependenceIRFPAI Quality Coding Scale 6 Independent with activity with or without an assistive device 5 Patient requires set up or clean up by helper. Patient completes activity by themselves 4 Supervision or touching assist (CGA). [place] provide cues , steadying assist 3 The helper provides less than half the effort to complete the activity 2 The helper provides more than half the effort to complete the activity 1 Dependent. The helper does all the effort to complete an activity 7 Patient refused to complete or attempt activity 9 The patient did not perform the activity before the current illness or injury 88 Not attempted due to Medical conditions or safety concerns Transfers (B, C, W/C) (FIM): 5 Supine to/from Sit: 5 Sit to/from Stand: 5 Patient performs transfers with SBA from PT. Weight Bearing Right Lower Extremity: Right Full Weight Bearing Left Lower Extremity: Left Full Weight Bearing Gait Training Gait (FIM): 2 Distance (FIM): 2=194-34 ft (50) Distance: 50' Gait Level of Assist: 5 Gait Persons Needed: 1 Gait Assistive Device: FWW Patient exhibits step through gait. Exercises Supine Ex: Ankle pumps (1 set R LE), Quad Set (1 set R LE), Heel Slides (1 set R LE) Supine Reps: 10 Treatments CPM 0-[address] Assessment Current Status: Good Progress Patient has progressed well and ambulation is improving. Patient could be ready for safe discharge in the next day. PT Senior Care Goals Senior Care Goals PT Senior Care Goals Time Frame: Jul 17, 2017 Transfers (B,C,W/C) (FIM): 5 Gait (FIM): 5 Gait Assistive Device: FWW PT Plan Problem List Problem List: Functional Strength, Safety, Balance, Gait, Bed Mobility, ROM Treatment/Plan Treatment Plan: Continue Plan of Care Treatment Plan: Bed Mobility, Education, Functional Activity [place], Functional Strength, Gait, Safety, Therapeutic Exercise, Transfers Treatment Duration: Jul 17, 2017 Frequency: 11 times per week Estimated Hrs Per Day: 1 hour per day Patient and/or Family Agrees t: Yes Discharge Recommendations Therapy D/C Recommendations: Home w/ Family Support Equpiment Recommendations-D/C: Front Wheeled Walker Time/GCodes Time In: 101 Time Out: 126 Total Billed Treatment Time: 25 Total Billed Treatment 1 visit EX 10 min GT 15 min SIRENA EUCEDA PT Jul 13, 2017 13:34
--- NOTE | 2017-07-13 14:52 | Occupational Ther Daily Note ---
OT Current Status-Daily Note Subjective No pain reported. Appearance Pt. declined showering. Agreed to spongebathe however. Mental Status/Objective Patient Orientation: Person, Place Functional [place] Measure 0=Not Assessed/NA 4=Minimal Assistance 1=Total Assistance 5=Supervision or Setup 2=Maximal Assistance 6=Modified [place] 3=Moderate Assistance 7=Complete [place] Attachments: IV ADL-Treatment Bathing (FIM): 5 (SBA in stance to wash peter area. Pt. able to wash all other areas at side of bed.) Upper Body (FIM): 5 Lower Body Dressing (FIM): 5 (Pt. able to doff/don underwear, shorts, socks. OT doffed and donned ADRIAN hose.) Transfers (B, C, W/C) (FIM): 5 (SBA to stand at bedside using walker.) Other Treatment Pt. able to complete spongebath on side of bed. Tolerated this well. No adaptive equipment needed. Education OT Patient Education: Correct positioning, Modified ADL techniques, Progress toward Goal/Update tx plan, Purpose of tx/functional activities, Reviewed precautions, Rehab process, Transfer techniques Teaching Recipient: Patient Teaching Methods: Demonstration, Discussion Response to Teaching: Verbalize Understanding, Return Demonstration OT Short Term Goals Short Term Goals 1=Demonstrate adherence to instructed precautions during ADL tasks. 2=Patient will verbalize/demonstrate understanding of assistive devices/ modifications for ADL. 3=Patient will improve strength/tolerance for activity to enable patient to perform ADL's. OT Novelty Chain Maker Goals Custodial Goals Time Frame: Jul 19, 2017 Eating (FIM): 6 Grooming(FIM): 6 Bathing(FIM): 5 Upper Body Dressing(FIM): 6 Lower Body Dressing(FIM): 6 Toileting(FIM): 6 Transfers (B,C,W/C) (FIM): 6 Toilet/Commode Transfer(FIM): 6 Shower Transfer(FIM): 5 Additional Goals: 1-Demonstrate ADL Tasks, 2-Verbalize Understanding, 3- ImproveStrength/[place]all 1=Demonstrate adherence to instructed precautions during ADL tasks. 2=Patient will verbalize/demonstrate understanding of assistive devices/ modifications for ADL. 3=Patient will improve strength/tolerance for activity to enable patient to perform ADL's. OT Education/Plan Discharge Recommendations Plan/Recommendations: Discontinue OT (Pt. requires SBA due to room set up. Will likely be Mod I in familiar environment.) Therapy D/C Recommendations: Home w/ Family Support Target Placement Home with spouse assist. Treatment Plan/Plan of Care Treatment,Training & Education: Yes Plan of Care: ADL Retraining, Functional Mobility, UE Funct Exercise/Act Treatment Duration: Jul 19, 2017 Frequency: 5 times per week Estimated Hrs Per Day: .25 hour per day Agreement: Yes Rehab Potential: Good All goals met with ADL training. Pt. to discharge tomorrow per pt. Time/GCodes Start Time: 11:45 Stop Time: 12:15 Total Time Billed (hr/min): 30 Billed Treatment Time 1, ADL x 2 IRLANDA ROUSSEAU OT Jul 13, 2017 14:52
[2017-07-13 16:31] VITALS: BP 105/64
[2017-07-13 19:34] VITALS: BP 132/88
--- NOTE | 2017-07-13 19:43 | Progress Note (SOAP) ---
Subjective Date Seen by Provider: Jul 13, 2017 Time Seen by Provider: 19:42 Subjective/Events-last exam doing well, currently no complaints Objective Exam Vital Signs Date Time Temp Pulse Resp B/P (MAP) Pulse Ox O2 Delivery O2 Flow Rate FiO2 07/13/17 19:34 98.2 83 22 132/88 97 Nasal Cannula 4.00 07/13/17 19:07 93 Nasal Cannula 4.00 07/13/17 16:31 97.2 76 18 105/64 92 Nasal Cannula 4.00 07/13/17 14:24 91 Nasal Cannula 4.00 07/13/17 13:00 53 07/13/17 12:00 97.0 61 18 104/61 92 Nasal Cannula 4.00 07/13/17 11:35 90 Nasal Cannula 4.00 07/13/17 09:39 93 Nasal Cannula 3.50 07/13/17 08:00 98.3 85 18 121/70 93 Nasal Cannula 4.00 07/13/17 07:28 93 Nasal Cannula 4.00 07/13/17 07:00 86 07/13/17 04:30 97.7 91 18 150/80 97 Nasal Cannula 4.00 07/13/17 02:25 93 Nasal Cannula 4.00 07/13/17 01:00 97 07/13/17 00:45 98.3 100 18 142/86 94 Nasal Cannula 4.00 07/12/17 22:17 92 Nasal Cannula 4.00 07/12/17 21:55 105 07/12/17 21:00 Nasal Cannula 2.00 07/12/17 20:27 97.7 110 22 151/82 97 Nasal Cannula 4.00 I & O 07/14/17 07:00 Intake Total 1210 ml Output Total 675 ml Balance 535 ml Capillary Refill : General Appearance: No Apparent Distress Extremity: Normal Capillary Refill, Normal Inspection, No Calf Tenderness, No Pedal Edema Neurologic/Psychiatric: Alert, Oriented x3, No Motor/Sensory Deficits, Normal Mood/Affect, chemical tester II-XII Norm as Tested Results Lab Laboratory Tests 07/13/17 05:45: White Blood Count 12.6H, Red Blood Count 4.92, Hemoglobin 12.9, Hematocrit 40, Mean Corpuscular Volume 81, Mean Corpuscular Hemoglobin 26, Mean Corpuscular Hemoglobin Concent 32, Red Cell Distribution Width 14.3, Platelet Count 246, Mean Platelet Volume 11.2H, Prothrombin Time 15.4H, INR Comment 1.2, Sodium Level 132L, Potassium Level 3.4L, Chloride Level 94L, Carbon Dioxide Level 31, Anion Gap 7, Blood Urea Nitrogen 6L, Creatinine 0.58L, Estimat Glomerular Filtration Rate > 60, BUN/Creatinine Ratio 10, Glucose Level 114H, Calcium Level 9.8, Magnesium Level 1.9, Total Bilirubin 0.9, Aspartate Amino Transf (AST /SGOT) 66H, Alanine Aminotransferase (ALT/SGPT) 128H, Alkaline Phosphatase 124, Total Protein 6.6, Albumin 3.4 Assessment/Plan Assessment/Plan Assess & Plan/Chief Complaint A: S/P right TKA, chronic atrial fibrillation P: Continue current treatment, plan to DC to skilled or swing bed at [facility]. tomorrow. Clinical Quality Measures DVT/VTE Risk/Contraindication: Risk Factor Score Per Nursin RFS Level Per Nursing on Admit: 4+=Very High JAIRO HERNANDEZ DO Jul 13, 2017 7:43 pm
[2017-07-13] MEDS: MONTELUKAST 10 MG (SINGULAIR) TAB PO SCH (20:58)
[2017-07-14 00:47] VITALS: BP 112/63
[2017-07-14] MEDS: RT-ALBUTEROL/IPRATROPIUM 3 ML (DUONEB) VIAL IH SCH ×3 (02:39→10:35)
[2017-07-14 04:57] VITALS: BP 137/80
[2017-07-14 06:20] LABS: BASOPHILS % (AUTO) 0 % (0-10); EOSINOPHILS # (AUTO) 0.2 10^3/uL (0.0-0.3); EOSINOPHILS % (AUTO) 2 % (0-10); LYMPHOCYTES # (AUTO) 0.9 X 10^3 (1.0-4.0); LYMPHOCYTES % (AUTO) 8 % (12-44); MEAN CORPUSCULAR HEMOGLOBIN 27 PG (25-34); MEAN CORPUSCULAR HGB CONC 33 G/DL (32-36); MEAN CORPUSCULAR VOLUME 81 FL (80-99); MEAN PLATELET VOLUME 11.5 FL (7.4-10.4); MONOCYTES # (AUTO) 0.9 X 10^3 (0.0-1.0); MONOCYTES % (AUTO) 8 % (0-12); NEUTROPHILS % (AUTO) 82 % (42-75); PLATELET COUNT 246 10^3/uL (130-400); RED BLOOD COUNT 4.58 10^6/uL (4.35-5.85); RED CELL DISTRIBUTION WIDTH 14.1 % (10.0-14.5)
[2017-07-14 06:27] LABS: INR 1.2 (0.8-1.4); PROTHROMBIN TIME PATIENT 14.9 SEC (12.2-14.7)
[2017-07-14] MEDS: RT-ADVAIR HFA 115/21 MCG PER PUFF IH SCH (06:27)
[2017-07-14 06:38] LABS: ALANINE AMINOTRANSFERASE 87 U/L (0-55); ALBUMIN 3.3 GM/DL (3.2-4.5); ANION GAP 7 MMOL/L (5-14); ASPARTATE AMINO TRANSFERASE 36 U/L (5-34); BILIRUBIN,TOTAL 0.9 MG/DL (0.1-1.0); BLOOD UREA NITROGEN 9 MG/DL (7-18); BUN/CREATININE RATIO 15; CALCIUM 10.2 MG/DL (8.5-10.1); CARBON DIOXIDE 30 MMOL/L (21-32); CHLORIDE 96 MMOL/L (98-107); CREATININE SERUM 0.61 MG/DL (0.60-1.30); GFR ESTIMATED > 60; GLUCOSE 98 MG/DL (70-105); MAGNESIUM 1.9 MG/DL (1.8-2.4); POTASSIUM 3.6 MMOL/L (3.6-5.0); SODIUM 133 MMOL/L (135-145); TOTAL PROTEIN 6.4 GM/DL (6.4-8.2)
--- NOTE | 2017-07-14 06:38 | Progress Note (SOAP) ---
Subjective Date Seen by Provider: Jul 14, 2017 Time Seen by Provider: 06:36 Subjective/Events-last exam No complaints. Feels she is ready for discharge. Objective Exam Vital Signs Date Time Temp Pulse Resp B/P (MAP) Pulse Ox O2 Delivery O2 Flow Rate FiO2 07/14/17 06:27 93 Nasal Cannula 4.00 07/14/17 04:57 98.4 85 18 137/80 94 Nasal Cannula 4.00 07/14/17 02:40 93 Nasal Cannula 4.00 07/14/17 01:00 83 07/14/17 00:47 99.1 85 16 112/63 93 Nasal Cannula 4.00 07/13/17 22:46 94 Nasal Cannula 4.00 07/13/17 21:00 Nasal Cannula 4.00 07/13/17 19:34 98.2 83 22 132/88 97 Nasal Cannula 4.00 07/13/17 19:07 93 Nasal Cannula 4.00 07/13/17 19:00 80 07/13/17 16:31 97.2 76 18 105/64 92 Nasal Cannula 4.00 07/13/17 14:24 91 Nasal Cannula 4.00 07/13/17 13:00 53 07/13/17 12:00 97.0 61 18 104/61 92 Nasal Cannula 4.00 07/13/17 11:35 90 Nasal Cannula 4.00 07/13/17 09:39 93 Nasal Cannula 3.50 07/13/17 08:00 98.3 85 18 121/70 93 Nasal Cannula 4.00 07/13/17 07:28 93 Nasal Cannula 4.00 07/13/17 07:00 86 Capillary Refill : General Appearance: No Apparent Distress Respiratory: Lungs Clear Cardiovascular: Normal Peripheral Pulses, Irregularly Irregular Gastrointestinal: non tender, soft Extremity: Normal Capillary Refill, Normal Inspection, No Calf Tenderness, No Pedal Edema Neurologic/Psychiatric: Alert, Oriented x3, No Motor/Sensory Deficits, Normal Mood/Affect, burr bench hand II-XII Norm as Tested Skin: Normal Color, Warm/Dry (dressing CDI to right knee) Results Lab Laboratory Tests 07/14/17 05:34: White Blood Count 11.0, Red Blood Count 4.58, Hemoglobin 12.3, Hematocrit 37, Mean Corpuscular Volume 81, Mean Corpuscular Hemoglobin 27, Mean Corpuscular Hemoglobin Concent 33, Red Cell Distribution Width 14.1, Platelet Count 246, Mean Platelet Volume 11.5H, Neutrophils (%) (Auto) 82H, Lymphocytes (%) (Auto) 8L, Monocytes (%) (Auto) 8, Eosinophils (%) (Auto) 2, Basophils (%) (Auto) 0, Neutrophils # (Auto) 9.0H, Lymphocytes # (Auto) 0.9L, Monocytes # (Auto) 0.9, Eosinophils # (Auto) 0.2, Basophils # (Auto) 0.0, Prothrombin Time 14.9H, INR Comment 1.2 Assessment/Plan Assessment/Plan Assess & Plan/Chief Complaint A: s/p right TKA P: DC to [facility] today. Dr. Addison can sign off from a medical standpoint prior to patient leaving. Clinical Quality Measures DVT/VTE Risk/Contraindication: Risk Factor Score Per Nursin RFS Level Per Nursing on Admit: 4+=Very High SHAWNEE GONSALES APRN Jul 14, 2017 6:38 am
[2017-07-14] MEDS ORDERED: ENOX40DI8 SC (06:44)
[2017-07-14] MEDS ORDERED: TRAM50TA2 PO (06:44)
[2017-07-14] MEDS ORDERED: HYDR-3820 PO (06:44)
[2017-07-14] MEDS ORDERED: METO-274 PO (06:44)
--- NOTE | 2017-07-14 06:48 | Discharge Inst-Skilled Nursing ---
Discharge Inst-Skilled NF Patient Instructions Patient Problems: s/p right TKA debility hyponatremia chronic atrial fibrillation Goal: independence with ADL's Patient Instructions: Please refer to Dr. Novak's TKA DC instructions When discharged from swing bed or alf unit please arrange home health care physical therapy 5x/week x 2 weeks Consult/Follow Up/Orders Follow Up Appt.: f/u with Dr. Novak in 3 weeks Skilled NF Admit to: Certification (SNF) I certify that SNF services are required to be given on an inpatient basis because of the above named patient's need for alf care on a continuing basis for the conditions(s) for which he/she was receiving inpatient hospital services prior to his/her transfer to the SNF. Senior Living Facility Order: Nursing Services, Physical Therapy-Evaluate & Treat Discharge Diet: Cardiac Diet Daily Activity as Tolerated: Yes New & Resume Previous Orders New & Resume Previous Orders Continue home meds Take coumadin 2.5mg daily until INR is >2. When INR >2 stop lovenox BID. Other Instructions polar care unit to right knee CPM machine about 6 hours per day ADRIAN Gonsales Jul 14, 2017 06:45 SHAWNEE GONSALES APRN Jul 14, 2017 6:48 am
[2017-07-14 08:00] VITALS: BP 170/82
[2017-07-14] MEDS: SENNA W/DOCUSATE (SENOKOT S) TABLET PO SCH (08:27)
[2017-07-14] MEDS: meTOprolol SUCCINATE 100 MG (TOPROL XL) TAB PO SCH (08:27)
[2017-07-14] MEDS: DILTIAZEM 240 MG (CARDIZEM CD) CAP PO SCH (08:27)
[2017-07-14] MEDS: ENOXAPARIN 40 MG/0.4 ML (LOVENOX) SYR SC SCH (08:27)
[2017-07-14] MEDS: warFARin 2.5 MG (COUMADIN) TAB PO SCH (08:27)
--- NOTE | 2017-07-14 09:01 | Progress Note-Cardiology ---
Cardiology SOAP Progress Note Subjective: Sitting up in bed. Denies any c/o CP, palpitations, syncope or near syncope. States she is transferring to skilled facility today. Objective: I&O/Vital Signs Vital Sign - Last 12Hours 07/13/17 07/13/17 07/14/17 07/14/17 21:00 22:46 00:47 01:00 Temp 99.1 Pulse 85 83 Resp 16 B/P (MAP) 112/63 Pulse Ox 94 93 O2 Delivery Nasal Cannula Nasal Cannula Nasal Cannula O2 Flow Rate 4.00 4.00 4.00 07/14/17 07/14/17 07/14/17 02:40 04:57 06:27 Temp 98.4 Pulse 85 Resp 18 B/P (MAP) 137/80 Pulse Ox 93 94 93 O2 Delivery Nasal Cannula Nasal Cannula Nasal Cannula O2 Flow Rate 4.00 4.00 4.00 Weight (Pounds): 185 Weight (Ounces): 8.0 Weight (Calculated Kilograms): 84.163075 Constitutional: appears stated age, No apparent distress, well-developed, well- nourished Respiratory: No accessory muscle use, No respiratory distress, lungs clear to percussion, lungs clear to auscultation Cardiovascular: irregularly irregular, No JVD, S1 and S2 Gastrointestional: No tender, soft, round, audible bowel sounds, No spleenomegaly Extremities: No clubbing, No cyanosis, No significant edema Neurologic/Psychiatric: alert, oriented x 3, power is 5/5 both on sides Skin: No rash, No ulcerations, other (Dressing to right knee D&I) Results/Procedures: Labs Laboratory Tests 07/14/17 05:34: White Blood Count 11.0, Red Blood Count 4.58, Hemoglobin 12.3, Hematocrit 37, Mean Corpuscular Volume 81, Mean Corpuscular Hemoglobin 27, Mean Corpuscular Hemoglobin Concent 33, Red Cell Distribution Width 14.1, Platelet Count 246, Mean Platelet Volume 11.5H, Neutrophils (%) (Auto) 82H, Lymphocytes (%) (Auto) 8L, Monocytes (%) (Auto) 8, Eosinophils (%) (Auto) 2, Basophils (%) (Auto) 0, Neutrophils # (Auto) 9.0H, Lymphocytes # (Auto) 0.9L, Monocytes # (Auto) 0.9, Eosinophils # (Auto) 0.2, Basophils # (Auto) 0.0, Prothrombin Time 14.9H, INR Comment 1.2, Sodium Level 133L, Potassium Level 3.6, Chloride Level 96L, Carbon Dioxide Level 30, Anion Gap 7, Blood Urea Nitrogen 9, Creatinine 0.61, Estimat Glomerular Filtration Rate > 60, BUN/Creatinine Ratio 15, Glucose Level 98, Calcium Level 10.2H, Magnesium Level 1.9, Total Bilirubin 0.9, Aspartate Amino Transf (AST/SGOT) 36H, Alanine Aminotransferase (ALT/SGPT) 87H, Alkaline Phosphatase 102, Total Protein 6.4, Albumin 3.3 Laboratory Tests 07/13/17 05:45 07/14/17 05:34 A/P: Assessment: Chronic a-fib (reports diagnosed approx 2 years ago) - controlled ventricular rate Echo of 07/13/17: LVEF 60-65%, mod MAC, no significant valvular heart disease, PASP 40 - 45 mmHg Reports stress test approx 2 years ago which she reports as "normal" Reports echocardiogram approx 2 years ago which she reports as "normal" Denies h/o sleep apnea, but does report oxygen desaturation at hs for which she has supplemental oxygen OAC with warfarin - managed by her primary running specialist Dr. Bobo HTN S/P right knee surgery on 07-12-17 Plan: Chronic a-fib with a controlled ventricular rate. Continue Diltiazem for rate control. Chronic OAC with warfarin which we will continue for stroke prophylaxis. Bridge with Lovenox until INR greater than 2.0, then stop. Continue BB and ARB for HTN. Monitor lab closely Plan is to transfer to [facility] Advise out pt f/u with primary running specialist (Dr. Bobo) and INR f/u BLAISE VASQUEZ Jul 14, 2017 09:01
--- NOTE | 2017-07-14 09:59 | Physical Therapy Daily Note ---
PT Daily Note-Current Subjective Patient was awake among PT entering the room. Patient states she is feeling a little better today, but she had some trouble sleeping last night. Patient is on 4.0 L of oxygen. Pain Numeric Pain Scale: 5-Moderate Pain Location: Right Location Body Site: Knee Pain Description: Ache Appearance Patient appears in good health. Mental Status Patient Orientation: Normal For Age Attachments: Oxygen Transfers Functional [place] Measure 0=Not Assessed/NA 4=Minimal Assistance 1=Total Assistance 5=Supervision or Setup 2=Maximal Assistance 6=Modified [place] 3=Moderate Assistance 7=Complete IndependenceIRFPAI Quality Coding Scale 6 Independent with activity with or without an assistive device 5 Patient requires set up or clean up by helper. Patient completes activity by themselves 4 Supervision or touching assist (CGA). [employer] provide cues , steadying assist 3 The helper provides less than half the effort to complete the activity 2 The helper provides more than half the effort to complete the activity 1 Dependent. The helper does all the effort to complete an activity 7 Patient refused to complete or attempt activity 9 The patient did not perform the activity before the current illness or injury 88 Not attempted due to Medical conditions or safety concerns Transfers (B, C, W/C) (FIM): 5 Supine to/from Sit: 5 Sit to/from Stand: 5 Patient performs transfers with SBA from PT. Weight Bearing Right Lower Extremity: Right Full Weight Bearing Left Lower Extremity: Left Full Weight Bearing Gait Training Gait (FIM): 3 Distance (FIM): 3=150 ft Distance: 150' Gait Level of Assist: 5 Gait Persons Needed: 1 Gait Assistive Device: FWW Patient demonstrates a slow step through gait. Patient's gait is mostly limited by oxygen levels and limited aerobic capacity due to her COPD and previous sedentary lifestyle. Exercises Supine Ex: Quad Set (1 set R LE), Heel Slides (1 set R LE), Short Arc Quads (1 set R LE) Supine Reps: 10 Assessment Current Status: Good Progress Patient will progress with exercises as aerobic capacity and R LE pain tolerance improves. Patient has progressed well since surgery and is a good candidate for discharge on this date. PT Roofing Applicator Goals Roofing Applicator Goals PT Roofing Applicator Goals Time Frame: Jul 17, 2017 Transfers (B,C,W/C) (FIM): 5 Gait (FIM): 5 Gait Assistive Device: FWW PT Plan Problem List Problem List: Activity Tolerance, Functional Strength, Safety, Balance, Gait, ROM Treatment/Plan Treatment Plan: Continue Plan of Care Treatment Plan: Bed Mobility, Education, Functional Activity Randall, Functional Strength, Gait, Safety, Therapeutic Exercise, Transfers Treatment Duration: Jul 17, 2017 Frequency: 11 times per week Estimated Hrs Per Day: 1 hour per day Patient and/or Family Agrees t: Yes Discharge Recommendations Therapy D/C Recommendations: Home w/ Family Support Equpiment Recommendations-D/C: Front Wheeled Walker Time/GCodes Time In: 815 Time Out: 845 Total Billed Treatment Time: 30 Total Billed Treatment 1 visit EX 15 min GT 15 min TREVOR LEBLANC PT Jul 14, 2017 09:58
[2017-07-14] MEDS ORDERED: WARF3TAB6 PO (11:33)
--- NOTE | 2017-07-14 11:36 | Progress Note-Hospitalist ---
Progress Note HPI/CC on Admission CC: Medical management following right total knee replacement POD # 1 uncomplicated HPI: This is a 72 yoWF pt who underwent uncomplicated right knee replacement. She remains afebrile, vitals stable. I reviewed home medication and pt is on Coumadin. WBC 12.2, CMP normal, BMP normal, INR 1.3 Patient Interview: Pt states she remembers me from her last [facility] stay in 03/11 and pt confirms recovering well. Pt states she feels itchy around her head and shoulders. Pt states she has been receiving Benadryl Labs were discussed and are okay Pt confirms PCP as Mary Yu and Dr. Godinez as Information Services Assistant and Dr Bobo is Front Edger Pt confirms using O2 at night. Physical exam stable Pt denies having a BM yet and states she did not have issues with constipation after her last DC. Pt states she stayed in [place] swingbed for one week. Pt laughed about having to take PO K+ in [place]. Pt confirms that she will go to [place] like before. Pt confirms using IS, but states not as often because she keeps sleeping Pt states she brought some of her home meds Scribed by Angelia Cuadra under the direct supervision of Dr. Braun. Progress Notes/Assess & Plan Date Seen 07/14/17 Time Seen by Provider: 10:15 Admission Dx/Process Assessment: Status post uncomplicated right total knee replacement by Dr. Novak POD # 1 Chronic atrial fibrillation on Coumadin therapy restarted last night Hypertension Osteoarthritis IBS Diagonsis/Assessment & Plan Chart Review: DC planning per ortho to [place] No fever Vitals stable WBC 11 Hgb 12.3 Na+ 133 AST/ALT 36/87 INR 1.2 Patient Interview: Pt confirms using 2.5 L O2 at home at night. Pt confirms going to [place] last time with O2 and states she was on 3 L Blood thinning was discussed and I will consult Dr. Miranda for appropriate dosage of blood thinning injections. These will need to be boosted and pt states she can have these monitored while at [place]. Pt states that her will pick her up to transfer to [place] upon DC. Pt denies having BMs and states she has not eaten much Physical exam stable. Lungs sound perfect. Pt states she is ready to go to [place] but feels that she is not doing as well as last time. Pt was assured that she is doing well. AFVSS, Pleasant, up in bed, O x 3 Irr Irr, CTAB diminished in bases No edema Laboratory Tests 07/14/17 05:34 Assessment: Status post uncomplicated right total knee replacement by Dr. Novak POD # 3 Chronic atrial fibrillation on Coumadin therapy restarted and maintained on Lovenox bridge in meantime until therapeutic INR for CVA prophylaxis Hypertension Osteoarthritis IBS Palpitations last night prompting Dr Miranda consultation and ECHO obtained results pending Hyponatremia due to HCTZ s/p held Hypokalemia replaced Plan: IS BM regimen Check INR daily at Skilled Coumadin treatment but increase to 3mg up from 2.5 home dose K+ supplementation Scribed by Aneglia Cuadra under the direct supervision of Dr. Braun. FRANCHESCA BRAUN DO Jul 14, 2017 11:35
[2017-07-14] MEDS ORDERED: SCOPOLAMINE PATCH REMOVAL TP SCH (17:14)
--- NOTE | 2017-07-17 11:51 | Discharge Summary ---
Diagnosis/Chief Complaint Date of Admission Jul 11, 2017 at 5:53 am Date of Discharge Jul 14, 2017 at 11:30 am Discharge Date: Jul 14, 2017 Discharge Time: 16:00 Admission Diagnosis Admission Diagnosis Primary OA right knee Discharge Diagnosis Primary OA right knee S/P right total knee arthroplasty Chronic atrial fibrillation with palpatations irritable bowel syndrome hypokalemia (replaced) hyponatremia secondary to HCTZ Reason Hospital Visit scheduled elective surgery for right TKA Discharge Summary Procedures: Right total knee arthroplasty Consultations Dr. Addison internal medicine Dr. Miranda Cardiology Discharge Physical Examination Allergies: Coded Allergies: betamethasone (Verified Allergy, Intermediate, HIGH B/P, 03/08/17) povidone-iodine (Verified Allergy, Intermediate, RASH, 03/08/17) prednisone (Verified Allergy, Intermediate, HIGH B/P, HEADACHE, IRR HR, ) soap (Verified Allergy, Intermediate, RASH, 03/08/17) EMIL Inhibitors (Verified Allergy, Mild, 04/16/15) ciprofloxacin (Verified Allergy, Mild, 03/08/17) codeine (Verified Allergy, Mild, 03/08/17) Uncoded Allergies: STEROIDS (Allergy, Intermediate, HEADACHE, 03/08/17) Vitals & I&Os Vital Signs Date Time Temp Pulse Resp B/P (MAP) Pulse Ox O2 Delivery O2 Flow Rate FiO2 07/14/17 13:01 07/14/17 10:35 93 Nasal Cannula 4.00 07/14/17 08:00 97.9 97 18 General Appearance: Alert, Oriented X3 HEENT: PERRLA Respiratory: Clear to Auscultation Cardiovascular: No Murmurs Abdominal: Soft Extremities: No Clubbing, Normal Pulses Skin: No Rashes, No Breakdown, Other (dressing to right knee was clean dry and intact) Neuro: Normal Speech, Normal Tone, Sensation Intact Psych/Mental Status: Mental Status NL Hospital Course The patient had failed conservative treatment and therefore was scheduled for a right TKA. The surgery and the hospital course was overall uneventful. The patient was maintained on DVT prophylaxis as well as IV antibiotic prophylaxis. Discharge Condition at discharge good Instructions to patient/family Please see electronic discharge instructions given to patient. Discharge Medications Reviewed and agree with Discharge Medication list on patient's Discharge Instruction sheet Clinical Quality Measures DVT/VTE Risk/Contraindication: Risk Factor Score Per Nursin RFS Level Per Nursing on Admit: 4+=Very High ILDA,SHAWNEE E TRANSLATOR AND INTERPRETER Jul 17, 2017 11:51 am
== END 2017-07-14 11:30 | disposition swing bed (61) | DRG 470 ==
LOC: 4TH 05:53 → SURG 05:54 → 4TH 11:35
PROVIDERS: ADMIT Orthopaedic Surgery; ATTEND Orthopaedic Surgery
PROC: 0SRC0J9 Replacement of Right Knee Joint with Synthetic Substitute, Cemented, Open Approach (ICD-10-PCS; principal; 2017-07-11 08:04)
DX: M17.11 Unilateral primary osteoarthritis, right knee (principal); J44.9 Chronic obstructive pulmonary disease, unspecified; I10 Essential (primary) hypertension; G43.909 Migraine, unspecified, not intractable, without status migrainosus; K21.9 Gastro-esophageal reflux disease without esophagitis; I48.2 Chronic atrial fibrillation; G56.92 Unspecified mononeuropathy of left upper limb; E87.1 Hypo-osmolality and hyponatremia; K58.9 Irritable bowel syndrome, unspecified; R00.2 Palpitations; E87.6 Hypokalemia; Z99.81 Dependence on supplemental oxygen; Z79.01 Long term (current) use of anticoagulants; Z87.891 Personal history of nicotine dependence; T50.2X5A Adverse effect of carbonic-anhydrase inhibitors, benzothiadiazides and other diuretics, initial encounter
CPT/HCPCS: 36415; 73560; 80048; 80053; 83735; 85025; 85027; 85610; 93005; 93306; 94640; 94664; 94760

== ENCOUNTER 2019-02-11 15:17 | Outpatient (RCR) | payer MEDICARE ==
[~2019-02-11 15:17] MED LIST changes: +ENOX40DI8 SC; -IPRA3AMP IH; +IPRA3AMP31 IH; +LOSA1TAB20 PO; -LOSA1TAB69 PO; +METO-395 PO; +RANI-324 PO; -RANI75TA21 PO; +TRAM50TA2 PO; +WARF3TAB56 PO
[2019-02-19 10:50] VITALS: BP 136/70
[2019-02-21 10:55] VITALS: BP 160/55
[2019-02-21 11:40] VITALS: BP 120/50
[2019-02-26 10:35] VITALS: BP 140/84
[2019-02-26 11:30] VITALS: BP 130/84
[2019-02-28 10:30] VITALS: BP 104/70
[2019-02-28 11:15] VITALS: BP 120/80
[2019-03-05 10:40] VITALS: BP 140/60
[2019-03-05 11:35] VITALS: BP 138/60
[2019-03-07 10:50] VITALS: BP 136/80
[2019-03-07 11:50] VITALS: BP 112/70
[2019-03-12 10:40] VITALS: BP 140/60
[2019-03-12 12:00] VITALS: BP 110/70
[2019-03-14 10:15] VITALS: BP 140/60
[2019-03-14 11:15] VITALS: BP 150/88
[2019-03-19 10:40] VITALS: BP 128/80
[2019-03-19 11:45] VITALS: BP 125/68
[2019-03-21 11:45] VITALS: BP 128/68
[2019-03-21 11:48] VITALS: BP 150/60
[2019-04-02 10:45] VITALS: BP 130/60
[2019-04-02 12:00] VITALS: BP 120/70
[2019-04-04 10:45] VITALS: BP 115/70
[2019-04-04 12:00] VITALS: BP 118/60
[2019-04-09 10:45] VITALS: BP 160/60
[2019-04-09 11:50] VITALS: BP 120/72
[2019-04-11 10:15] VITALS: BP 140/60
[2019-04-11 11:55] VITALS: BP 121/60
[2019-04-16 10:45] VITALS: BP 140/80
[2019-04-16 11:40] VITALS: BP 118/80
[2019-04-18 10:45] VITALS: BP 140/60
[2019-04-18 11:43] VITALS: BP 128/60
[2019-04-23 10:45] VITALS: BP 125/60
[2019-04-23 11:38] VITALS: BP 150/60
[2019-04-25 10:50] VITALS: BP 154/80
[2019-04-25 11:45] VITALS: BP 130/80
== END 2019-05-12 | disposition home or self-care (01) ==
LOC: PULM 15:17
PROVIDERS: ATTEND Internal Medicine Critical Care Medicine
DX: J43.9 Emphysema, unspecified (principal)
CPT/HCPCS: 99211

== ENCOUNTER → 2022-07-22 | Outpatient (CLI) | payer MEDICARE ==
[~2022-07-22] MED LIST changes: +ACHYD1T PO; +CYCL10TA25 PO; -HYDR-3820 PO; -METO-395 PO; +MONT-40 PO; +MTP100TCR PO; -OXYC-471 PO; +OXYC1TAB11 PO; +POTA-169 PO; -POTA20TA8 PO; -TRAM50TA2 PO; +TRM50T PO; -WARF2.5T82 PO; +WRF2.5T PO
--- NOTE | 2022-07-22 14:41 | Diagnostic Imaging Report ---
Indication: Routine screening. No prior mammograms are available for comparison. 2-D and 3-D bilateral screening mammography was performed with CAD. Scattered fibroglandular densities are identified bilaterally. No mass or malignant-appearing microcalcifications are seen. There are occasional benign calcifications noted. Axillae are unremarkable. IMPRESSION: BI-RADS Category 2 No mammographic features suspicious for malignancy are identified. ACR BI-RADS Category 2: Benign findings. Result letter will be mailed to the patient. Note: At least 10% of breast cancer is not imaged by mammography. Dictated by: Dictated on workstation # [id number]
== END ==
LOC: RAD 10:53
PROVIDERS: ATTEND Nurse Practitioner Family
DX: Z12.31 Encounter for screening mammogram for malignant neoplasm of breast (principal)
CPT/HCPCS: 77063; 77067